=== PATIENT | female | born 1950 | race Caucasian/White ===

== ENCOUNTER 2020-06-24 20:01 | Inpatient (IN) ==
[2020-06-24] MEDS ORDERED: 0.9 % SODIUM CHLORIDE 1,000 ML IV ONE (20:19)
[2020-06-24] MEDS ORDERED: ONDANSETRON 4 MG/2 ML VIAL IV ONE (20:23)
--- NOTE | 2020-06-24 20:26 | Emergency Department Note ---
GI Bleed HPI General Chief complaint: Rectal Bleed Stated complaint: rectal bleeding Time Seen by Provider: 06/24/20 20:18 Source: EMS Mode of arrival: wheelchair Limitations: no limitations History of Present Illness HPI Narrative: Narrative: The patient presents to the ED this evening for rectal bleeding. She has a history of GI bleeds. She is on Eliquis for atrial fibrillation. On review of systems, she does complain of abdominal pain for the last couple days. She denies nausea or vomiting. She denies fever. She denies any rectal pain. She does feel lightheaded and has a general overall weakness. She denies focal weakness. Related Data Home Medications Medication Instructions Recorded Confirmed omeprazole 20 mg capsule,delayed 20 mg PO QDAY 02/07/19 06/24/20 release duloxetine 60 mg capsule,delayed 60 mg PO QDAY 02/18/19 06/24/20 release sprinkle diltiazem HCl 300 mg 300 mg PO QDAY 09/19/19 06/24/20 capsule,extended release 24 hr lisinopril 40 mg tablet 40 mg PO QDAY 09/19/19 06/24/20 metformin 500 mg tablet,extended 500 mg PO BID tab 11/12/19 06/24/20 release 24 hr Digestive Advantage 1 tab PO QDAY 02/11/20 06/24/20 amantadine HCl 100 mg capsule 100 mg PO BID 02/11/20 06/24/20 apixaban 5 mg tablet 5 mg PO BID tab 05/10/20 06/24/20 hydromorphone 2 mg tablet 2 mg PO Q4H PRN tab 05/10/20 06/24/20 potassium chloride 10 mEq 10 meq PO QDAY 05/10/20 06/24/20 tablet,extended release pregabalin 200 mg capsule 200 mg PO BID cap 05/10/20 06/24/20 Vitamin D3 1 tab PO QPM 06/24/20 06/24/20 Previous Rx's Medication Instructions Recorded furosemide 20 mg tablet 20 mg PO BID #60 tab 05/10/20 mirabegron 50 mg tablet,extended 25 mg PO QDAY #30 tab 05/13/20 release 24 hr Allergies Allergy/AdvReac Type Severity Reaction Status Date / Time amitriptyline Allergy Severe Unknown Verified 05/10/20 10:16 gabapentin Allergy Severe Unknown Verified 05/10/20 10:16 codeine [CODEINE] Allergy Intermediate RASH Verified 05/10/20 10:16 influenza virus vaccine ts Allergy Intermediate Vomiting Verified 05/10/20 10:16 [id number] (36 mos,up) [From Fluarix] Review of Systems ROS ROS Narrative: Narrative: All systems ED: reviewed and negative except as stated. [facility] Narrative Patient History Narrative: Narrative: Medical/Surgical/Family History All Active Problems (Updated 06/24/20 @ 22:21 by Lev Beltran MD) Urinary incontinence (Chronic) Disequilibrium (Chronic) Aphthae, oral (Chronic) Night cramp (Chronic) Actinic keratosis (Chronic) Perioral dermatitis (Chronic) Type 2 diabetes mellitus (Chronic) Hypertension (Chronic) Hyperlipidemia (Chronic) Intrinsic asthma, unspecified (Chronic) GERD (gastroesophageal reflux disease) (Chronic) Multiple sclerosis (Chronic) Urinary retention (Chronic) Situational depression (Chronic) Sweating (Chronic) [facility] prescription opiate use (Chronic) Low back pain (Chronic) Lumbar spinal stenosis (Chronic) Knee pain (Chronic) Hallux valgus with bunions (Chronic) Dermatitis (Chronic) COPD (chronic obstructive pulmonary disease) (Chronic) Proteinuria (Chronic) Encounter for monitoring chronic NSAID therapy (Chronic) At risk for polypharmacy (Chronic) Colitis (Acute) Edema (Acute) CKD stage G3a/A3, GFR 45-59 and albumin creatinine ratio >300 mg/g (Acute) Overactive bladder (Acute) Chronic pain (Acute) Acute GI bleeding (Acute) Acidosis, lactic (Acute) Leukocytosis, unspecified (Acute) Medical History (Updated 06/24/20 @ 22:21 by Lev Beltran MD) Actinic keratosis Aphthae, oral At risk for polypharmacy Just use 1 SSRI (wean of prozac) and continue duloxetine for neuropathy/chronic pain and anxiety-depression Try just Diltiazem in place of ACEi, BB & CCB for Rate control, anti- proteinuric effect and BP control. Use spironolactone starting with a low dose to avoid elevated K and stop Dyazide. COPD (chronic obstructive pulmonary disease) Dermatitis Perioral Disequilibrium Encounter for monitoring chronic NSAID therapy Chronic Excedrin Migraine use daily for years Nonnephrotic range proteinuria, hypertension, normal GFR Now starting Advil qHS to avoid Excedrine qHS due to caffeine GERD (gastroesophageal reflux disease) Hallux valgus with bunions Hyperlipidemia Hypertension Goal BP 130/80 using Rx with anti-proteinuric effects Intrinsic asthma, unspecified Knee pain [facility] prescription opiate use Low back pain Lumbar spinal stenosis Multiple sclerosis Night cramp Perioral dermatitis Proteinuria Low grade but steadily worsening. Could be DM, HTN or NSAID related. Start by breaking up the RAASI/NSAIDs potential interaction ny using diltiazem in place of High Dose Lisinopril Situational depression Sweating Type 2 diabetes mellitus Problems with hypoglycemia in the past, now elevated glucose and HgA1c on low dose metformin with HgA1c above goal of 7% Urinary incontinence Urinary retention Surgical History History of bilateral oophorectomy History of cataract surgery (~2017) History of cholecystectomy History of hysterectomy History of tonsillectomy and adenoidectomy Family History Family/Other Hypertension Multiple family members with hypertension Stroke Aunt Grandmother Myocardial infarction Stroke Grandfather Stroke Mother Hypertension Social History Smoking Status: Current some day smoker Alcohol Intake Frequency: does not drink Substance Use: does not use Exam Narrative Narrative: Narrative: General Limitations: no limitations General appearance: Present alert and in no apparent distress Head Head: Present atraumatic and normal inspection Eye Eye: Present normal appearance Neck Neck: Present normal inspection, full ROM and trachea midline Chest Chest: Present normal inspection and symmetric chest wall rise Respiratory Respiratory: Present normal lung sounds bilaterally; Absent respiratory distress Cardiovascular Cardiovascular: Present regular rate and irregular rhythm Adbominal Abdominal: Present soft, tenderness (Diffusely with no point of maximal tenderness), guarding (Mild voluntary) and normal bowel sounds; Absent distention, rebound and rigidity Extremities Extremities: Present normal inspection and full ROM Back Back: Present full ROM Neurological Neurological: Present alert, oriented X3 and CN II-XII intact; Absent motor sensory deficit Expanded Neurological Patient oriented to: Present person, place and time Speech: Present fluid speech CRANIAL NERVES: EOM function (II, III, IV, ): Normal, facial sensation (V): Normal, facial palsy (VII): Normal and tongue deviation (XII): Normal Motor strength - LUE: 5/5 Motor strength - RUE: 5/5 Motor strength - LLE: 5/5 Motor strength - RLE: 5/5 SENSORY EXAM UPPER EXTREMITY: Normal: light touch SENSORY EXAM LOWER EXTREMITY: Normal: light touch Psychiatric Psychiatric: Present normal affect and normal mood Skin Skin: Present warm (WNL) and dry Course Reevaluation(s) Reevaluation #1: I spoke to the on-call surgeon, Dr. Templeton. He agreed to admit this patient locally and asked me to write some basic holding orders. He indicated that he would order antibiotics for the patient. He did ask us to place an NG tube prior to the patient leaving the department Time: 22:20 Vital Signs Vital signs: Vital Signs Temperature 97.5 F 06/24/20 20:05 Pulse Rate 87 06/24/20 20:05 Respiratory Rate 30 H 06/24/20 20:05 Blood Pressure 96/77 06/24/20 20:05 Pulse Oximetry (%) 92 06/24/20 20:05 Temperature 97.5 F 06/24/20 20:05 Pulse Rate 96 H 06/24/20 22:19 Respiratory Rate 19 06/24/20 22:19 Blood Pressure 113/77 06/24/20 22:16 Pulse Oximetry (%) 94 06/24/20 22:19 [facility] MDM Narrative Medical decision making narrative: Narrative: The patient presents with rectal bleeding. She has a general overall weakness associated with this. She has a nonfocal neurologic exam so I have no concern for central nervous system origin. She has diffuse abdominal tenderness. Plan to obtain imaging of the abdomen and appropriate labs. We will give fluid in the ED and type and screen. Lab Data Lab results reviewed: Yes I reviewed the patient's lab results. Result diagrams: 06/24/20 20:43 06/24/20 20:43 Labs: Lab Results 06/24/20 06/24/20 06/24/20 Range/Units 20:43 20:43 20:43 WBC 23.1 H (4.5-11.0) K/mcL RBC 5.73 H (4.00-5.20) M/mcL Hgb 14.7 (12.0-15.0) g/dL Hct 49.2 H (36.0-48.0) % MCV 85.9 (80.0-100.0) fL MCH 25.7 L (26.0-34.0) pg MCHC 29.9 L (31.0-36.0) g/dL RDW 15.4 H (11.5-14.5) % Plt Count 303 (140-440) K/mcL MPV 10.9 H (7.4-10.4) fL Neut % (Auto) 85.1 H (38.0-78.0) % Lymph % (Auto) 5.0 L (15.0-49.0) % [place] % (Auto) 9.1 (1.0-12.0) % Eos % (Auto) 0.2 (0.0-7.0) % Baso % (Auto) 0.6 (0.0-2.0) % Lymph # (Auto) 1.15 L (1.50-4.80) K/mcL [place] # (Auto) 2.10 H (0.10-0.90) K/mcL Eos # (Auto) 0.04 (0.00-0.70) K/mcL Baso # (Auto) 0.14 (0.00-0.20) K/mcL Absolute Neutrophils 19.69 H (1.80-8.00) K/mcL POC PT 19.3 H (11.9-14.5) sec PT 15.5 H (11.9-14.5) sec POC INR 1.6 H (0.8-1.2) INR 1.2 H (0.9-1.1) APTT 26.2 (20.0-37.0) sec VBG Lactic Acid (0.5-2.0) mmol/L Sodium 140 (133-145) mmol/L Potassium 4.4 (3.3-5.1) mmol/L Chloride 102 (96-108) mmol/L Carbon Dioxide 19 L (22-30) mmol/L Anion Gap 19.0 H (8.0-16.0) BUN 35 H (8-23) mg/dL Creatinine 1.8 H (0.6-1.1) mg/dL POC Creatinine 2.1 H (0.6-1.2) mg/dL GFR Calculation 28 Glucose 288 H (70-105) mg/dL Calcium 9.6 (8.6-10.4) mg/dL Total Bilirubin 0.3 (0.1-1.0) mg/dL AST 68 H (<32) U/L ALT 27 (<40) U/L Alkaline Phosphatase 257 H (39-117) U/L Total Protein 6.9 (5.9-8.4) gm/dL Albumin 4.2 (3.2-5.2) gm/dL Globulin 2.7 (2.2-3.7) gm/dL Albumin/Globulin Ratio 1.6 (1.0-2.3) 06/24/20 Range/Units 20:43 WBC (4.5-11.0) K/mcL RBC (4.00-5.20) M/mcL Hgb (12.0-15.0) g/dL Hct (36.0-48.0) % MCV (80.0-100.0) fL MCH (26.0-34.0) pg MCHC (31.0-36.0) g/dL RDW (11.5-14.5) % Plt Count (140-440) K/mcL MPV (7.4-10.4) fL Neut % (Auto) (38.0-78.0) % Lymph % (Auto) (15.0-49.0) % [place] % (Auto) (1.0-12.0) % Eos % (Auto) (0.0-7.0) % Baso % (Auto) (0.0-2.0) % Lymph # (Auto) (1.50-4.80) K/mcL [place] # (Auto) (0.10-0.90) K/mcL Eos # (Auto) (0.00-0.70) K/mcL Baso # (Auto) (0.00-0.20) K/mcL Absolute Neutrophils (1.80-8.00) K/mcL POC PT (11.9-14.5) sec PT (11.9-14.5) sec POC INR (0.8-1.2) INR (0.9-1.1) APTT (20.0-37.0) sec VBG Lactic Acid 4.6 H* (0.5-2.0) mmol/L Sodium (133-145) mmol/L Potassium (3.3-5.1) mmol/L Chloride (96-108) mmol/L Carbon Dioxide (22-30) mmol/L Anion Gap (8.0-16.0) BUN (8-23) mg/dL Creatinine (0.6-1.1) mg/dL POC Creatinine (0.6-1.2) mg/dL GFR Calculation Glucose (70-105) mg/dL Calcium (8.6-10.4) mg/dL Total Bilirubin (0.1-1.0) mg/dL AST (<32) U/L ALT (<40) U/L Alkaline Phosphatase (39-117) U/L Total Protein (5.9-8.4) gm/dL Albumin (3.2-5.2) gm/dL Globulin (2.2-3.7) gm/dL Albumin/Globulin Ratio (1.0-2.3) Radiology Data Radiology results reviewed: Yes I reviewed the patient's radiology results. CC TIME Critical Care Time Critical Care Time: Yes Total Critical Care Time: 85 Discharge Plan Patient/Caregiver Discharge Instructions Pt seen by POMOLOGIST/PA only: No Clinical Impression: Acute GI bleeding, Acidosis, lactic Leukocytosis, unspecified Qualifiers: Leukocytosis type: unspecified Qualified Code(s): D72.829 - Elevated white blood cell count, unspecified Patient Disposition: Xfer As Inpt ([facility]) Condition: Serious Follow up with: Miya Crocker MD [Primary Care Provider] - Prescriptions: No Action Myrbetriq 50 mg tablet extended release 24 hr 25 mg PO QDAY Qty: 30 RF: 3 omeprazole 20 mg capsule,delayed release(DR/EC) 20 mg PO QDAY RF: 0 metformin 500 mg tablet extended release 24 hr 500 mg PO BID RF: 0 pregabalin 200 mg capsule 200 mg PO BID RF: 0 hydromorphone 2 mg tablet 2 mg PO Q4H PRN (Reason: Pain) RF: 0 amantadine HCl 100 mg capsule 100 mg PO BID RF: 0 Digestive Advantage 1 tab PO QDAY RF: 0 potassium chloride 10 mEq tablet extended release 10 meq PO QDAY RF: 0 furosemide 20 mg tablet 20 mg PO BID Qty: 60 RF: 11 Vitamin D3 50 mcg 1 tab PO QPM RF: 0 duloxetine 60 mg capsule, delayed rel sprinkle 60 mg PO QDAY RF: 0 diltiazem HCl [Cartia XT] 300 mg capsule,extended release 24hr 300 mg PO QDAY RF: 0 lisinopril 40 mg tablet 40 mg PO QDAY RF: 0 Eliquis 5 mg tablet 5 mg PO BID RF: 0
[2020-06-24] MEDS ORDERED: 0.9 % SODIUM CHLORIDE 250 ML IV SCH (20:30)
[2020-06-24 20:58] LABS: POC Creatinine 2.1 mg/dL (0.6-1.2)
[2020-06-24 21:00] LABS: POC INR 1.6 (0.8-1.2); POC Pro Time 19.3 sec (11.9-14.5)
[2020-06-24] MEDS: morphine 2 MG/ML VIAL IV PRN ×3 (21:05→23:22)
[2020-06-24 21:45] LABS: Basophils # (Auto) 0.14 K/mcL (0.00-0.20); Basophils % (Auto) 0.6 % (0.0-2.0); Eosinophils # (Auto) 0.04 K/mcL (0.00-0.70); Eosinophils % (Auto) 0.2 % (0.0-7.0); Hematocrit 49.2 % (36.0-48.0); Hemoglobin 14.7 g/dL (12.0-15.0); INR 1.2 (0.9-1.1); Lymphocytes # (Auto) 1.15 K/mcL (1.50-4.80); Mean Cell Volume 85.9 fL (80.0-100.0); Mean Corpuscular HGB Conc 29.9 g/dL (31.0-36.0); Mean Platelet Volume 10.9 fL (7.4-10.4); Monocytes % (Auto) 9.1 % (1.0-12.0); Neutrophils % (Auto) 85.1 % (38.0-78.0); Partial Thromboplastin Time 26.2 sec (20.0-37.0); Platelet Count 303 K/mcL (140-440); Prothrombin Time 15.5 sec (11.9-14.5); RBC 5.73 M/mcL (4.00-5.20); Red Cell Distribution Width 15.4 % (11.5-14.5); WBC 23.1 K/mcL (4.5-11.0)
[2020-06-24 21:54] LABS: ALT/SGPT 27 U/L (<40); AST/SGOT 68 U/L (<32); Albumin 4.2 gm/dL (3.2-5.2); Albumin/Globulin Ratio 1.6 (1.0-2.3); Alkaline Phosphatase 257 U/L (39-117); Bilirubin,Total 0.3 mg/dL (0.1-1.0); Blood Urea Nitrogen 35 mg/dL (8-23); Calcium 9.6 mg/dL (8.6-10.4); Carbon Dioxide 19 mmol/L (22-30); Chloride 102 mmol/L (96-108); Globulin 2.7 gm/dL (2.2-3.7); Glomerular Filtration Rate 28; Glucose 288 mg/dL (70-105)
[2020-06-24] MEDS ORDERED: ONDANSETRON 4 MG/2 ML VIAL IV PRN ×2 (22:22→22:30)
--- NOTE | 2020-06-24 22:30 | General Surg History&Physical ---
HPI History of Present Illness Patient information: Note initiated : 06/24/20 at 10:29 pm Service Date, if different from initiated Date: [] Patient: Rhea Miles 70 y/o F admitted on for rectal bleeding. Chief Complaint: [] Chief complaint: Rectal bleeding; constipation; abdominal pain; sepsis History of present illness: Ms. Miles is a 70 year old F who was brought to the emergency room for evaluation by her refrigeration plant operator. According to history given by the refrigeration plant operator the patient was having difficulty with bowel movements and had not had a bowel movement for 4days. She complained of increasing abdominal pain but did not have any nausea or vomiting. She was found sitting on the commode and had had a very large bowel movement which was hard. She had some rectal bleeding associated with this bowel movement. She was noted to be in diffuse sweats and was extremely weak. When seen in the emergency room she had tenderness of her abdomen and generalized weakness. She was mentally disoriented and her white blood count was 23.1. Hemoglobin 14.7, BUN 35, creatinine 1.8, lactic acid was 4.6. Abdominal x-ray showed dilated stomach with dilated transverse colon with stool in the right colon and the left colon leaving down to the rectum. This was confirmed by CT. She had some tachycardia. Patient is admitted and with good results and she is now passing liquid stool without difficulty. She still somewhat confused. The patient had a similar episode with rectal bleeding and abdominal pain in April 2019. This was managed as an outpatient and subsequently resolved. Constitutional Constitutional: Present anorexia, chills, fatigue, lethargy, malaise and weakness EENT Eyes: Present other ( Patient is not alert enough to answer questions) Ears: Present decreased hearing Nose, mouth and throat: Present abnormal hearing Cardiovascular Cardiovascular: Present irregular heart rhythm and rapid heart rate; Absent dyspnea and pedal edema Respiratory Respiratory: Absent cough, wheezing and stridor Gastrointestinal Gastrointestinal: Present abdominal pain, constipation, hematochezia and tenesmus Genitourinary Genitourinary: Present difficulty voiding, urinary frequency and urinary urgency Musculoskeletal Additional comments: Difficult to determine Integumentary Integumentary: Present unusual bruising Neurological Neurological: Present abnormal gait, confusion, lack of coordination and restless legs Psychiatric Psychiatric: Present confusion, difficulty concentrating and memory loss Endocrine Endocrine: Present as per HPI Hematologic/Lymphatic Hematologic/Lymphatic: Present easy bleeding (Patient is on chronic Eliquis therapy) Allergic/Immunologic Allergic/Immunologic: Absent tongue swelling, uticaria, wheezing and lip s welling PFSH PFSH All Active Problems (Updated 06/25/20 @ 11:17 by Cindy Templeton MD) Therapeutic opioid-induced constipation (OIC) (Acute) Rectal bleeding (Acute) Urinary incontinence (Chronic) Disequilibrium (Chronic) Aphthae, oral (Chronic) Night cramp (Chronic) Actinic keratosis (Chronic) Perioral dermatitis (Chronic) Type 2 diabetes mellitus (Chronic) Hypertension (Chronic) Hyperlipidemia (Chronic) Intrinsic asthma, unspecified (Chronic) GERD (gastroesophageal reflux disease) (Chronic) Multiple sclerosis (Chronic) Urinary retention (Chronic) Situational depression (Chronic) 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 (Chronic) 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 opiate use (Chronic) Low back pain (Chronic) Lumbar spinal stenosis (Chronic) Knee pain (Chronic) Hallux valgus with bunions (Chronic) Dermatitis (Chronic) COPD (chronic obstructive pulmonary disease) (Chronic) Proteinuria (Chronic) Encounter for monitoring chronic NSAID therapy (Chronic) At risk for polypharmacy (Chronic) Colitis (Acute) Edema (Acute) CKD stage G3a/A3, GFR 45-59 and albumin creatinine ratio >300 mg/g (Acute) Overactive bladder (Acute) Chronic pain (Acute) Acute GI bleeding (Acute) Acidosis, lactic (Acute) Leukocytosis, unspecified (Acute) Medical History (Updated 06/25/20 @ 11:17 by Cindy Templeton MD) Actinic keratosis Aphthae, oral At risk for polypharmacy Just use 1 SSRI (wean of prozac) and continue duloxetine for neuropathy/chronic pain and anxiety-depression Try just Diltiazem in place of ACEi, BB & CCB for Rate control, anti- proteinuric effect and BP control. Use spironolactone starting with a low dose to avoid elevated K and stop Dyazide. COPD (chronic obstructive pulmonary disease) Dermatitis Perioral Disequilibrium Encounter for monitoring chronic NSAID therapy Chronic Excedrin Migraine use daily for years Nonnephrotic range proteinuria, hypertension, normal GFR Now starting Advil qHS to avoid Excedrine qHS due to caffeine GERD (gastroesophageal reflux disease) Hallux valgus with bunions Hyperlipidemia Hypertension Goal BP 130/80 using Rx with anti-proteinuric effects Intrinsic asthma, unspecified Knee pain 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 opiate use Low back pain Lumbar spinal stenosis Multiple sclerosis Night cramp Perioral dermatitis Proteinuria Low grade but steadily worsening. Could be DM, HTN or NSAID related. Start by breaking up the RAASI/NSAIDs potential interaction ny using d iltiazem in place of High Dose Lisinopril Situational depression Sweating Type 2 diabetes mellitus Problems with hypoglycemia in the past, now elevated glucose and HgA1c on low dose metformin with HgA1c above goal of 7% Urinary incontinence Urinary retention Surgical History History of bilateral oophorectomy History of cataract surgery (~2017) History of cholecystectomy History of hysterectomy History of tonsillectomy and adenoidectomy Family History Family/Other Hypertension Multiple family members with hypertension Stroke Aunt Grandmother Myocardial infarction Stroke Grandfather Stroke Mother Hypertension Social History marital status: occupational status: disabled smoking status start date: 02/13/1964 smoking status stop date: 02/13/16 alcohol intake frequency: does not drink substance use type: does not use MEDS/ALLERGIES Home Medications and Allergies Home Medications Medication Instructions Recorded Confirmed Type omeprazole 20 mg capsule,delayed 20 mg PO QDAY 02/07/19 06/24/20 History release duloxetine 60 mg capsule,delayed 60 mg PO QHS 02/18/19 06/25/20 History release sprinkle diltiazem HCl 300 mg 300 mg PO QDAY 09/19/19 06/25/20 History capsule,extended release 24 hr lisinopril 40 mg tablet 40 mg PO QDAY 09/19/19 06/24/20 History metformin 500 mg tablet,extended 500 mg PO BID tab 11/12/19 06/24/20 History release 24 hr Digestive Advantage 1 tab PO QDAY 02/11/20 06/24/20 History amantadine HCl 100 mg capsule 100 mg PO BID 02/11/20 06/25/20 History apixaban 5 mg tablet 5 mg PO BID tab 05/10/20 06/25/20 History furosemide 20 mg tablet 20 mg PO BID #60 tab 05/10/20 06/24/20 Rx hydromorphone 2 mg tablet 2 mg PO Q4H PRN tab 05/10/20 06/24/20 History potassium chloride 10 mEq 10 meq PO QDAY 05/10/20 06/24/20 History tablet,extended release pregabalin 200 mg capsule 200 mg PO BID cap 05/10/20 06/24/20 History mirabegron 50 mg tablet,extended 25 mg PO QDAY #30 tab 05/13/20 06/24/20 Rx release 24 hr Vitamin D3 1 tab PO QPM 06/24/20 06/24/20 History Allergies Allergy/AdvReac Type Severity Reaction Status Date / Time amitriptyline Allergy Unknown Unknown Verified 06/25/20 06:34 gabapentin Allergy Unknown Unknown Verified 06/25/20 06:34 codeine [CODEINE] AdvReac Mild Itching Verified 06/25/20 06:34 influenza virus vaccine ts AdvReac Mild Vomiting Verified 06/25/20 06:34 [id number] (36 mos,up) [From Fluarix] Physical Examination Vital Signs Vital signs: Temp Pulse Resp BP Pulse Ox 97.5 F 96 H 19 113/77 94 06/24/20 20:05 06/24/20 22:19 06/24/20 22:19 06/24/20 22:16 06/24/20 22:19 General physical appearance General physical exam: chronically ill and obese Eyes Eye exam: PERRL, normal ocular movement and other (Unable to determine if patient can focus) ENT ENT exam: decreased hearing Head Head exam IM: Present atraumatic, normal inspection and normocephalic Neck Neck exam: no masses, no bruits, trachea midline, no lymphadenopathy and no venous distension Cardiovascular Cardiovascular exam IM: Present irregular rhythm (Irregularly irregular rhythm with average rate of 130) and tachycardia Respiratory Respiratory exam: normal respiratory effort and clear to auscultation Abdomen Abdomen: Present tender (Diffusely tender in both lower quadrants and in the epigastrium) Rectum Rectum: Present other (Poor anal tone with liquid stool; no fresh blood per rectum; no anal or rectal mass or fissure) Integumentary Integumentary: Present other (Diffuse ecchymoses and bruising in lower extremities and upper extremities) Neurologic Neurologic: Present disoriented, confused, memory loss and other (Unable to determine motor or sensory status) Musculoskeletal Musculoskeletal: Present other (Patient cannot ambulate) Psychiatric Psychiatric: Present other (She is confused and disoriented at this time; speech is not intelligible) Results Labs Result diagrams: 06/25/20 04:59 06/25/20 04:59 Labs: Abnormal lab results 06/24/20 06/24/20 06/24/20 Range/Units 20:43 20:43 20:43 WBC 23.1 H (4.5-11.0) K/mcL RBC 5.73 H (4.00-5.20) M/mcL Hct 49.2 H (36.0-48.0) % MCH 25.7 L (26.0-34.0) pg MCHC 29.9 L (31.0-36.0) g/dL RDW 15.4 H (11.5-14.5) % MPV 10.9 H (7.4-10.4) fL Neut % (Auto) 85.1 H (38.0-78.0) % Lymph % (Auto) 5.0 L (15.0-49.0) % Lymph # (Auto) 1.15 L (1.50-4.80) K/mcL Gove # (Auto) 2.10 H (0.10-0.90) K/mcL Absolute Neutrophils 19.69 H (1.80-8.00) K/mcL POC PT 19.3 H (11.9-14.5) sec PT 15.5 H (11.9-14.5) sec POC INR 1.6 H (0.8-1.2) INR 1.2 H (0.9-1.1) VBG Lactic Acid (0.5-2.0) mmol/L Carbon Dioxide 19 L (22-30) mmol/L Anion Gap 19.0 H (8.0-16.0) BUN 35 H (8-23) mg/dL Creatinine 1.8 H (0.6-1.1) mg/dL POC Creatinine 2.1 H (0.6-1.2) mg/dL Glucose 288 H (70-105) mg/dL AST 68 H (<32) U/L Alkaline Phosphatase 257 H (39-117) U/L 06/24/20 Range/Units 20:43 WBC (4.5-11.0) K/mcL RBC (4.00-5.20) M/mcL Hct (36.0-48.0) % MCH (26.0-34.0) pg MCHC (31.0-36.0) g/dL RDW (11.5-14.5) % MPV (7.4-10.4) fL Neut % (Auto) (38.0-78.0) % Lymph % (Auto) (15.0-49.0) % Lymph # (Auto) (1.50-4.80) K/mcL Gove # (Auto) (0.10-0.90) K/mcL Absolute Neutrophils (1.80-8.00) K/mcL POC PT (11.9-14.5) sec PT (11.9-14.5) sec POC INR (0.8-1.2) INR (0.9-1.1) VBG Lactic Acid 4.6 H* (0.5-2.0) mmol/L Carbon Dioxide (22-30) mmol/L Anion Gap (8.0-16.0) BUN (8-23) mg/dL Creatinine (0.6-1.1) mg/dL POC Creatinine (0.6-1.2) mg/dL Glucose (70-105) mg/dL AST (<32) U/L Alkaline Phosphatase (39-117) U/L Diabetes panel 06/24/20 Range/Units 20:43 Sodium 140 (133-145) mmol/L Potassium 4.4 (3.3-5.1) mmol/L Chloride 102 (96-108) mmol/L Carbon Dioxide 19 L (22-30) mmol/L BUN 35 H (8-23) mg/dL Creatinine 1.8 H (0.6-1.1) mg/dL Glucose 288 H (70-105) mg/dL Calcium 9.6 (8.6-10.4) mg/dL AST 68 H (<32) U/L ALT 27 (<40) U/L Alkaline Phosphatase 257 H (39-117) U/L Total Protein 6.9 (5.9-8.4) gm/dL Albumin 4.2 (3.2-5.2) gm/dL Calcium panel 06/24/20 Range/Units 20:43 Calcium 9.6 (8.6-10.4) mg/dL Albumin 4.2 (3.2-5.2) gm/dL Pituitary panel 06/24/20 Range/Units 20:43 Sodium 140 (133-145) mmol/L Potassium 4.4 (3.3-5.1) mmol/L Chloride 102 (96-108) mmol/L Carbon Dioxide 19 L (22-30) mmol/L BUN 35 H (8-23) mg/dL Creatinine 1.8 H (0.6-1.1) mg/dL Glucose 288 H (70-105) mg/dL Calcium 9.6 (8.6-10.4) mg/dL Adrenal panel 06/24/20 Range/Units 20:43 Sodium 140 (133-145) mmol/L Potassium 4.4 (3.3-5.1) mmol/L Chloride 102 (96-108) mmol/L Carbon Dioxide 19 L (22-30) mmol/L BUN 35 H (8-23) mg/dL Creatinine 1.8 H (0.6-1.1) mg/dL Glucose 288 H (70-105) mg/dL Calcium 9.6 (8.6-10.4) mg/dL Total Bilirubin 0.3 (0.1-1.0) mg/dL AST 68 H (<32) U/L ALT 27 (<40) U/L Alkaline Phosphatase 257 H (39-117) U/L Total Protein 6.9 (5.9-8.4) gm/dL Albumin 4.2 (3.2-5.2) gm/dL All other labs normal. 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 Start Relistor every 12 hours Follow-up abdominal x-rays in the morning Vigorous hydration and control of blood sugars Zosyn IV every 6 hours pending blood cultures Time Spent With Patient Time: Total time spent is greater than 50% in coordination of care (as documented) at patient's floor/unit and/or counseling patient:
[2020-06-24] MEDS ORDERED: HYDROmorphone 0.5 MG/0.5 ML SYRINGE IV PRN (22:36)
[2020-06-24 23:23] LABS: Hemoglobin A1C 7.2 % Hgb (4.0-6.0)
[2020-06-24] MEDS: 0.9 % SODIUM CHLORIDE 1,000 ML IV SCH (23:36)
[2020-06-24] MEDS ORDERED: METHYLNALTREXONE BROMIDE 12 MG/0.6 ML SYRINGE SC SCH (23:45)
[2020-06-24] MEDS: 0.9 % SODIUM CHLORIDE 10 ML SYRINGE IV SCH (23:55)
[2020-06-24] MEDS: PIPERACILLIN SODIUM/TAZOBACTAM 3.375 GM in DEXTROSE 5% IN WATER 50 ML IV SCH (23:55)
[2020-06-25] MEDS: ACETAMINOPHEN 1,000 MG/100 ML BAG IV SCH ×3 (00:42→10:59)
[2020-06-25] MEDS: 0.9 % SODIUM CHLORIDE 10 ML SYRINGE IV SCH ×7 (00:45→20:43)
[2020-06-25 01:06] LABS: Appearance,Urine HAZY (Clear); Bilirubin,Urine Negative (Negative); Color,Urine AMBER; Culture Indicated,Urine No; Glucose,Urine (UA) Negative (Negative); Ketones,Urine 5 mg/dL (Negative); Leukocyte Esterase,Urine Negative /ug (Negative); Mucus,Urine MOD /hpf; Nitrate,Urine Negative (Negative); Protein,Urine 100 mg/dL (Negative); Specific Gravity,Urine 1.026 (1.000-1.035); Urine Amorphous Crystals MOD /hpf; Urine Blood Negative (Negative); Urine Hyaline Cast 27 /lph (0-2); Urine RBC 2 /hpf (0-3); Urine Squamous Epithelial Cell < 1 /hpf (0-4); Urine WBC 2 /hpf (0-4)
[2020-06-25] MEDS: PIPERACILLIN SODIUM/TAZOBACTAM 3.375 GM in DEXTROSE 5% IN WATER 50 ML IV SCH ×6 (05:25→17:33)
[2020-06-25] MEDS ORDERED: DEXTROSE 31 GM ORAL.SUSP PO PRN ×2 (05:43→16:04)
[2020-06-25] MEDS ORDERED: DEXTROSE 50% 50 ML VIAL IV PRN ×2 (05:43→16:04)
[2020-06-25] MEDS: INSULIN LISPRO 1 UNIT/0.01 ML UNIT SQ SCH ×3 (05:48→17:55)
[2020-06-25] MEDS ORDERED: INSULIN LISPRO 1 UNIT/0.01 ML UNIT SQ ONE (05:48)
[2020-06-25 06:16] LABS: Basophils # (Auto) 0.07 K/mcL (0.00-0.20); Basophils % (Auto) 0.4 % (0.0-2.0); Eosinophils # (Auto) 0.01 K/mcL (0.00-0.70); Eosinophils % (Auto) 0.1 % (0.0-7.0); Hematocrit 46.7 % (36.0-48.0); Hemoglobin 14.1 g/dL (12.0-15.0); Lymphocytes # (Auto) 0.45 K/mcL (1.50-4.80); Lymphocytes % (Auto) 2.7 % (15.0-49.0); Mean Cell Volume 84.9 fL (80.0-100.0); Mean Corpuscular HGB Conc 30.2 g/dL (31.0-36.0); Mean Platelet Volume 11.3 fL (7.4-10.4); Monocytes # (Auto) 1.11 K/mcL (0.10-0.90); Monocytes % (Auto) 6.6 % (1.0-12.0); Neutrophils % (Auto) 90.2 % (38.0-78.0); Platelet Count 266 K/mcL (140-440); Red Cell Distribution Width 15.3 % (11.5-14.5); WBC 16.9 K/mcL (4.5-11.0)
[2020-06-25] MEDS ORDERED: METOPROLOL TARTRATE 5 MG/5 ML VIAL IV PRN (06:25)
[2020-06-25] MEDS: METOPROLOL TARTRATE 5 MG/5 ML VIAL IV ONE ×2 (06:50→07:58)
[2020-06-25 07:04] LABS: ALT/SGPT 25 U/L (<40); AST/SGOT 44 U/L (<32); Albumin 3.5 gm/dL (3.2-5.2); Albumin/Globulin Ratio 1.3 (1.0-2.3); Alkaline Phosphatase 159 U/L (39-117); Bilirubin,Direct < 0.2 mg/dL (0-0.3); Bilirubin,Total 0.3 mg/dL (0.1-1.0); Blood Urea Nitrogen 43 mg/dL (8-23); Calcium 9.1 mg/dL (8.6-10.4); Carbon Dioxide 22 mmol/L (22-30); Chloride 102 mmol/L (96-108); Globulin 2.7 gm/dL (2.2-3.7); Glomerular Filtration Rate 30; Glucose 205 mg/dL (70-105); Lactate Dehydrogenase 313 U/L (135-225); Phosphorous 5.5 mg/dL (2.5-4.5); Triglycerides 89 mg/dL (<150); Uric Acid 8.1 mg/dL (2.5-8.0)
[2020-06-25] MEDS ORDERED: PANTOPRAZOLE 40 MG VIAL IV SCH (07:30)
[2020-06-25] MEDS: 0.9 % SODIUM CHLORIDE 1,000 ML IV SCH ×3 (07:41→17:12)
--- NOTE | 2020-06-25 08:57 | Cat Scan Report ---
History: Abdominal pain, rectal bleeding TECHNIQUE: The abdomen was imaged without oral or intravenous contrast scanning from the diaphragm to the symphysis pubis. Sagittal and coronal reformats are created. The radiation exposure was limited using dose reduction technology. FINDINGS: Evaluation of abdominal organs without contrast is somewhat limited. The liver and spleen are normal in size and homogeneous. The gallbladder has been removed. The extrahepatic bile ducts are mildly dilated measure up to 12 mm. Common bile duct tapers to normal caliber to the ampulla. There is no evidence of a stone or mass in the distal duct. The pancreas is normal without evidence of a mass or inflammation. Pancreatic duct is nondilated. The adrenals are normal. Kidneys are normal in size shape and contour. There are multiple intralobar atherosclerotic plaques in both kidneys. Some of these mimicked kidney stones. There is no hydronephrosis. No mass or cyst are identified in either kidney. Moderate amount of atherosclerotic plaque is present in the aorta. Aorta is ectatic. The midportion measures 2.9 x 3.0 cm. Uterus and ovaries are been removed. There is a small appendiceal stump which is noninflamed. Fecal impaction is present throughout the colon. There are no diverticula. No transition point is seen in the large intestine. There is no evidence of colitis. Small intestine is normal in caliber, except for mild dilatation of the terminal ileum where measures 3.2 cm. There is a large amount of ingested fluid in the stomach. Trace amount of ascites is seen deep in the right lower pelvis. There is no evidence of an abscess or adenopathy. Degenerative changes are present at multiple levels in the spine. There is grade 1 spondylolisthesis at L4-5 due to arthritis in the facet joints. Comparison with the prior exam from 04/20/19 shows greater fecal impaction at this time. The extrahepatic bile ducts have increased in diameter. Common bile duct previously measured 8 mm. IMPRESSION: Fecal impaction. The source of the rectal bleeding is not identified. Increased dilatation of the extrahepatic bile ducts. This could be due to a stricture at the ampulla or reservoir effect following the cholecystectomy.. Interpreted and Authenticated by: Calvin Triplett 06/25/20
--- NOTE | 2020-06-25 08:58 | XRay Report ---
HISTORY: Nasogastric tube insertion FINDINGS: Nasogastric tube is been inserted and the body the stomach. The sidehole of the catheter is at the level of the gastroesophageal junction. There is still a moderate amount of fluid and gas in the stomach. Small intestine is nondistended. There is gas and stool in the colon. IMPRESSION: Well-positioned nasogastric tube Interpreted and Authenticated by: Calvin Triplett 06/25/20
[2020-06-25] MEDS ORDERED: METHYLNALTREXONE BROMIDE 12 MG/0.6 ML SYRINGE SQ SCH (09:00)
[2020-06-25] MEDS ORDERED: DOCUSATE SODIUM 100 MG CAPSULE PO SCH (09:00)
--- NOTE | 2020-06-25 09:20 | XRay Report ---
HISTORY: Preop for rectal bleeding FINDINGS: Small band of discoid atelectasis is seen above the left costophrenic sulcus. The lungs are otherwise clear and normally expanded. The heart size and pulmonary vasculature are normal. There is no pleural effusion. Nasogastric tube passes through the esophagus into the stomach. IMPRESSION: Minor discoid atelectasis at the left costophrenic sulcus Interpreted and Authenticated by: Calvin Triplett 06/25/20
--- NOTE | 2020-06-25 09:24 | XRay Report ---
HISTORY: Follow-up ileus FINDINGS: The stomach is now partially decompressed. Nasogastric tube remains in the body and the sidehole at the gastroesophageal junction. The distended large intestine seen on the preceding CT scan has resolved. Small intestine is not distended. There are no abnormal air-fluid levels. No free intra-abdominal air is present. There are clips in the gallbladder fossa. Multiple vascular calcifications are seen in the abdomen or pelvis. IMPRESSION: Resolved ileus Interpreted and Authenticated by: Calvin Triplett 06/25/20
[2020-06-25] MEDS: METOPROLOL TARTRATE 5 MG/5 ML VIAL IV PRN ×5 (09:40→22:14)
[2020-06-25] MEDS ORDERED: 0.9 % SODIUM CHLORIDE 1,000 ML IV ONE (10:30)
--- NOTE | 2020-06-25 11:34 | General Surgery Progress Note ---
SUBJECTIVE Subjective Patient information: Note initiated : 06/25/20 at 11:28 am Service Date, if different from initiated Date: [] Patient: Rhea Miles 70 y/o F admitted on 06/24/20 for rectal bleeding. Chief Complaint: [] Interval history: Patient is more confused today. She seems quite agitated. She does not answer questions appropriately. She has been afebrile. She had multiple bowel movements last evening. There is only a small amount of blood noted. White blood count 16.9, hemoglobin 14.1, hematocrit 46.7, potassium 5.3, BUN 43, creatinine 1.7, lactic acid 2.2. Constitutional Vitals: Vital Signs Temp Pulse Resp BP Pulse Ox 98.4 F 125 H 19 129/74 95 06/25/20 08:01 06/25/20 10:16 06/25/20 10:16 06/25/20 10:16 06/25/20 10:16 Period Temp Pulse Resp BP Sys/Weinstein Pulse Ox Last 24 Hr 97.4 F-98.4 F 86-138 14-30 95-165/69-137 88-96 Intake and Output 06/24/20 06/25/20 06/25/20 21:59 05:59 13:59 Intake Total 2186 042 3862 Output Total 1535 180 Balance 1000 -1385 970 Weight 190 lb 188 lb 8 oz Intake & Output: Intake & Output 06/24/20 06/25/20 06/25/20 21:59 05:59 13:59 Intake Total 4452 118 9789 Output Total 1535 180 Balance 1000 -1385 970 Weight 190 lb 188 lb 8 oz Intake: IV 4799 988 0791 Sodium Chloride 0.9% 1,000 ml @ 1000 1000 150 mls/hr IV .[id number] EMMANUELLE Rx#: [id number] Zosyn 3.375 gm In Dextrose 5% 50 50 in Water 50 ml @ 100 mls/hr IV Q6H EMMANUELLE Rx#:[id number] Output: Gastric Drainage 1275 Right Nare NG/OG 1275 Urine Catheter Amount 260 30 Void Amount 150 Other: Urine Appearance Clear Clear Uretheral (Saleh) Clear Urine Color Dark Chela Light Chela Uretheral (Saleh) Dark Chela Urine Odor Normal Stool Size Small Moderate Stool Color Brown Blood Tinged Blood Tinged Stool Consistency Watery Liquid Loose # of times incontinent of 1 Bowels Head Head exam: Present atraumatic, normal inspection and normocephalic Eye Eye exam: Present EOMI Pupils: Present PERRL ENT ENT exam: Present mucous membranes dry and normal exam Neck Neck exam: Present full ROM; Absent lymphadenopathy, tenderness and thyromegaly Respiratory Respiratory exam: Present normal respiratory exam and CTAB; Absent accessory muscle use, rhonchi and wheezes Cardiovascular Cardiovascular exam: Present irregular rhythm, +S1 and +S2; Absent JVD GI/Abdominal GI/Abdominal exam: Present normal bowel sounds, distended and tenderness (Diffuse abdominal tenderness; active bowel sounds; no mass noted) Rectal Rectal exam: Present normal rectal tone (Poor anal sphincter tone; no solid stool in rectal vault); Absent mass and tenderness Extremities Exam Extremities exam: Present full ROM and normal inspection; Absent calf tenderness, pedal edema and tenderness Neurological Exam Additional comments: Patient is poorly oriented and does not follow commands or answer questions Psychiatric Psychiatric exam: Present agitated and anxious Skin Skin exam: Present petechiae and warm; Absent erythema and pallor A/P Assessment and plan (1) Therapeutic opioid-induced constipation (OIC): Status: Acute (2) Rectal bleeding: Status: Acute (3) Type 2 diabetes mellitus: Status: Chronic Comment: Problems with hypoglycemia in the past, now elevated glucose and HgA1c on low dose metformin with HgA1c above goal of 7% Qualifiers: Diabetes mellitus intermediate teacher insulin use: without intermediate teacher use Diabetes mellitus complication status: with neurologic complications Diabetes mellitus complication detail: with polyneuropathy Qualified Code(s): E11.42 - Type 2 diabetes mellitus with diabetic polyneuropathy (4) Hypertension: Status: Chronic Comment: Goal BP 130/80 using Rx with anti-proteinuric effects Qualifiers: Hypertension type: essential hypertension Qualified Code(s): I10 - Essential (primary) hypertension (5) CKD stage G3a/A3, GFR 45-59 and albumin creatinine ratio >300 mg/g: Status: Acute Comment: Could be diabetic nephropathy but the presentation is not classic. Continue RASSI therapy and diltiazem for their anti-proteinuric effects Every 3-month assessment of random urine protein creatinine ratio Change triamterene hydrochlorothiazide to furosemide for edema (6) Acidosis, lactic: Status: Acute (7) GERD (gastroesophageal reflux disease): Status: Chronic (8) Situational depression: Status: Chronic (9) [facility] prescription opiate use: Status: Chronic (10) COPD (chronic obstructive pulmonary disease): Status: Chronic Narrative A/P Narrative: Continue with RELISTOR Discontinue nasogastric tube Trial of clear liquids MiraLAX p.o. x4 doses Follow-up abdominal x-rays in the morning Check labs in the morning Probably switch to oral medications tomorrow Time Spent With Patient Time: Total time spent is greater than 50% in coordination of care (as documented) at patient's floor/unit and/or counseling patient:
[2020-06-25] MEDS ORDERED: POLYETHYLENE GLYCOL 3350 17 GM PACKET PO SCH (12:00)
[2020-06-25] MEDS ORDERED: morphine 2 MG/ML VIAL IV PRN (16:04)
[2020-06-25] MEDS: PANTOPRAZOLE 40 MG VIAL IV SCH (16:34)
[2020-06-25] MEDS ORDERED: ACETAMINOPHEN 1,000 MG/100 ML BAG IV SCH (17:00)
[2020-06-25] MEDS: POLYETHYLENE GLYCOL 3350 17 GM PACKET PO SCH (17:30)
[2020-06-25] MEDS: DOCUSATE SODIUM 100 MG CAPSULE PO SCH (20:41)
[2020-06-25] MEDS: SENNOSIDES 1 TABLET PO SCH (20:42)
[2020-06-25] MEDS ORDERED: SENNOSIDES 1 TABLET PO SCH (21:00)
[2020-06-25] MEDS ORDERED: hydrALAZINE 20 MG/ML VIAL ONE (22:47)
[2020-06-25] MEDS: hydrALAZINE 20 MG/ML VIAL IV PRN (22:50)
[2020-06-25] MEDS: HYDROmorphone 0.5 MG/0.5 ML SYRINGE IV PRN (23:15)
[2020-06-26] MEDS: PIPERACILLIN SODIUM/TAZOBACTAM 3.375 GM in DEXTROSE 5% IN WATER 50 ML IV SCH ×4 (00:01→17:17)
[2020-06-26] MEDS: POLYETHYLENE GLYCOL 3350 17 GM PACKET PO SCH ×2 (00:17→05:36)
[2020-06-26] MEDS: INSULIN LISPRO 1 UNIT/0.01 ML UNIT SQ SCH ×4 (00:26→17:36)
[2020-06-26] MEDS: 0.9 % SODIUM CHLORIDE 10 ML SYRINGE IV SCH ×6 (00:30→22:34)
[2020-06-26] MEDS: METOPROLOL TARTRATE 5 MG/5 ML VIAL IV PRN ×4 (00:31→06:50)
[2020-06-26] MEDS: 0.9 % SODIUM CHLORIDE 1,000 ML IV SCH ×4 (01:25→13:30)
[2020-06-26] MEDS: HYDROmorphone 0.5 MG/0.5 ML SYRINGE IV PRN ×5 (03:06→23:34)
[2020-06-26] MEDS ORDERED: hydrALAZINE 20 MG/ML VIAL ONE (05:34)
[2020-06-26] MEDS: hydrALAZINE 20 MG/ML VIAL IV PRN (05:37)
[2020-06-26] MEDS: PANTOPRAZOLE 40 MG VIAL IV SCH ×2 (07:17→17:03)
[2020-06-26 08:02] LABS: Hematocrit 40.1 % (36.0-48.0); Hemoglobin 12.7 g/dL (12.0-15.0); Mean Cell Volume 81.2 fL (80.0-100.0); Mean Corpuscular HGB Conc 31.7 g/dL (31.0-36.0); Mean Platelet Volume 11.1 fL (7.4-10.4); Platelet Count 239 K/mcL (140-440); RBC 4.94 M/mcL (4.00-5.20); Red Cell Distribution Width 15.5 % (11.5-14.5); WBC 11.1 K/mcL (4.5-11.0)
[2020-06-26 08:30] LABS: ALT/SGPT 17 U/L (<40); AST/SGOT 22 U/L (<32); Alkaline Phosphatase 77 U/L (39-117); Bilirubin,Direct < 0.2 mg/dL (0-0.3); Bilirubin,Total 0.4 mg/dL (0.1-1.0); Blood Urea Nitrogen 18 mg/dL (8-23); Calcium 8.7 mg/dL (8.6-10.4); Carbon Dioxide 21 mmol/L (22-30); Chloride 107 mmol/L (96-108); Globulin 2.9 gm/dL (2.2-3.7); Glomerular Filtration Rate 74; Glucose 204 mg/dL (70-105); Lactate Dehydrogenase 249 U/L (135-225); Phosphorous 1.4 mg/dL (2.5-4.5); Triglycerides 136 mg/dL (<150); Uric Acid 3.9 mg/dL (2.5-8.0)
[2020-06-26 08:52] LABS: Anisocytosis 1+ (None Seen); Band Neutrophils % 17 % (0-10); Eosinophils % (Manual) 2 % (0-7); Lymphocytes % 9 % (15-49); Monocytes % (Manual) 6 % (1-12); Platelet Estimate NORMAL (Normal); RBC Morphology ABNORMAL (Normal); Reactive Lymphocytes 1 % (0-2); Segmented Neutrophils % 65 % (38-78)
[2020-06-26] MEDS: METHYLNALTREXONE BROMIDE 12 MG/0.6 ML SYRINGE SQ SCH ×2 (08:56→13:44)
[2020-06-26] MEDS: DOCUSATE SODIUM 100 MG CAPSULE PO SCH ×3 (08:57→20:16)
[2020-06-26] MEDS: DILTIAZEM 120 MG CAP.XL.24H PO SCH ×2 (08:58→10:00)
[2020-06-26] MEDS: DILTIAZEM 180 MG CAP.XL.24H PO SCH (08:58)
[2020-06-26] MEDS: DILTIAZEM 125 MG in DEXTROSE 5% IN WATER 100 ML IV SCH ×3 (10:00→22:33)
[2020-06-26] MEDS ORDERED: MAGNESIUM SULFATE 4 GM/100 ML BAG IV ONE (10:43)
--- NOTE | 2020-06-26 11:02 | XRay Report ---
HISTORY: Rectal bleeding, follow-up bowel obstruction FINDINGS: There are couple loops of dilated small intestine in the left upper quadrant. They measure up to 4.5 cm in diameter. These contain air-fluid levels. This is new since 06/25/20. There is also air in nondilated large intestine. The wall of the descending colon is thickened, causing significant distortion of the lumen. This is a new finding since the abdomen CT scan performed on 06/24/20. The finding is suggestive of colitis. IMPRESSION: Probable colitis of the descending colon Focal ileus in the left upper quadrant Interpreted and Authenticated by: Calvin Triplett 06/26/20
--- NOTE | 2020-06-26 11:22 | General Surgery Progress Note ---
SUBJECTIVE Subjective Patient information: Note initiated : 06/26/20 at 11:11 am Service Date, if different from initiated Date: [] Patient: Rhea Miles 70 y/o F admitted on 06/24/20 for rectal bleeding. Chief Complaint: [] Principal diagnosis: Fecal impaction; rectal bleeding due to mucosal tear; atrial fibrillation; Interval history: Patient has done relatively well. She has been confused most of the night and remains confused at this time. She has had atrial flutter but with a fast ventricular response but her blood pressure has been controlled. She was hypertensive earlier this morning and this has been treated with IV metoprolol and IV Apresoline. Her heart rate is between 130-140.. She has had multiple liquid bowel movements. She complains of tenderness in her abdomen diffusely. She has good active bowel sounds. X-rays of abdomen shows small amount of transverse colon gas with totally decompressed left colon extending down to the rectum. White blood count 11.1, hemoglobin 12.9, hematocrit 40.1, p otassium 3.2, BUN 18, creatinine 0.8, phosphorus 1.4, magnesium 1.7, proBNP 1717. Pertinent ROS: Persistent mental confusion Tachycardia due to atrial fibrillation Complaint of abdominal pain Copious diarrhea Constitutional Vitals: Vital Signs Temp Pulse Resp BP Pulse Ox 98.8 F 139 H 21 132/99 97 06/26/20 08:11 06/26/20 06:01 06/26/20 10:00 06/26/20 10:00 06/26/20 10:00 Period Temp Pulse Resp BP Sys/Weinstein Pulse Ox Last 24 Hr 97.0 F-98.9 F 106-140 18-24 105-187/72-120 92-97 Intake and Output 06/25/20 06/26/20 06/26/20 21:59 05:59 13:59 Intake Total 1510 1330 890 Output Total 815 1890 625 Balance 695 -560 265 Weight 189 lb 3.2 oz Intake & Output: Intake & Output 06/25/20 06/26/20 06/26/20 21:59 05:59 13:59 Intake Total 1510 1330 890 Output Total 815 1890 625 Balance 695 -560 265 Weight 189 lb 3.2 oz Intake: IV 1150 1050 890 Sodium Chloride 0.9% 1,000 ml @ 1000 1000 840 150 mls/hr IV .[id number] [facility] Rx#: [id number] Zosyn 3.375 gm In Dextrose 5% 50 50 50 in Water 50 ml @ 100 mls/hr IV Q6H [facility] Rx#:[id number] Oral 360 280 Output: Urine Catheter Amount 340 1890 625 Void Amount 475 Other: Meal bites Feeding Ability Total Assistance Urine Appearance Clear Clear Clear Uretheral (Saleh) Clear Clear Urine Color Bright Yellow Pale Bright Yellow Dark Yellow Uretheral (Saleh) Bright Yellow Bright Yellow Urine Odor Strong Normal Normal Stool Size Small Small Smear Stool Color Brown Brown Brown Yellow Stool Consistency Liquid Liquid Liquid # Bowel Movements 1 # of times incontinent of 1 1 1 Bowels Head Head exam: Present atraumatic, normal inspection and normocephalic Eye Eye exam: Present EOMI Pupils: Present PERRL Neck Neck exam: Present full ROM; Absent lymphadenopathy, tenderness and thyromegaly Respiratory Respiratory exam: Present normal respiratory exam and CTAB; Absent accessory muscle use, rhonchi and wheezes Cardiovascular Cardiovascular exam: Present irregular rhythm, +S1, +S2 and tachycardia; Absent JVD GI/Abdominal GI/Abdominal exam: Present normal bowel sounds, distended and tenderness (Diffuse abdominal tenderness; active bowel sounds; no mass noted) Extremities Exam Extremities exam: Present full ROM and normal inspection; Absent calf tenderness, pedal edema and tenderness Neurological Exam Additional comments: Patient is poorly oriented and does not follow commands or answer questions Psychiatric Psychiatric exam: Present agitated and anxious Skin Skin exam: Present petechiae and warm; Absent erythema and pallor A/P Assessment and plan (1) Therapeutic opioid-induced constipation (OIC): Status: Acute (2) Rectal bleeding: Status: Acute (3) Type 2 diabetes mellitus: Status: Chronic Comment: Problems with hypoglycemia in the past, now elevated glucose and HgA1c on low dose metformin with HgA1c above goal of 7% Qualifiers: Diabetes mellitus fpc insulin use: without fpc use Diabetes mellitus complication status: with neurologic complications Diabetes mellitus complication detail: with polyneuropathy Qualified Code(s): E11.42 - Type 2 diabetes mellitus with diabetic polyneuropathy (4) Hypertension: Status: Chronic Comment: Goal BP 130/80 using Rx with anti-proteinuric effects Qualifiers: Hypertension type: essential hypertension Qualified Code(s): I10 - Essential (primary) hypertension (5) FDC prescription opiate use: Status: Chronic (6) COPD (chronic obstructive pulmonary disease): Status: Chronic (7) CKD stage G3a/A3, GFR 45-59 and albumin creatinine ratio >300 mg/g: Status: Acute Comment: Could be diabetic nephropathy but the presentation is not classic. Continue RASSI therapy and diltiazem for their anti-proteinuric effects Every 3-month assessment of random urine protein creatinine ratio Change triamterene hydrochlorothiazide to furosemide for edema Narrative A/P Narrative: Replace potassium phosphate and magnesium Discontinue Relistor and MiraLAX Benadryl 50 mg IV every 4 hours as needed for agitation Lovenox 40 mg subcu now and daily Continue Cardizem drip for tachycardia until patient will take p.o. medication Time Spent With Patient Time: Total time spent is greater than 50% in coordination of care (as documented) at patient's floor/unit and/or counseling patient:
[2020-06-26] MEDS ORDERED: POTASSIUM PHOSPHATE 40 MEQ in DEXTROSE 5% IN WATER 500 ML IV ONE ×2 (12:00→17:00)
[2020-06-26] MEDS: diphenhydrAMINE 50 MG/ML VIAL IV PRN ×3 (12:10→20:50)
[2020-06-26] MEDS: ENOXAPARIN 40 MG/0.4 ML SYRINGE SQ SCH (13:09)
[2020-06-26] MEDS: SENNOSIDES 1 TABLET PO SCH ×2 (20:16→20:57)
[2020-06-26] MEDS: ONDANSETRON 4 MG/2 ML VIAL IV PRN (20:59)
[2020-06-26] MEDS: 0.9 % SODIUM CHLORIDE 250 ML IV SCH (22:15)
[2020-06-27] MEDS: INSULIN LISPRO 1 UNIT/0.01 ML UNIT SQ SCH ×5 (00:09→23:28)
[2020-06-27] MEDS: PIPERACILLIN SODIUM/TAZOBACTAM 3.375 GM in DEXTROSE 5% IN WATER 50 ML IV SCH ×5 (00:10→23:28)
[2020-06-27] MEDS: 0.9 % SODIUM CHLORIDE 1,000 ML IV SCH ×3 (01:49→16:46)
[2020-06-27] MEDS: HYDROmorphone 0.5 MG/0.5 ML SYRINGE IV PRN ×8 (01:54→21:25)
[2020-06-27] MEDS: diphenhydrAMINE 50 MG/ML VIAL IV PRN ×6 (01:54→21:25)
[2020-06-27] MEDS: ONDANSETRON 4 MG/2 ML VIAL IV PRN (04:21)
[2020-06-27] MEDS: 0.9 % SODIUM CHLORIDE 10 ML SYRINGE IV SCH ×3 (05:58→21:24)
[2020-06-27] MEDS: PANTOPRAZOLE 40 MG VIAL IV SCH ×2 (06:49→16:51)
[2020-06-27] MEDS: DILTIAZEM 120 MG CAP.XL.24H PO SCH (07:14)
[2020-06-27] MEDS: DOCUSATE SODIUM 100 MG CAPSULE PO SCH ×2 (07:14→21:24)
[2020-06-27] MEDS: DILTIAZEM 180 MG CAP.XL.24H PO SCH (07:14)
[2020-06-27] MEDS: ENOXAPARIN 40 MG/0.4 ML SYRINGE SQ SCH (07:16)
[2020-06-27] MEDS: DILTIAZEM 125 MG in DEXTROSE 5% IN WATER 100 ML IV SCH ×2 (09:33→18:21)
--- NOTE | 2020-06-27 10:29 | XRay Report ---
HISTORY: Follow-up bowel obstruction FINDINGS: There is a large amount of air in normal caliber large and small intestine. The nodular thickening of the wall of the descending colon seen on 06/26/20 is less conspicuous on today's study. However, the descending colon is now decompressed which limits the evaluation. There is no apparent soft tissue mass. There are clips in the gallbladder fossa. Vascular calcifications are present in the abdomen or pelvis. IMPRESSION: Possible colitis of the descending colon and no evidence of bowel obstruction Interpreted and Authenticated by: Calvin Triplett 06/27/20
[2020-06-27] MEDS: 0.9 % SODIUM CHLORIDE 250 ML IV SCH (12:09)
[2020-06-27] MEDS: hydrALAZINE 20 MG/ML VIAL IV PRN (16:58)
[2020-06-27] MEDS ORDERED: LORazepam 2 MG/ML VIAL IV ONE (17:12)
--- NOTE | 2020-06-27 17:27 | General Surgery Progress Note ---
SUBJECTIVE Subjective Patient information: Note initiated : 06/27/20 at 5:19 pm Service Date, if different from initiated Date: [] Patient: Rhea Miles 70 y/o F admitted on 06/24/20 for rectal bleeding. Chief Complaint: [] Principal diagnosis: Fecal impaction; rectal bleeding due to mucosal tear; atrial fibrillation; Interval history: Patient is clinically stable though she still has mental confusion and agitation. She complains of pain with any palpation of her extremities or trunk at any point. Her heart rate is mildly tachycardic but less than 120 unless she is severely agitated. She has been afebrile. She had 6 very small bowel movements but no blood is noted. Her blood pressure and pulse are adequately controlled with the IV Cardizem. She will not take any oral medications. Constitutional Vitals: Vital Signs Temp Pulse Resp BP Pulse Ox 97.6 F 108 H 18 182/104 96 06/27/20 16:01 06/27/20 00:32 06/27/20 17:01 06/27/20 17:01 06/27/20 16:01 Period Temp Pulse Resp BP Sys/Weinstein Pulse Ox Last 24 Hr 97.4 F-98.7 F 90-108 15-22 136-192/70-149 88-100 Intake and Output 06/27/20 06/27/20 06/27/20 05:59 13:59 21:59 Intake Total 977 334 1300 Output Total 550 1985 Balance 423 437 -985 Intake & Output: Intake & Output 06/27/20 06/27/20 06/27/20 05:59 13:59 21:59 Intake Total 276 800 0545 Output Total 550 1985 Balance 423 437 -985 Intake: IV 503 078 6308 Sodium Chloride 0.9% 1,000 ml @ 923 1000 75 mls/hr IV .[id number] [facility] Rx#: [id number] Sodium Chloride 0.9% 250 ml @ 250 20 mls/hr IV .[id number] [facility] Rx#: [id number] Cardizem 125 mg In Dextrose 5% 87 in Water 100 ml @ 5 MG/HR 5 mls /hr IV Q12H [facility] Rx#:[id number] Zosyn 3.375 gm In Dextrose 5% 50 100 in Water 50 ml @ 100 mls/hr IV Q6H [facility] Rx#:[id number] Output: Urine Catheter Amount 550 1625 Void Amount 360 Other: Urine Appearance Clear Clear Uretheral (Saleh) Clear Urine Color Dark Yellow Pale Uretheral (Saleh) Dark Yellow Urine Odor Normal # of times incontinent of 1 Bowels Head Head exam: Present atraumatic, normal inspection and normocephalic Eye Eye exam: Present EOMI Pupils: Present PERRL ENT ENT exam: Present mucous membranes dry and normal exam Neck Neck exam: Present full ROM; Absent lymphadenopathy, tenderness and thyromegaly Respiratory Respiratory exam: Present normal respiratory exam and CTAB; Absent accessory muscle use, rhonchi and wheezes Cardiovascular Cardiovascular exam: Present irregular rhythm, +S1, +S2 and tachycardia; Absent JVD GI/Abdominal GI/Abdominal exam: Present normal bowel sounds, distended and tenderness (Diffuse abdominal tenderness; active bowel sounds; no mass noted) Extremities Exam Extremities exam: Present calf tenderness, full ROM, normal inspection, t enderness (Tenderness of soft tissue of upper and lower extremities) and Foot pink and warm; Absent pedal edema Neurological Exam Additional comments: Disoriented to person place and time; patient does not respond to any questioning and will not follow any commands or directions Psychiatric Psychiatric exam: Present agitated and anxious A/P Assessment and plan (1) Therapeutic opioid-induced constipation (OIC): Status: Acute (2) Type 2 diabetes mellitus: Status: Chronic Comment: Problems with hypoglycemia in the past, now elevated glucose and HgA1c on low dose metformin with HgA1c above goal of 7% Qualifiers: Diabetes mellitus mcc insulin use: without mcc use Diabetes mellitus complication status: with neurologic complications Diabetes mellitus complication detail: with polyneuropathy Qualified Code(s): E11.42 - Type 2 diabetes mellitus with diabetic polyneuropathy (3) Hypertension: Status: Chronic Comment: Goal BP 130/80 using Rx with anti-proteinuric effects Qualifiers: Hypertension type: essential hypertension Qualified Code(s): I10 - Essential (primary) hypertension (4) GERD (gastroesophageal reflux disease): Status: Chronic Qualifiers: Esophagitis presence: esophagitis presence not specified Qualified Code(s): K21.9 - Gastro-esophageal reflux disease without esophagitis (5) Multiple sclerosis: Status: Chronic (6) design 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 Continue RASSI therapy and diltiazem for their anti-proteinuric effects Every 3-month assessment of random urine protein creatinine ratio Change triamterene hydrochlorothiazide to furosemide for edema (8) Chronic pain: Status: Acute Comment: She is being treated with duloxetine Lyrica and hydromorphone. She is asking for Excedrin to be retried okay low-dose 1 tablet p.o. twice daily which seemed to help her muscle pain past Qualifiers: Chronic pain type: chronic pain syndrome Qualified Code(s): G89.4 - Chronic pain syndrome Narrative A/P Narrative: Check CBC, inpatient panel, sedimentation rate Trial of low-dose Ativan on scheduled every 6 hours When patient is more aware we will try to restart Cymbalta and pregabalin When she is minimally alert enough will also get baseline CT of head because of mental changes Time Spent With Patient Time: Total time spent is greater than 50% in coordination of care (as documented) at patient's floor/unit and/or counseling patient:
[2020-06-27 19:21] LABS: Basophils # (Auto) 0.08 K/mcL (0.00-0.20); Eosinophils # (Auto) 0.15 K/mcL (0.00-0.70); Eosinophils % (Auto) 1.9 % (0.0-7.0); Hematocrit 41.5 % (36.0-48.0); Hemoglobin 12.9 g/dL (12.0-15.0); Lymphocytes # (Auto) 1.14 K/mcL (1.50-4.80); Lymphocytes % (Auto) 14.3 % (15.0-49.0); Mean Cell Volume 83.2 fL (80.0-100.0); Mean Corpuscular HGB Conc 31.1 g/dL (31.0-36.0); Monocytes % (Auto) 11.3 % (1.0-12.0); Neutrophils % (Auto) 71.5 % (38.0-78.0); Platelet Count 205 K/mcL (140-440); RBC 4.99 M/mcL (4.00-5.20); Red Cell Distribution Width 15.4 % (11.5-14.5)
[2020-06-27] MEDS ORDERED: DULoxetine 30 MG CAPSULE PO SCH (21:00)
[2020-06-27] MEDS: PREGABALIN 100 MG CAPSULE PO SCH (21:24)
[2020-06-27] MEDS: SENNOSIDES 1 TABLET PO SCH (21:24)
[2020-06-28] MEDS: LORazepam 2 MG/ML VIAL IV PRN ×3 (00:04→16:09)
[2020-06-28] MEDS: 0.9 % SODIUM CHLORIDE 250 ML IV SCH ×3 (00:05→14:36)
[2020-06-28] MEDS: HYDROmorphone 0.5 MG/0.5 ML SYRINGE IV PRN ×7 (00:06→22:31)
[2020-06-28] MEDS: DILTIAZEM 125 MG in DEXTROSE 5% IN WATER 100 ML IV SCH ×4 (00:07→23:19)
[2020-06-28] MEDS: 0.9 % SODIUM CHLORIDE 1,000 ML IV SCH ×4 (01:43→22:13)
[2020-06-28] MEDS ORDERED: DILTIAZEM 125 MG/25 ML VIAL IV ONE ×2 (02:43→23:15)
[2020-06-28] MEDS: diphenhydrAMINE 50 MG/ML VIAL IV PRN ×3 (03:59→18:58)
[2020-06-28] MEDS: PIPERACILLIN SODIUM/TAZOBACTAM 3.375 GM in DEXTROSE 5% IN WATER 50 ML IV SCH ×3 (05:29→17:19)
[2020-06-28] MEDS: INSULIN LISPRO 1 UNIT/0.01 ML UNIT SQ SCH ×3 (06:09→16:15)
[2020-06-28] MEDS: 0.9 % SODIUM CHLORIDE 10 ML SYRINGE IV SCH ×3 (06:10→21:01)
[2020-06-28] MEDS: PANTOPRAZOLE 40 MG VIAL IV SCH ×2 (06:34→16:09)
[2020-06-28 07:01] LABS: Basophils # (Auto) 0.07 K/mcL (0.00-0.20); Eosinophils # (Auto) 0.23 K/mcL (0.00-0.70); Eosinophils % (Auto) 3.1 % (0.0-7.0); Hematocrit 37.4 % (36.0-48.0); Hemoglobin 11.5 g/dL (12.0-15.0); Lymphocytes # (Auto) 1.09 K/mcL (1.50-4.80); Lymphocytes % (Auto) 14.9 % (15.0-49.0); Mean Cell Volume 83.1 fL (80.0-100.0); Mean Corpuscular HGB Conc 30.7 g/dL (31.0-36.0); Mean Platelet Volume 10.4 fL (7.4-10.4); Monocytes # (Auto) 0.93 K/mcL (0.10-0.90); Monocytes % (Auto) 12.7 % (1.0-12.0); Neutrophils % (Auto) 68.3 % (38.0-78.0); Platelet Count 193 K/mcL (140-440); Red Cell Distribution Width 15.4 % (11.5-14.5); WBC 7.3 K/mcL (4.5-11.0)
[2020-06-28 07:12] LABS: ALT/SGPT 10 U/L (<40); AST/SGOT 15 U/L (<32); Albumin 2.8 gm/dL (3.2-5.2); Alkaline Phosphatase 81 U/L (39-117); Bilirubin,Direct < 0.2 mg/dL (0-0.3); Bilirubin,Total 0.3 mg/dL (0.1-1.0); Blood Urea Nitrogen 7 mg/dL (8-23); Calcium 8.7 mg/dL (8.6-10.4); Carbon Dioxide 25 mmol/L (22-30); Chloride 107 mmol/L (96-108); Globulin 2.9 gm/dL (2.2-3.7); Glomerular Filtration Rate 87; Glucose 136 mg/dL (70-105); Lactate Dehydrogenase 257 U/L (135-225); Phosphorous 2.6 mg/dL (2.5-4.5); Triglycerides 119 mg/dL (<150); Uric Acid 2.9 mg/dL (2.5-8.0)
[2020-06-28] MEDS: DILTIAZEM 180 MG CAP.XL.24H PO SCH (07:18)
[2020-06-28] MEDS: PREGABALIN 100 MG CAPSULE PO SCH ×2 (07:19→20:59)
[2020-06-28] MEDS: DOCUSATE SODIUM 100 MG CAPSULE PO SCH ×2 (07:19→21:00)
[2020-06-28] MEDS: DILTIAZEM 120 MG CAP.XL.24H PO SCH (07:19)
[2020-06-28] MEDS: hydrALAZINE 20 MG/ML VIAL IV PRN ×2 (07:20→18:32)
[2020-06-28] MEDS: ENOXAPARIN 40 MG/0.4 ML SYRINGE SQ SCH (07:21)
[2020-06-28] MEDS ORDERED: LORazepam 2 MG/ML VIAL IV ONE (15:49)
--- NOTE | 2020-06-28 15:59 | General Surgery Progress Note ---
SUBJECTIVE Subjective Patient information: Note initiated : 06/28/20 at 3:50 pm Service Date, if different from initiated Date: [] Patient: Rhea Miles 70 y/o F admitted on 06/24/20 for rectal bleeding. Chief Complaint: [] Principal diagnosis: Fecal impaction; rectal bleeding due to mucosal tear; atrial fibrillation; Interval history: Patient is stable with regards to her fecal impaction and rectal bleeding. Her atrial fibrillation with fast ventricular response is better controlled with Cardizem drip. She remains mentally unstable and will not cooperate with care. Will make plans for sedation for CT of the head felicia orrow. I have discussed her with the hospitalist and he will also consult on her tomorrow. Sed rate 27, potassium 3.2, BUN 7, creatinine 0.7, white blood count 7.3, hemoglobin 11.5, hematocrit 37.4. Constitutional Vitals: Vital Signs Temp Pulse Resp BP Pulse Ox 98.2 F 116 H 19 160/90 94 06/28/20 14:01 06/28/20 10:31 06/28/20 14:01 06/28/20 14:01 06/28/20 14:01 Period Temp Pulse Resp BP Sys/Weinstein Pulse Ox Last 24 Hr 97.2 F-99.4 F 109-120 12-25 134-203/76-111 88-100 Intake and Output 06/28/20 06/28/20 06/28/20 05:59 13:59 21:59 Intake Total 414 1100 375 Output Total 375 944 Balance 39 156 375 Intake & Output: Intake & Output 06/28/20 06/28/20 06/28/20 05:59 13:59 21:59 Intake Total 414 1100 375 Output Total 375 944 Balance 39 156 375 Intake: IV 414 1100 375 Sodium Chloride 0.9% 1,000 ml @ 1000 75 mls/hr IV .[id number] [facility] Rx#: [id number] Sodium Chloride 0.9% 250 ml @ 239 250 20 mls/hr IV .[id number] [facility] Rx#: [id number] Cardizem 125 mg In Dextrose 5% 125 125 in Water 100 ml @ 5 MG/HR 5 mls /hr IV Q12H [facility] Rx#:[id number] Zosyn 3.375 gm In Dextrose 5% 50 100 in Water 50 ml @ 100 mls/hr IV Q6H [facility] Rx#:[id number] Output: Urine Catheter Amount 200 944 Void Amount 175 Other: Urine Appearance Clear Clear Uretheral (Saleh) Clear Clear Urine Color Dark Yellow Dark Yellow Uretheral (Saleh) Dark Yellow Dark Yellow Urine Odor Normal Uretheral (Saleh) Normal Stool Size Small Small Stool Color Yellow Brown Stool Consistency Liquid Liquid # of times incontinent of 1 Bowels Head Head exam: Present atraumatic, normal inspection and normocephalic Eye Eye exam: Present EOMI Pupils: Present PERRL ENT ENT exam: Present mucous membranes dry and normal exam Neck Neck exam: Present full ROM; Absent lymphadenopathy, tenderness and thyromegaly Respiratory Respiratory exam: Present normal respiratory exam and CTAB; Absent accessory muscle use, rhonchi and wheezes Cardiovascular Cardiovascular exam: Present irregular rhythm, +S1, +S2 and tachycardia; Absent JVD GI/Abdominal GI/Abdominal exam: Present normal bowel sounds, distended and tenderness (Diffuse abdominal tenderness; active bowel sounds; no mass noted) Extremities Exam Extremities exam: Present calf tenderness, full ROM, normal inspection, tenderness (Tenderness of soft tissue of upper and lower extremities) and Foot pink and warm; Absent pedal edema Neurological Exam Additional comments: Disoriented to person place and time; patient does not respond to any questioning and will not follow any commands or directions Psychiatric Psychiatric exam: Present agitated and anxious Skin Skin exam: Present petechiae and warm; Absent erythema and pallor A/P Assessment and plan (1) Therapeutic opioid-induced constipation (OIC): Status: Acute (2) Type 2 diabetes mellitus: Status: Chronic Comment: Problems with hypoglycemia in the past, now elevated glucose and HgA1c on low dose metformin with HgA1c above goal of 7% Qualifiers: Diabetes mellitus intermediate designer insulin use: without intermediate designer use Diabetes mellitus complication status: with neurologic complications Diabetes mellitus complication detail: with polyneuropathy Qualified Code(s): E11.42 - Type 2 diabetes mellitus with diabetic polyneuropathy (3) Hypertension: Status: Chronic Comment: Goal BP 130/80 using Rx with anti-proteinuric effects Qualifiers: Hypertension type: essential hypertension Qualified Code(s): I10 - Essential (primary) hypertension (4) Situational depression: Status: Chronic (5) skilled nursing prescription opiate use: Status: Chronic (6) COPD (chronic obstructive pulmonary disease): Status: Chronic (7) Acute on chronic alteration in mental status: Status: Acute Narrative A/P Narrative: Patient was still not take oral liquids or medications We will sedate and get CT of head with contrast tomorrow Consult with hospitalist for his evaluation of her mental status Time Spent With Patient Time: Total time spent is greater than 50% in coordination of care (as documented) at patient's floor/unit and/or counseling patient:
--- NOTE | 2020-06-28 18:16 | Internal Medicine Consult Note ---
HPI Data of Consult Primary Care Provider: Miya Crocker Consult Narrative cc:: CC: Cindy Templeton MD This patient was admitted on for rectal bleed secondary to fecal impaction. That has been treated and she is had multiple bowel movements improvement. During course her A. fib went into RVR and was put on a Cardizem drip. And mentally she has not responded with poor mentation. Per nurse she appeared to be with appropriate mental status on nurse intake but has since had poor mentation. And does not appear to be safe to take oral medications and so she has not been getting the oral medications. At bedside when I try to interact with patient she seems to say only "oh yeah, oh yeah", but nothing else. Review of Systems: Unable to gather review of systems given poor mentation PFSH PFSH All Active Problems (Updated 06/28/20 @ 15:57 by Cindy Templeton MD) Acute on chronic alteration in mental status (Acute) Therapeutic opioid-induced constipation (OIC) (Acute) Rectal bleeding (Acute) Urinary incontinence (Chronic) Disequilibrium (Chronic) Aphthae, oral (Chronic) Night cramp (Chronic) Actinic keratosis (Chronic) Perioral dermatitis (Chronic) Type 2 diabetes mellitus (Chronic) Hypertension (Chronic) Hyperlipidemia (Chronic) Intrinsic asthma, unspecified (Chronic) GERD (gastroesophageal reflux disease) (Chronic) Multiple sclerosis (Chronic) Urinary retention (Chronic) Situational depression (Chronic) 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 (Chronic) 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) Low back pain (Chronic) Lumbar spinal stenosis (Chronic) Knee pain (Chronic) Hallux valgus with bunions (Chronic) Dermatitis (Chronic) COPD (chronic obstructive pulmonary disease) (Chronic) Proteinuria (Chronic) Encounter for monitoring chronic NSAID therapy (Chronic) At risk for polypharmacy (Chronic) Colitis (Acute) Edema (Acute) CKD stage G3a/A3, GFR 45-59 and albumin creatinine ratio >300 mg/g (Acute) Overactive bladder (Acute) Chronic pain (Acute) Acute GI bleeding (Acute) Acidosis, lactic (Acute) Leukocytosis, unspecified (Acute) Medical History (Updated 06/28/20 @ 15:57 by Cindy Templeton MD) Actinic keratosis Aphthae, oral At risk for polypharmacy Just use 1 SSRI (wean of prozac) and continue duloxetine for neuropathy/chronic pain and anxiety-depression Try just Diltiazem in place of ACEi, BB & CCB for Rate control, anti- proteinuric effect and BP control. Use spironolactone starting with a low dose to avoid elevated K and stop Dyazide. COPD (chronic obstructive pulmonary disease) Dermatitis Perioral Disequilibrium Encounter for monitoring chronic NSAID therapy Chronic Excedrin Migraine use daily for years Nonnephrotic range proteinuria, hypertension, normal GFR Now starting Advil qHS to avoid Excedrine qHS due to caffeine GERD (gastroesophageal reflux disease) Hallux valgus with bunions Hyperlipidemia Hypertension Goal BP 130/80 using Rx with anti-proteinuric effects Intrinsic asthma, unspecified Knee pain jail prescription opiate use Low back pain Lumbar spinal stenosis Multiple sclerosis Night cramp Perioral dermatitis Proteinuria Low grade but steadily worsening. Could be DM, HTN or NSAID related. Start by breaking up the RAASI/NSAIDs potential interaction ny using diltiazem in place of High Dose Lisinopril Situational depression Sweating Type 2 diabetes mellitus Problems with hypoglycemia in the past, now elevated glucose and HgA1c on low dose metformin with HgA1c above goal of 7% Urinary incontinence Urinary retention Surgical History History of bilateral oophorectomy History of cataract surgery (~2017) History of cholecystectomy History of hysterectomy History of tonsillectomy and adenoidectomy Family History Family/Other Hypertension Multiple family members with hypertension Stroke Aunt Grandmother Myocardial infarction Stroke Grandfather Stroke Mother Hypertension Social History marital status: occupational status: disabled smoking status start date: 02/13/1964 smoking status stop date: 02/13/16 alcohol intake frequency: does not drink substance use type: does not use MEDS/ALLERGIES Home Medications and Allergies Home Medications Medication Instructions Recorded Confirmed Type omeprazole 20 mg capsule,delayed 20 mg PO QDAY 02/07/19 06/25/20 History release duloxetine 60 mg capsule,delayed 60 mg PO QHS 02/18/19 06/25/20 History release sprinkle diltiazem HCl 300 mg 300 mg PO QDAY 09/19/19 06/25/20 History capsule,extended release 24 hr lisinopril 40 mg tablet 40 mg PO QDAY 09/19/19 06/25/20 History metformin 500 mg tablet,extended 500 mg PO BID tab 11/12/19 06/25/20 History release 24 hr Digestive Advantage 1 tab PO QDAY 02/11/20 06/25/20 History amantadine HCl 100 mg capsule 100 mg PO BID 02/11/20 06/25/20 History apixaban 5 mg tablet 5 mg PO BID tab 05/10/20 06/25/20 History furosemide 20 mg tablet 20 mg PO BID #60 tab 05/10/20 06/25/20 Rx hydromorphone 2 mg tablet 2 mg PO Q4H PRN tab 05/10/20 06/25/20 History potassium chloride 10 mEq 10 meq PO QDAY 05/10/20 06/25/20 History tablet,extended release pregabalin 200 mg capsule 200 mg PO BID cap 05/10/20 06/25/20 History mirabegron 50 mg tablet,extended 25 mg PO QDAY #30 tab 05/13/20 06/25/20 Rx release 24 hr Vitamin D3 1 tab PO QPM 06/24/20 06/25/20 History albuterol sulfate 2 puff INHALATION Q4 PRN 06/25/20 06/25/20 History Allergies Allergy/AdvReac Type Severity Reaction Status Date / Time amitriptyline Allergy Unknown Unknown Verified 06/25/20 06:34 gabapentin Allergy Unknown Unknown Verified 06/25/20 06:34 codeine [CODEINE] AdvReac Mild Itching Verified 06/25/20 06:34 influenza virus vaccine ts AdvReac Mild Vomiting Verified 06/25/20 06:34 [id number] (36 mos,up) [From Fluarix] EXAM Constitutional Vitals: Temp Pulse Resp BP Pulse Ox 98.7 F 116 H 22 165/87 98 06/28/20 16:01 06/28/20 10:31 06/28/20 18:00 06/28/20 17:01 06/28/20 17:01 Exam: General: drowsy, No acute Distress Eyes/N/T: PERRL, Head/Neck: neck supple, normocephalic atraumatic CV: irreg irreg, tachy, No murmurs, normal s1/s2 Pulm: Clear b/l, no wheezing/rhonchi/rales Abd: soft, nontender, +BS x4 Ext: no clubbing/cyanosis/edema Neuro: Drowsy, awakens to voice but does not answer questions, simply says "oh yeah oh yeah", she responds to touch in all extremities pupils are reactive Skin: warm/dry DATA Data Completed and Pending Labs: Labs from last 24 hours 06/28/20 06/28/20 06/28/20 05:21 05:21 05:14 WBC 7.3 RBC 4.50 Hgb 11.5 L Hct 37.4 MCV 83.1 MCH 25.6 L MCHC 30.7 L RDW 15.4 H Plt Count 193 MPV 10.4 Neut % (Auto) 68.3 Lymph % (Auto) 14.9 L Sumner % (Auto) 12.7 H Eos % (Auto) 3.1 Baso % (Auto) 1.0 Lymph # (Auto) 1.09 L Sumner # (Auto) 0.93 H Eos # (Auto) 0.23 Baso # (Auto) 0.07 Absolute Neutrophils 5.02 ESR 27 H Sodium 142 Potassium 3.2 L Chloride 107 Carbon Dioxide 25 Anion Gap 10.0 BUN 7 L Creatinine 0.7 GFR Calculation 87 Glucose 136 H Uric Acid 2.9 Calcium 8.7 Phosphorus 2.6 Magnesium 1.7 Total Bilirubin 0.3 Direct Bilirubin < 0.2 GGT 22 AST 15 ALT 10 Alkaline Phosphatase 81 Lactate Dehydrogenase 257 H Total Protein 5.7 L Albumin 2.8 L Globulin 2.9 Albumin/Globulin Ratio 1.0 Triglycerides 119 06/27/20 18:50 WBC 8.0 RBC 4.99 Hgb 12.9 Hct 41.5 MCV 83.2 MCH 25.9 L MCHC 31.1 RDW 15.4 H Plt Count 205 MPV 11.0 H Neut % (Auto) 71.5 Lymph % (Auto) 14.3 L Sumner % (Auto) 11.3 Eos % (Auto) 1.9 Baso % (Auto) 1.0 Lymph # (Auto) 1.14 L Sumner # (Auto) 0.90 Eos # (Auto) 0.15 Baso # (Auto) 0.08 Absolute Neutrophils 5.68 ESR Sodium Potassium Chloride Carbon Dioxide Anion Gap BUN Creatinine GFR Calculation Glucose Uric Acid Calcium Phosphorus Magnesium Total Bilirubin Direct Bilirubin GGT AST ALT Alkaline Phosphatase Lactate Dehydrogenase Total Protein Albumin Globulin Albumin/Globulin Ratio Triglycerides Preliminary micro results at discharge 06/24/20 23:58 Blood Culture - Preliminary Blood 06/24/20 23:46 Blood Culture - Preliminary Blood A/P Narrative A/P Narrative: A: *Encephalopathy: ?medications w/d vs other *A. fib RVR: *Rectal bleed from fecal impaction: improved *COPD(): *Depression: *Chronic opioid use: *DM: *GERD: *hypokalemia: P: -pending CT brain -check ABG, ammonia -restarting home pysch meds via NGT if necessary for intake -cont home dilt, wean dilt gtt -IVF's per surg -cont home psych meds -SSI -lasix held for now -electrolyte replacement -home ppi -ppx: per surgery (lovenox) Time Spent With Patient Time: Total time spent is greater than 50% in coordination of care (as documented) at patient's floor/unit and/or counseling patient:
[2020-06-28] MEDS: SENNOSIDES 1 TABLET PO SCH ×2 (21:00→21:46)
[2020-06-28] MEDS: ONDANSETRON 4 MG/2 ML VIAL IV PRN (21:06)
[2020-06-28] MEDS: DULoxetine 30 MG CAPSULE PT SCH (21:42)
[2020-06-28] MEDS: DILTIAZEM 30 MG TABLET PT SCH (21:42)
[2020-06-28] MEDS ORDERED: hydrALAZINE 20 MG/ML VIAL ONE (23:59)
[2020-06-29] MEDS: hydrALAZINE 20 MG/ML VIAL IV PRN
[2020-06-29] MEDS: PIPERACILLIN SODIUM/TAZOBACTAM 3.375 GM in DEXTROSE 5% IN WATER 50 ML IV SCH ×4 (00:09→17:24)
[2020-06-29] MEDS: INSULIN LISPRO 1 UNIT/0.01 ML UNIT SQ SCH ×4 (00:20→18:16)
[2020-06-29] MEDS: HYDROmorphone 0.5 MG/0.5 ML SYRINGE IV PRN ×7 (00:27→22:20)
[2020-06-29] MEDS: LORazepam 2 MG/ML VIAL IV PRN ×3 (00:28→20:53)
[2020-06-29] MEDS: 0.9 % SODIUM CHLORIDE 250 ML IV SCH ×2 (03:38→12:26)
[2020-06-29] MEDS: 0.9 % SODIUM CHLORIDE 1,000 ML IV SCH ×3 (03:41→19:46)
[2020-06-29] MEDS: diphenhydrAMINE 50 MG/ML VIAL IV PRN ×2 (03:47→18:25)
--- NOTE | 2020-06-29 03:55 | XRay Report ---
CLINICAL INFORMATION: NG placement COMPARISON: 06/27/2020 FINDINGS: NG tube overlies the proximal gastric body. Stool gas pattern is unremarkable. No free air, pathologic calcification or soft tissue mass. IMPRESSION: NG tube overlying the proximal gastric body. Consider advancing the NG tube 10 cm. Interpreted and Authenticated by: Kushal Draper 06/29/20
[2020-06-29] MEDS: METOPROLOL TARTRATE 5 MG/5 ML VIAL IV PRN ×3 (04:28→21:31)
[2020-06-29] MEDS: DILTIAZEM 30 MG TABLET PT SCH ×3 (05:15→17:24)
[2020-06-29] MEDS: 0.9 % SODIUM CHLORIDE 10 ML SYRINGE IV SCH ×3 (05:52→21:26)
[2020-06-29 06:45] LABS: Basophils # (Auto) 0.07 K/mcL (0.00-0.20); Basophils % (Auto) 0.6 % (0.0-2.0); Eosinophils % (Auto) 0.8 % (0.0-7.0); Hematocrit 36.4 % (36.0-48.0); Hemoglobin 11.1 g/dL (12.0-15.0); Lymphocytes # (Auto) 0.92 K/mcL (1.50-4.80); Lymphocytes % (Auto) 7.7 % (15.0-49.0); Mean Cell Volume 83.3 fL (80.0-100.0); Mean Corpuscular HGB Conc 30.5 g/dL (31.0-36.0); Monocytes # (Auto) 1.55 K/mcL (0.10-0.90); Neutrophils % (Auto) 77.9 % (38.0-78.0); Platelet Count 219 K/mcL (140-440); RBC 4.37 M/mcL (4.00-5.20); Red Cell Distribution Width 15.6 % (11.5-14.5); WBC 11.9 K/mcL (4.5-11.0)
[2020-06-29] MEDS: PANTOPRAZOLE 40 MG VIAL IV SCH ×2 (06:59→17:24)
--- NOTE | 2020-06-29 07:20 | Internal Med Progress Note ---
SUBJECTIVE Subjective Patient information: Note initiated : 06/29/20 at 7:18 am Service Date, if different from initiated Date: [] Patient: Rhea Miles 70 y/o F admitted on 06/24/20 for rectal bleeding. Chief Complaint: [] Principal diagnosis: Fecal impaction; rectal bleeding due to mucosal tear; atrial fibrillation; Interval history: This patient was admitted on for rectal bleed secondary to fecal impaction. That has been treated and she is had multiple bowel movements improvement. During course her A. fib went into RVR and was put on a Cardizem drip. And mentally she has not responded with poor mentation. Per nurse she appeared to be with appropriate mental status on nurse intake but has since had poor me ntation. And does not appear to be safe to take oral medications and so she has not been getting the oral medications. At bedside when I try to interact with patient she seems to say only "oh yeah, oh yeah", but nothing else. 06/29 Patient is back from CT. She did get some Ativan prior to the procedure. She seem to answer yes and no to a few of my questions and I thought that she moved the toe to command wants but that I could not get her to repeat a follow other commands. She did open her eyes to sternal rub not to voice. Constitutional Vitals: Vital Signs Temp Pulse Resp BP Pulse Ox 98.6 F 117 H 21 153/85 95 06/29/20 04:01 06/29/20 00:45 06/29/20 06:45 06/29/20 06:01 06/29/20 06:45 Period Temp Pulse Resp BP Sys/Weinstein Pulse Ox Last 24 Hr 98.2 F-99.4 F 92-117 12-52 132-170/63-102 94-100 Intake and Output 06/28/20 06/29/20 06/29/20 21:59 05:59 13:59 Intake Total 425 1431 50 Output Total 450 125 Balance -25 1306 50 Weight 83.28 kg Intake & Output: Intake & Output 06/28/20 06/29/20 06/29/20 21:59 05:59 13:59 Intake Total 425 1431 50 Output Total 450 125 Balance -25 1306 50 Weight 83.28 kg Intake: IV 425 1431 50 Sodium Chloride 0.9% 1,000 ml @ 1000 75 mls/hr IV .[id number] [facility] Rx#: [id number] Sodium Chloride 0.9% 250 ml @ 250 250 20 mls/hr IV .[id number] [facility] Rx#: [id number] Cardizem 125 mg In Dextrose 5% 125 131 in Water 100 ml @ 5 MG/HR 5 mls /hr IV Q12H [facility] Rx#:[id number] Zosyn 3.375 gm In Dextrose 5% 50 50 50 in Water 50 ml @ 100 mls/hr IV Q6H [facility] Rx#:[id number] Output: Urine Catheter Amount 450 125 Other: Urine Appearance Clear Uretheral (Saleh) Clear Clear Urine Color Dark Yellow Uretheral (Saleh) Dark Yellow Dark Yellow Exam: General: drowsy, No acute Distress Eyes/N/T: PERRL, Head/Neck: neck supple, CV: irreg irreg, tachy, No murmurs, Pulm: Clear b/l, no wheezing/rhonchi/rales Abd: soft, nontender, +BS x4 Ext: no clubbing/cyanosis/edema Neuro: Drowsy, answered a few yes/no questions but otherwise not opening eyes to voice only to sternal rub and unable to get her to follow commands Skin: warm/dry OBJ DATA Labs CBC & Chem 7: 06/29/20 05:15 06/29/20 05:15 Labs: Abnormal Lab Results 06/29/20 06/28/20 06/28/20 05:15 05:21 05:21 WBC 11.9 H Hgb 11.1 L MCH 25.4 L MCHC 30.5 L RDW 15.6 H MPV 11.0 H Lymph % (Auto) 7.7 L Cannon % (Auto) 13.0 H Lymph # (Auto) 0.92 L Cannon # (Auto) 1.55 H Band Neutrophils % Lymphocytes % Absolute Neutrophils 9.29 H RBC Morphology Anisocytosis ESR 27 H Potassium 3.2 L Carbon Dioxide BUN 7 L Glucose 136 H Phosphorus Lactate Dehydrogenase 257 H NT-Pro-B Natriuret Pep Total Protein 5.7 L Albumin 2.8 L 06/28/20 06/27/20 06/26/20 05:14 18:50 07:25 WBC Hgb 11.5 L MCH 25.6 L 25.9 L MCHC 30.7 L RDW 15.4 H 15.4 H MPV 11.0 H Lymph % (Auto) 14.9 L 14.3 L Cannon % (Auto) 12.7 H Lymph # (Auto) 1.09 L 1.14 L Cannon # (Auto) 0.93 H Band Neutrophils % Lymphocytes % Absolute Neutrophils RBC Morphology Anisocytosis ESR Potassium 3.2 L Carbon Dioxide 21 L BUN Glucose 204 H Phosphorus 1.4 L Lactate Dehydrogenase 249 H NT-Pro-B Natriuret Pep 1717.0 H Total Protein Albumin 3.0 L 06/26/20 07:25 WBC 11.1 H Hgb MCH 25.7 L MCHC RDW 15.5 H MPV 11.1 H Lymph % (Auto) Cannon % (Auto) Lymph # (Auto) Cannon # (Auto) Band Neutrophils % 17 H Lymphocytes % 9 L Absolute Neutrophils RBC Morphology Abnormal A Anisocytosis 1+ A ESR Potassium Carbon Dioxide BUN Glucose Phosphorus Lactate Dehydrogenase NT-Pro-B Natriuret Pep Total Protein Albumin Meds: Medications Dextrose (Dextrose 50% 50 Ml Vial) 0 ml IV UD PRN PRN Reason: Hypoglycemia Diagnostic Test (Pha) (Accu-Chek 1 Each Strip) 1 each FS Q6 [facility]; Protocol Last Admin: 06/29/20 05:51 Dose: 1 each Documented by: Diltiazem HCl (Diltiazem 30 Mg Tablet) 75 mg PT Q6H PENDING SALE TO [facility] Last Admin: 06/29/20 05:15 Dose: 75 mg Documented by: Diphenhydramine HCl (Diphenhydramine 50 Mg/Ml Vial) 50 mg IV Q4HP PRN PRN Reason: Allergic Symptoms Last Admin: 06/29/20 03:47 Dose: 50 mg Documented by: Docusate Sodium (Docusate Sodium 100 Mg Capsule) 100 mg PO BID PENDING SALE TO [facility] Last Admin: 06/28/20 21:00 Dose: Not Given Documented by: Duloxetine HCl (Duloxetine 30 Mg Capsule) 60 mg PT HS PENDING SALE TO [facility] Last Admin: 06/28/20 21:42 Dose: 60 mg Documented by: Enoxaparin Sodium (Enoxaparin 40 Mg/0.4 Ml Syringe) 40 mg SQ DAILY PENDING SALE TO [facility] Last Admin: 06/28/20 07:21 Dose: 40 mg Documented by: Glucose (Dextrose 31 Gm Oral.Susp) 15 gm PO PRN PRN PRN Reason: Hypoglycemia Hydralazine HCl (Hydralazine 20 Mg/Ml Vial) 0 mg IV Q4HP PRN PRN Reason: Hypertension Last Admin: 06/29/20 00:00 Dose: 10 mg Documented by: Hydromorphone HCl (Hydromorphone 0.5 Mg/0.5 Ml Syringe) 0.5 mg IV Q2HP PRN; Protocol PRN Reason: Per Pain Protocol Last Admin: 06/29/20 03:47 Dose: 0.5 mg Documented by: Sodium Chloride (Sodium Chloride 0.9%) 1,000 mls @ 75 mls/hr IV .[id number] [facility] Last Admin: 06/29/20 03:41 Dose: Not Given Documented by: Diltiazem HCl 125 mg/ Dextrose 125 mls @ 5 mls/hr IV Q12H [facility]; Protocol Last Titration: 06/28/20 23:54 Dose: 5 mg/hr, 5 mls/hr Documented by: Sodium Chloride (Sodium Chloride 0.9%) 250 mls @ 20 mls/hr IV .[id number] [facility] Last Admin: 06/29/20 03:38 Dose: 20 mls/hr Documented by: Piperacillin Sod/Tazobactam (Sod 3.375 gm/ Dextrose) 50 mls @ 100 mls/hr IV Q6H [facility]; Protocol Last Infusion: 06/29/20 06:42 Dose: Infused Documented by: Insulin Human Lispro (Insulin Lispro 1 Unit/0.01 Ml Unit) 0 unit SQ Q6 [facility]; Protocol Last Admin: 06/29/20 05:51 Dose: 2 units Documented by: Lorazepam (Lorazepam 2 Mg/Ml Vial) 0.5 mg IV Q6HP PRN PRN Reason: ANXIETY/SEDATION Last Admin: 06/29/20 00:28 Dose: 0.5 mg Documented by: Lorazepam (Lorazepam 2 Mg/Ml Vial) 1 mg IV ONCE ONE Stop: 06/29/20 07:31 Metoprolol Tartrate (Metoprolol Tartrate 5 Mg/5 Ml Vial) 5 mg IV Q2HP PRN PRN Reason: Tachyarrhythmias, HR > 110 bpm Last Admin: 06/29/20 04:28 Dose: 5 mg Documented by: Morphine Sulfate (Morphine 2 Mg/Ml Vial) 2 mg IV Q5MIN PRN; Protocol PRN Reason: abd pain Ondansetron HCl (Ondansetron 4 Mg/2 Ml Vial) 4 mg IV Q6HP PRN PRN Reason: Nausea And Vomiting Last Admin: 06/28/20 21:06 Dose: 4 mg Documented by: Pantoprazole Sodium (Pantoprazole 40 Mg Vial) 40 mg IV BIDAC PENDING SALE TO [facility] Last Admin: 06/29/20 06:59 Dose: 40 mg Documented by: Pregabalin (Pregabalin 100 Mg Capsule) 200 mg PO BID PENDING SALE TO [facility] Last Admin: 06/28/20 20:59 Dose: Not Given Documented by: Senna (Sennosides 1 Tablet) 2 tab PO HS PENDING SALE TO [facility] Last Admin: 06/28/20 21:46 Dose: 2 tab Documented by: Sodium Chloride (0.9 % Sodium Chloride 10 Ml Syringe) 10 ml IV Q8 PENDING SALE TO [facility] Last Admin: 06/29/20 05:52 Dose: Not Given Documented by: A/P Narrative A/P Narrative: A: *Encephalopathy: ?medications w/d vs other -abg no co retention *A. fib RVR: *Rectal bleed from fecal impaction: improved *COPD(): *Depression: *Chronic opioid use: *DM: *GERD: *hypokalemia: P: -pending CT brain -restarting home pysch meds via NGT if necessary for intake -cont home dilt, wean dilt gtt -IVF's per surg -cont home psych meds -SSI -lasix held for now -electrolyte replacement -home ppi -ppx: per surgery (lovenox) Time Spent With Patient Time: Total time spent is greater than 50% in coordination of care (as documented) at patient's floor/unit and/or counseling patient: QUALITY Stroke Symptom Onset Unknown: No VTE Deep Vein Thrombosis/Pulmonary Embolism Present on Admission: No
[2020-06-29] MEDS ORDERED: LORazepam 2 MG/ML VIAL IV ONE (07:30)
[2020-06-29 07:41] LABS: ALT/SGPT 11 U/L (<40); AST/SGOT 11 U/L (<32); Albumin/Globulin Ratio 1.2 (1.0-2.3); Alkaline Phosphatase 75 U/L (39-117); Bilirubin,Direct < 0.2 mg/dL (0-0.3); Bilirubin,Total 0.2 mg/dL (0.1-1.0); Blood Urea Nitrogen 9 mg/dL (8-23); Carbon Dioxide 25 mmol/L (22-30); Chloride 105 mmol/L (96-108); Globulin 2.6 gm/dL (2.2-3.7); Glomerular Filtration Rate 87; Glucose 157 mg/dL (70-105); Lactate Dehydrogenase 208 U/L (135-225); Phosphorous 3.1 mg/dL (2.5-4.5); Triglycerides 107 mg/dL (<150)
[2020-06-29] MEDS ORDERED: POTASSIUM CHLORIDE 80 MEQ in DEXTROSE 5% IN WATER 1,000 ML IV ONE (08:02)
[2020-06-29] MEDS ORDERED: MAGNESIUM SULFATE 4 GM/100 ML BAG IV ONE (08:04)
[2020-06-29] MEDS ORDERED: IOPAMIDOL 100 ML BOTTLE IV ONE (08:50)
[2020-06-29] MEDS: DOCUSATE SODIUM 100 MG CAPSULE PO SCH ×2 (09:03→20:19)
[2020-06-29] MEDS: ENOXAPARIN 40 MG/0.4 ML SYRINGE SQ SCH (10:23)
[2020-06-29] MEDS: PREGABALIN 100 MG CAPSULE PO SCH ×3 (11:46→20:35)
[2020-06-29] MEDS: DILTIAZEM 125 MG in DEXTROSE 5% IN WATER 100 ML IV SCH (12:24)
--- NOTE | 2020-06-29 13:09 | Cat Scan Report ---
CLINICAL INFORMATION: Acute mental status change COMPARISON: None TECHNIQUE: Prior to and after the injection of 50 cc of Isovue-370, 2.5 mm helical slices were obtained from the skull base through the vertex. Following reconstruction, 2.5 mm axial reformatted images were reviewed at bone and parenchymal windows.The exam was performed using radiation dose optimization techniques including, but not limited to, automated exposure control, adjustment of the mA and/or kV according to patient size and use of iterative reconstruction technique. FINDINGS: The ventricles, sulci, fissures and cisterns are symmetrically enlarged compatible with mild age-related atrophy. There is no subdural hemorrhage or other axial fluid collection or mass appreciated. Moderate patchy chronic ischemic changes, in the deep cerebral white matter, are expected for age. 6 mm remote lacunar infarct in the left caudate nucleus head. A 5 mm remote lacunar infarct in the right caudate nucleus head appreciated. There are a few punctate remote lacunar infarcts seen in the left external capsule. There is no intracerebral hemorrhage, abnormal enhancement, edema or mass effect. Bone windows show no osseous abnormality. IMPRESSION: Mild atrophy and chronic ischemic changes in the deep cerebral white matter. Remote lacunar infarcts in the head of both caudate nuclei. There is no intracerebral hemorrhage or other acute finding Interpreted and Authenticated by: Kushal Draper 06/29/20
[2020-06-29 13:56] LABS: Prolactin 6.6 ng/mL (4.8-23.3); Thyroid Stimulating Hormone 0.7 uIU/mL (0.27-5.01)
--- NOTE | 2020-06-29 14:40 | General Surgery Progress Note ---
SUBJECTIVE Subjective Patient information: Note initiated : 06/29/20 at 2:36 pm Service Date, if different from initiated Date: [] Patient: Rhea Miles 70 y/o F admitted on 06/24/20 for rectal bleeding. Chief Complaint: [] Principal diagnosis: Fecal impaction; rectal bleeding due to mucosal tear; atrial fibrillation; Interval history: Patient is doing well medically however her mental status is unchanged. She still will not communicate intelligibly. Potassium 2.8, BUN 9, creatinine 0.7, white blood count 11.9, hemoglobin 11, hematocrit 36.4. CT of the brain does not show any acute changes. The hospitalist has ordered an MRI which she will get shortly. He is also started giving her home medications by NG tube. Constitutional Vitals: Vital Signs Temp Pulse Resp BP Pulse Ox 97.1 F 117 H 26 H 142/83 91 06/29/20 12:02 06/29/20 00:45 06/29/20 14:02 06/29/20 14:02 06/29/20 14:02 Period Temp Pulse Resp BP Sys/Weinstein Pulse Ox Last 24 Hr 97.1 F-99.2 F 92-117 15-52 132-176/63-104 87-100 Intake and Output 06/29/20 06/29/20 06/29/20 05:59 13:59 21:59 Intake Total 1431 152 100 Output Total 125 116 Balance 1306 36 100 Intake & Output: Intake & Output 06/29/20 06/29/20 06/29/20 05:59 13:59 21:59 Intake Total 1431 152 100 Output Total 125 116 Balance 1306 36 100 Intake: IV 1431 152 100 Sodium Chloride 0.9% 1,000 ml @ 1000 75 mls/hr IV .[id number] [facility] Rx#: [id number] Sodium Chloride 0.9% 250 ml @ 250 20 mls/hr IV .[id number] [facility] Rx#: [id number] Cardizem 125 mg In Dextrose 5% 131 52 in Water 100 ml @ 5 MG/HR 5 mls /hr IV Q12H [facility] Rx#:[id number] Zosyn 3.375 gm In Dextrose 5% 50 100 in Water 50 ml @ 100 mls/hr IV Q6H [facility] Rx#:[id number] Output: Urine Catheter Amount 125 116 Other: Urine Appearance Clear Uretheral (Saleh) Clear Urine Color Dark Yellow Uretheral (Saleh) Dark Yellow Head Head exam: Present atraumatic, normal inspection and normocephalic Eye Eye exam: Present EOMI Pupils: Present PERRL ENT ENT exam: Present mucous membranes dry and normal exam Neck Neck exam: Present full ROM; Absent lymphadenopathy, tenderness and thyromegaly Respiratory Respiratory exam: Present normal respiratory exam and CTAB; Absent accessory muscle use, rhonchi and wheezes Cardiovascular Cardiovascular exam: Present irregular rhythm, +S1, +S2 and tachycardia; Absent JVD GI/Abdominal GI/Abdominal exam: Present normal bowel sounds, distended and tenderness (Diffuse abdominal tenderness; active bowel sounds; no mass noted) Extremities Exam Extremities exam: Present calf tenderness, full ROM, normal inspection, tenderness (Tenderness of soft tissue of upper and lower extremities) and Foot pink and warm; Absent pedal edema Neurological Exam Additional comments: Disoriented to person place and time; patient does not respond to any questioning and will not follow any commands or directions Psychiatric Psychiatric exam: Present agitated and anxious Skin Skin exam: Present petechiae and warm; Absent erythema and pallor A/P Assessment and plan (1) Acute on chronic alteration in mental status: Status: Acute (2) Therapeutic opioid-induced constipation (OIC): Status: Acute (3) Type 2 diabetes mellitus: Status: Chronic Comment: Problems with hypoglycemia in the past, now elevated glucose and HgA1c on low dose metformin with HgA1c above goal of 7% Qualifiers: 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: without laborer marine terminal use Diabetes mellitus complication status: with neurologic complications Diabetes mellitus complication detail: with polyneuropathy Qualified Code(s): E11.42 - Type 2 diabetes mellitus with diabetic polyneuropathy (4) Hypertension: Status: Chronic Comment: Goal BP 130/80 using Rx with anti-proteinuric effects Qualifiers: Hypertension type: essential hypertension Qualified Code(s): I10 - Essential (primary) hypertension (5) GERD (gastroesophageal reflux disease): Status: Chronic Qualifiers: Esophagitis presence: esophagitis presence not specified Qualified Code(s): K21.9 - Gastro-esophageal reflux disease without esophagitis (6) Situational depression: Status: Chronic (7) CKD stage G3a/A3, GFR 45-59 and albumin creatinine ratio >300 mg/g: Status: Acute Comment: Could be diabetic nephropathy but the presentation is not classic. Continue RASSI therapy and diltiazem for their anti-proteinuric effects Every 3-month assessment of random urine protein creatinine ratio Change triamterene hydrochlorothiazide to furosemide for edema Narrative A/P Narrative: Check abdominal x-rays in the morning We will follow up with MRI of head later today Time Spent With Patient Time: Total time spent is greater than 50% in coordination of care (as documented) at patient's floor/unit and/or counseling patient:
[2020-06-29 15:14] LABS: Eosinophils % (Manual) 2 % (0-7); Lymphocytes % 6 % (15-49); Monocytes % (Manual) 13 % (1-12); Platelet Estimate NORMAL (Normal); RBC Morphology NORMAL (Normal); Segmented Neutrophils % 79 % (38-78)
--- NOTE | 2020-06-29 15:51 | Magnetic Resonance Report ---
CLINICAL INFORMATION: Clinically mental status. COMPARISON: Head CT 06/29/2020 TECHNIQUE:Sagittal T1 FLAIR, axial T1 FLAIR, T2 FLAIR propeller, T2 propeller, gradient, diffusion, ADC and coronal T2 weighted images were acquired. FINDINGS: The ventricles, sulci, fissures and cisterns are symmetrically enlarged patible with mild atrophy-no extra-axial fluid collection or mass appreciated. Moderate chronic ischemic changes throughout the cerebral white matter are slightly more than typically seen for a. Vague patchy chronic ischemia central kat also appreciated. Small remote lacunar infarcts in the caudate nucleus head appreciated. Are no regions of restricted diffusion to suggest acute infarct. No hemorrhage mass effect or other acute finding. IMPRESSION: Mild atrophy with moderate chronic ischemic changes in the cerebral white matter. Small remote lacunar infarcts in head of the caudate nucleus. There is no restricted diffusion correlating with a acute infarct or other acute process Interpreted and Authenticated by: Kushal Draper 06/29/20
[2020-06-29] MEDS ORDERED: FUROSEMIDE 40 MG/4 ML VIAL IV ONE (19:29)
[2020-06-29] MEDS ORDERED: POTASSIUM CHLORIDE 20 MEQ/15 ML ML PT ONE (19:31)
[2020-06-29] MEDS: ONDANSETRON 4 MG/2 ML VIAL IV PRN (20:23)
[2020-06-29] MEDS: MELATONIN 3 MG TABLET PO SCH (20:34)
[2020-06-29] MEDS: SENNOSIDES 1 TABLET PO SCH (20:34)
[2020-06-29] MEDS: DULoxetine 30 MG CAPSULE PT SCH (20:35)
[2020-06-29] MEDS ORDERED: diphenhydrAMINE 25 MG CAPSULE PT ONE (21:00)
[2020-06-30] MEDS: diphenhydrAMINE 50 MG/ML VIAL IV PRN (00:21)
[2020-06-30] MEDS: HYDROmorphone 0.5 MG/0.5 ML SYRINGE IV PRN ×7 (00:23→22:17)
[2020-06-30] MEDS: METOPROLOL TARTRATE 5 MG/5 ML VIAL IV PRN ×5 (00:34→23:09)
[2020-06-30] MEDS: hydrALAZINE 20 MG/ML VIAL IV PRN ×2 (00:43→05:09)
[2020-06-30] MEDS: INSULIN LISPRO 1 UNIT/0.01 ML UNIT SQ SCH ×5 (00:52→23:51)
[2020-06-30] MEDS: PIPERACILLIN SODIUM/TAZOBACTAM 3.375 GM in DEXTROSE 5% IN WATER 50 ML IV SCH ×5 (00:55→23:52)
[2020-06-30] MEDS: DILTIAZEM 30 MG TABLET PT SCH ×5 (00:58→23:51)
--- NOTE | 2020-06-30 03:46 | XRay Report ---
CLINICAL INFORMATION: new NG placement COMPARISON: 06/28/2020 1950 hours FINDINGS: NG tube overlies the proximal gastric body. Stomach, small and large bowel are minimally dilated compatible with mild ileus. No soft tissue mass or free air. IMPRESSION: Mild ileus. NG tube overlies proximal gastric body Interpreted and Authenticated by: Kushal Draper 06/30/20
--- NOTE | 2020-06-30 03:53 | XRay Report ---
CLINICAL INFORMATION: new NG placement COMPARISON: 06/29/2020 FINDINGS: NG tube is now in the distal gastric antrum. Stomach, small and large bowel show mild symmetric dilatation consistent with mild ileus. No free air. IMPRESSION: NG in satisfactory position tip overlying the gastric antrum. Mild ileus Interpreted and Authenticated by: Kushal Draper 06/30/20
[2020-06-30] MEDS: LORazepam 2 MG/ML VIAL IV PRN (04:18)
[2020-06-30] MEDS: 0.9 % SODIUM CHLORIDE 10 ML SYRINGE IV SCH ×4 (05:22→21:54)
[2020-06-30 06:55] LABS: Hematocrit 36.1 % (36.0-48.0); Hemoglobin 11.2 g/dL (12.0-15.0); Mean Cell Volume 81.9 fL (80.0-100.0); Mean Platelet Volume 10.8 fL (7.4-10.4); Platelet Count 206 K/mcL (140-440); RBC 4.41 M/mcL (4.00-5.20); Red Cell Distribution Width 15.2 % (11.5-14.5); WBC 12.7 K/mcL (4.5-11.0)
[2020-06-30] MEDS: PANTOPRAZOLE 40 MG VIAL IV SCH ×2 (07:29→16:12)
--- NOTE | 2020-06-30 07:48 | Internal Med Progress Note ---
SUBJECTIVE Subjective Patient information: Note initiated : 06/30/20 at 7:36 am Service Date, if different from initiated Date: [] Patient: Rhea Miles 70 y/o F admitted on 06/24/20 for rectal bleeding. Chief Complaint: [] Principal diagnosis: Fecal impaction; rectal bleeding due to mucosal tear; atrial fibrillation; Interval history: This patient was admitted on for rectal bleed secondary to fecal impaction. That has been treated and she is had multiple bowel movements improvement. During course her A. fib went into RVR and was put on a Cardizem drip. And mentally she has not responded with poor mentation. Per nurse she appeared to be with appropriate mental status on nurse intake but has since had poor me ntation. And does not appear to be safe to take oral medications and so she has not been getting the oral medications. At bedside when I try to interact with patient she seems to say only "oh yeah, oh yeah", but nothing else. 06/29 Patient is back from CT. She did get some Ativan prior to the procedure. She seem to answer yes and no to a few of my questions and I thought that she moved the toe to command wants but that I could not get her to repeat a follow other commands. She did open her eyes to sternal rub not to voice. 06/30 No real change in mentation. MRI unremarkable yesterday. Scheduled for LP this morning. He seems to have moments of clarity and then will go back to confusi on. Review of systems not able to entirely obtain although she seems to answers few yes/no questions. Constitutional Vitals: Vital Signs Temp Pulse Resp BP Pulse Ox 98.1 F 105 H 21 137/83 95 06/30/20 04:01 06/30/20 07:01 06/30/20 07:19 06/30/20 07:01 06/30/20 07:29 Period Temp Pulse Resp BP Sys/Weinstein Pulse Ox Last 24 Hr 97.1 F-99.2 F 101-135 16-33 118-188/66-111 87-96 Intake and Output 06/29/20 06/30/20 06/30/20 21:59 05:59 13:59 Intake Total 2190 50 50 Output Total 880 1825 Balance 1310 -1775 50 Weight 82.282 kg Intake & Output: Intake & Output 06/29/20 06/30/20 06/30/20 21:59 05:59 13:59 Intake Total 2190 50 50 Output Total 880 1825 Balance 1310 -1775 50 Weight 82.282 kg Intake: IV 2190 50 50 Sodium Chloride 0.9% 1,000 ml @ 1000 75 mls/hr IV .[id number] [facility] Rx#: [id number] Sodium Chloride 0.9% 250 ml @ 0 20 mls/hr IV .[id number] [facility] Rx#: [id number] Cardizem 125 mg In Dextrose 5% 0 in Water 100 ml @ 5 MG/HR 5 mls /hr IV Q12H [facility] Rx#:[id number] Zosyn 3.375 gm In Dextrose 5% 50 50 50 in Water 50 ml @ 100 mls/hr IV Q6H [facility] Rx#:[id number] Potassium Chloride 80 Meq In 1040 Dextrose 5% in Water 1,000 ml @ 130 mls/hr IV ONCE ONE Rx#: [id number] Output: Urine Catheter Amount 880 375 Void Amount 1450 Other: Urine Appearance Clear Clear Uretheral (Saleh) Clear Urine Color Dark Yellow Straw Uretheral (Saleh) Dark Yellow Stool Size Small Moderate Stool Color Yellow Yellow Stool Consistency Liquid # of times incontinent of 1 1 Bowels Exam: General: drowsy, No acute Distress Eyes/N/T: PERRL, Head/Neck: neck supple, CV: irreg irreg, tachy, No murmurs, Pulm: Clear b/l, no wheezing/rhonchi/rales Abd: soft, nontender, +BS x4 Ext: no clubbing/cyanosis/edema Neuro: Drowsy, but she opened her eyes and looked at me when i called her name as i walked into the room, she seemed to answer a few yes/no questions. She moved her toes at command but a few minutes later would not follow commands. She seems to have moments of clarity and then returns to current baseline state Skin: warm/dry OBJ DATA Labs CBC & Chem 7: 06/30/20 05:20 06/30/20 05:20 Labs: Abnormal Lab Results 06/30/20 06/29/20 06/29/20 05:20 05:15 05:15 WBC 12.7 H 11.9 H Hgb 11.2 L 11.1 L MCH 25.4 L 25.4 L MCHC 30.5 L RDW 15.2 H 15.6 H MPV 10.8 H 11.0 H Lymph % (Auto) 7.7 L Jennings % (Auto) 13.0 H Lymph # (Auto) 0.92 L Jennings # (Auto) 1.55 H Seg Neutrophils % 79 H Lymphocytes % 6 L Monocytes % (Manual) 13 H Absolute Neutrophils 9.29 H ESR Potassium BUN Glucose Lactate Dehydrogenase Total Protein Albumin 06/29/20 06/28/20 06/28/20 05:15 05:21 05:21 WBC Hgb MCH MCHC RDW MPV Lymph % (Auto) Jennings % (Auto) Lymph # (Auto) Jennings # (Auto) Seg Neutrophils % Lymphocytes % Monocytes % (Manual) Absolute Neutrophils ESR 27 H Potassium 2.8 L* 3.2 L BUN 7 L Glucose 157 H 136 H Lactate Dehydrogenase 257 H Total Protein 5.6 L 5.7 L Albumin 3.0 L 2.8 L 06/28/20 06/27/20 05:14 18:50 WBC Hgb 11.5 L MCH 25.6 L 25.9 L MCHC 30.7 L RDW 15.4 H 15.4 H MPV 11.0 H Lymph % (Auto) 14.9 L 14.3 L Jennings % (Auto) 12.7 H Lymph # (Auto) 1.09 L 1.14 L Jennings # (Auto) 0.93 H Seg Neutrophils % Lymphocytes % Monocytes % (Manual) Absolute Neutrophils ESR Potassium BUN Glucose Lactate Dehydrogenase Total Protein Albumin Meds: Medications Dextrose (Dextrose 50% 50 Ml Vial) 0 ml IV UD PRN PRN Reason: Hypoglycemia Diagnostic Test (Pha) (Accu-Chek 1 Each Strip) 1 each FS Q6 [facility]; Protocol Last Admin: 06/30/20 05:30 Dose: 1 each Documented by: Diltiazem HCl (Diltiazem 30 Mg Tablet) 75 mg PT Q6H [facility] Last Admin: 06/30/20 05:21 Dose: 75 mg Documented by: Diphenhydramine HCl (Diphenhydramine 50 Mg/Ml Vial) 50 mg IV Q4HP PRN PRN Reason: Allergic Symptoms Last Admin: 06/30/20 00:21 Dose: 50 mg Documented by: Docusate Sodium (Docusate Sodium 100 Mg Capsule) 100 mg PO BID [facility] Last Admin: 06/29/20 20:19 Dose: Not Given Documented by: Duloxetine HCl (Duloxetine 30 Mg Capsule) 60 mg PT HS [facility] Last Admin: 06/29/20 20:35 Dose: 60 mg Documented by: Enoxaparin Sodium (Enoxaparin 40 Mg/0.4 Ml Syringe) 40 mg SQ DAILY [facility] Last Admin: 06/29/20 10:23 Dose: 40 mg Documented by: Glucose (Dextrose 31 Gm Oral.Susp) 15 gm PO PRN PRN PRN Reason: Hypoglycemia Hydralazine HCl (Hydralazine 20 Mg/Ml Vial) 0 mg IV Q4HP PRN PRN Reason: Hypertension Last Admin: 06/30/20 05:09 Dose: 10 mg Documented by: Hydromorphone HCl (Hydromorphone 0.5 Mg/0.5 Ml Syringe) 0.5 mg IV Q2HP PRN; Protocol PRN Reason: Per Pain Protocol Last Admin: 06/30/20 04:19 Dose: 0.5 mg Documented by: Sodium Chloride (Sodium Chloride 0.9%) 1,000 mls @ 75 mls/hr IV .[id number] [facility] Last Admin: 06/29/20 19:46 Dose: 75 mls/hr Documented by: Piperacillin Sod/Tazobactam (Sod 3.375 gm/ Dextrose) 50 mls @ 100 mls/hr IV Q6H [facility]; Protocol Last Infusion: 06/30/20 06:30 Dose: Infused Documented by: Insulin Human Lispro (Insulin Lispro 1 Unit/0.01 Ml Unit) 0 unit SQ Q6 [facility]; Protocol Last Admin: 06/30/20 05:37 Dose: 2 units Documented by: Lorazepam (Lorazepam 2 Mg/Ml Vial) 0.5 mg IV Q6HP PRN PRN Reason: ANXIETY/SEDATION Last Admin: 06/30/20 04:18 Dose: 0.5 mg Documented by: Melatonin (Melatonin 3 Mg Tablet) 6 mg PO QHS [facility] Last Admin: 06/29/20 20:34 Dose: 6 mg Documented by: Metoprolol Tartrate (Metoprolol Tartrate 5 Mg/5 Ml Vial) 5 mg IV Q2HP PRN PRN Reason: Tachyarrhythmias, HR > 110 bpm Last Admin: 06/30/20 05:09 Dose: 5 mg Documented by: Morphine Sulfate (Morphine 2 Mg/Ml Vial) 2 mg IV Q5MIN PRN; Protocol PRN Reason: abd pain Ondansetron HCl (Ondansetron 4 Mg/2 Ml Vial) 4 mg IV Q6HP PRN PRN Reason: Nausea And Vomiting Last Admin: 06/29/20 20:23 Dose: 4 mg Documented by: Pantoprazole Sodium (Pantoprazole 40 Mg Vial) 40 mg IV BIDAC [facility] Last Admin: 06/30/20 07:29 Dose: 40 mg Documented by: Pregabalin (Pregabalin 100 Mg Capsule) 200 mg PO BID [facility] Last Admin: 06/29/20 20:35 Dose: 200 mg Documented by: Senna (Sennosides 1 Tablet) 2 tab PO HS [facility] Last Admin: 06/29/20 20:34 Dose: 2 tab Documented by: Sodium Chloride (0.9 % Sodium Chloride 10 Ml Syringe) 10 ml IV Q8 [facility] Last Admin: 06/30/20 05:30 Dose: 10 ml Documented by: A/P Narrative A/P Narrative: A: *Encephalopathy: unknown etiology at this point, earlier considerations were medications + sleep pattern deprivation + acute illness + 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 She did get ativan for some rads testing over the past several days. -abg no co retention -CT/MRI no acute, old infarcts *A. fib RVR: improving *Rectal bleed from fecal impaction: improved *COPD(): *Depression: *Chronic opioid use: *DM: *GERD: *hypokalemia: improved P: -pending LP -hold sedating meds -empiric keppra today -restarted home pysch meds via NGT -cont home dilt, off dilt gtt -IVF's per surg -cont home psych meds -SSI -lasix prn -electrolyte replacement prn -home ppi -ppx: per surgery (lovenox) Time Spent With Patient Time: Total time spent is greater than 50% in coordination of care (as documented) at patient's floor/unit and/or counseling patient: QUALITY Stroke Symptom Onset Unknown: No VTE Deep Vein Thrombosis/Pulmonary Embolism Present on Admission: No
[2020-06-30 08:10] LABS: ALT/SGPT 11 U/L (<40); AST/SGOT 12 U/L (<32); Albumin 2.9 gm/dL (3.2-5.2); Alkaline Phosphatase 81 U/L (39-117); Bilirubin,Direct < 0.2 mg/dL (0-0.3); Bilirubin,Total 0.2 mg/dL (0.1-1.0); Blood Urea Nitrogen 9 mg/dL (8-23); Calcium 8.8 mg/dL (8.6-10.4); Carbon Dioxide 30 mmol/L (22-30); Chloride 99 mmol/L (96-108); Globulin 2.9 gm/dL (2.2-3.7); Glomerular Filtration Rate 87; Glucose 140 mg/dL (70-105); Lactate Dehydrogenase 207 U/L (135-225); Phosphorous 2.8 mg/dL (2.5-4.5); Triglycerides 111 mg/dL (<150); Uric Acid 2.3 mg/dL (2.5-8.0)
[2020-06-30 08:42] LABS: Anisocytosis 1+ (None Seen); Eosinophils % (Manual) 2 % (0-7); Lymphocytes % 14 % (15-49); Monocytes % (Manual) 6 % (1-12); Platelet Estimate NORMAL (Normal); RBC Morphology ABNORMAL (Normal); Reactive Lymphocytes 2 % (0-2); Segmented Neutrophils % 76 % (38-78)
[2020-06-30] MEDS: ENOXAPARIN 40 MG/0.4 ML SYRINGE SQ SCH (09:16)
[2020-06-30] MEDS: PREGABALIN 100 MG CAPSULE PO SCH ×2 (09:28→21:36)
[2020-06-30] MEDS ORDERED: levETIRAcetam 1,500 MG in 0.9 % SODIUM CHLORIDE 100 ML IV ONE (10:41)
[2020-06-30] MEDS: 0.9 % SODIUM CHLORIDE 1,000 ML IV SCH ×2 (10:59→17:53)
[2020-06-30] MEDS: DOCUSATE SODIUM 100 MG CAPSULE PO SCH (10:59)
[2020-06-30] MEDS: POTASSIUM CHLORIDE 20 MEQ/15 ML ML PT SCH ×2 (11:19→16:14)
--- NOTE | 2020-06-30 13:05 | General Surgery Progress Note ---
SUBJECTIVE Subjective Patient information: Note initiated : 06/30/20 at 1:01 pm Service Date, if different from initiated Date: [] Patient: Rhea Miles 70 y/o F admitted on 06/24/20 for rectal bleeding. Chief Complaint: [] Principal diagnosis: Fecal impaction; rectal bleeding due to mucosal tear; atrial fibrillation; Interval history: Patient is doing well except for altered mental status. She is not alert enough to take an oral feedings or medications. She is receiving medications by NG tube. Abdominal x-ray shows diffuse ileus but with. Colon gas extending to the rectum she is having intermittent small liquid bowel movements. Brain CT and MRI did not reveal any acute changes on yesterday. She will be scheduled for lumbar puncture and CSF fluid evaluation as soon as we can get permission from the family to do the procedure. Constitutional Vitals: Vital Signs Temp Pulse Resp BP Pulse Ox 98.4 F 105 H 18 133/72 100 06/30/20 12:01 06/30/20 07:01 06/30/20 12:53 06/30/20 12:01 06/30/20 12:53 Period Temp Pulse Resp BP Sys/Weinstein Pulse Ox Last 24 Hr 97.9 F-98.5 F 101-135 16-33 118-188/66-111 86-100 Intake and Output 06/29/20 06/30/20 06/30/20 21:59 05:59 13:59 Intake Total 2190 50 1215 Output Total 880 1825 Balance 1310 -1775 1215 Weight 181 lb 6.4 oz 181 lb 6.4 oz Patient Weight 07/01/20 05:59 Weight 181 lb 6.4 oz Intake & Output: Intake & Output 06/29/20 06/30/20 06/30/20 21:59 05:59 13:59 Intake Total 2190 50 1215 Output Total 880 1825 Balance 1310 -1775 1215 Weight 181 lb 6.4 oz 181 lb 6.4 oz Intake: IV 2190 50 1215 Sodium Chloride 0.9% 1,000 ml @ 1000 1000 75 mls/hr IV .[id number] [facility] Rx#: [id number] Sodium Chloride 0.9% 250 ml @ 0 20 mls/hr IV .[id number] [facility] Rx#: [id number] Cardizem 125 mg In Dextrose 5% 0 in Water 100 ml @ 5 MG/HR 5 mls /hr IV Q12H [facility] Rx#:[id number] Zosyn 3.375 gm In Dextrose 5% 50 50 100 in Water 50 ml @ 100 mls/hr IV Q6H [facility] Rx#:[id number] Potassium Chloride 80 Meq In 1040 Dextrose 5% in Water 1,000 ml @ 130 mls/hr IV ONCE ONE Rx#: [id number] Keppra 1,500 mg In Sodium 115 Chloride 0.9% 100 ml @ 200 mls/ hr IV ONCE ONE Rx#:[id number] Output: Urine Catheter Amount 880 375 Void Amount 1450 Other: Urine Appearance Clear Clear Uretheral (Saleh) Clear Urine Color Dark Yellow Straw Uretheral (Saleh) Dark Yellow Stool Size Small Moderate Stool Color Yellow Yellow Stool Consistency Liquid # of times incontinent of 1 1 Bowels Head Head exam: Present atraumatic, normal inspection and normocephalic Eye Eye exam: Present EOMI Pupils: Present PERRL ENT ENT exam: Present mucous membranes dry and normal exam Neck Neck exam: Present full ROM; Absent lymphadenopathy, tenderness and thyromegaly Respiratory Respiratory exam: Present normal respiratory exam and CTAB; Absent accessory muscle use, rhonchi and wheezes Cardiovascular Cardiovascular exam: Present irregular rhythm, +S1, +S2 and tachycardia; Absent JVD GI/Abdominal GI/Abdominal exam: Present normal bowel sounds, distended and tenderness (Diffuse abdominal tenderness; active bowel sounds; no mass noted) Extremities Exam Extremities exam: Present calf tenderness, full ROM, normal inspection, tenderness (Tenderness of soft tissue of upper and lower extremities) and Foot pink and warm; Absent pedal edema Neurological Exam Additional comments: Disoriented to person place and time; patient does not respond to any questioning and will not follow any commands or directions Psychiatric Psychiatric exam: Present agitated and anxious Skin Skin exam: Present petechiae and warm; Absent erythema and pallor A/P Assessment and plan (1) Acute on chronic alteration in mental status: Status: Acute (2) Therapeutic opioid-induced constipation (OIC): Status: Acute (3) Type 2 diabetes mellitus: Status: Chronic Comment: Problems with hypoglycemia in the past, now elevated glucose and HgA1c on low dose metformin with HgA1c above goal of 7% Qualifiers: Diabetes mellitus care home insulin use: without manager intermediate use Diabetes mellitus complication status: with neurologic complications Diabetes mellitus complication detail: with polyneuropathy Qualified Code(s): E11.42 - Type 2 diabetes mellitus with diabetic polyneuropathy (4) Hypertension: Status: Chronic Comment: Goal BP 130/80 using Rx with anti-proteinuric effects Qualifiers: Hypertension type: essential hypertension Qualified Code(s): I10 - Essential (primary) hypertension (5) GERD (gastroesophageal reflux disease): Status: Chronic Qualifiers: Esophagitis presence: esophagitis presence not specified Qualified Code(s): K21.9 - Gastro-esophageal reflux disease without esophagitis (6) Situational depression: Status: Chronic (7) CKD stage G3a/A3, GFR 45-59 and albumin creatinine ratio >300 mg/g: Status: Acute Comment: Could be diabetic nephropathy but the presentation is not classic. Continue RASSI therapy and diltiazem for their anti-proteinuric effects Every 3-month assessment of random urine protein creatinine ratio Change triamterene hydrochlorothiazide to furosemide for edema Narrative A/P Narrative: Start Reglan 10 mg IV every 6 hours Follow-up abdominal x-rays in the morning Lumbar puncture for CSF sampling as soon as permission has been obtained If ileus is improved will be able to start tube feedings tomorrow or shortly thereafter Time Spent With Patient Time: Total time spent is greater than 50% in coordination of care (as documented) at patient's floor/unit and/or counseling patient:
[2020-06-30] MEDS ORDERED: LORazepam 2 MG/ML VIAL IV ONE (14:01)
[2020-06-30 17:02] LABS: Glucose,CSF 96 mg/dL (40-70)
[2020-06-30] MEDS ORDERED: VANCOMYCIN PER PHARMACY IV SCH (17:25)
--- NOTE | 2020-06-30 17:52 | XRay Report ---
CLINICAL INFORMATION: Decreased mental status. COMPARISON: None. TECHNIQUE: The procedure and risks including the possibility of bleeding, infection, CSF leak requiring blood patch were explained to the patient. They understood and wished to proceed. Under fluoroscopic guidance, the left L2-3 intralaminar space was marked, prepped and locally anesthetized with 1% Lidocaine using a 25 gauge needle. A 22 gauge spinal needle was placed under fluoroscopy through the intralaminar space into the thecal sac. Refracture 23 cm water Approximately 16 cc of clear CSF was aspirated and sent to pathology for requested studies. There was no apparent complication. The patient tolerated procedure well. IMPRESSION: Successful fluoroscopic guided lumbar puncture. Opening pressure 23 cm water. 18 cc of clear CSF was aspirated and sent to the lab for requested studies. No apparent complications. Interpreted and Authenticated by: Kushal Draper 06/30/20
[2020-06-30] MEDS: METOCLOPRAMIDE 10 MG/2 ML VIAL IV SCH ×2 (17:58→23:52)
[2020-06-30] MEDS ORDERED: VANCOMYCIN 1,000 MG in 0.9 % SODIUM CHLORIDE 250 ML IV ONE (18:00)
[2020-06-30] MEDS ORDERED: ALBUMIN HUMAN 12.5 GM/50 ML BAG IV ONE (19:33)
[2020-06-30] MEDS ORDERED: FUROSEMIDE 40 MG/4 ML VIAL IV ONE (19:33)
[2020-06-30] MEDS: AMANTADINE HCL 100 MG CAPSULE PO SCH (19:38)
[2020-06-30] MEDS: NACL 0.9% W/KCL 20MEQ 1,000 ML IV SCH (20:05)
[2020-06-30] MEDS: DULoxetine 30 MG CAPSULE PT SCH (21:36)
[2020-06-30] MEDS: MELATONIN 3 MG TABLET PO SCH (21:36)
[2020-06-30] MEDS: DOCUSATE SODIUM 50 MG/5 ML ORAL.SOL PT SCH (21:52)
[2020-06-30] MEDS: SENNOSIDES 1 TABLET PO SCH (21:54)
[2020-06-30] MEDS: ONDANSETRON 4 MG/2 ML VIAL IV PRN (22:17)
[2020-06-30] MEDS ORDERED: levETIRAcetam 2,000 MG in 0.9 % SODIUM CHLORIDE 100 ML IV ONE (23:00)
[2020-07-01] MEDS: HYDROmorphone 0.5 MG/0.5 ML SYRINGE IV PRN ×4 (01:25→22:14)
[2020-07-01] MEDS: DILTIAZEM 30 MG TABLET PT SCH ×4 (05:56→23:33)
[2020-07-01] MEDS: METOCLOPRAMIDE 10 MG/2 ML VIAL IV SCH ×3 (05:57→21:02)
[2020-07-01] MEDS: PIPERACILLIN SODIUM/TAZOBACTAM 3.375 GM in DEXTROSE 5% IN WATER 50 ML IV SCH ×2 (05:57→13:47)
[2020-07-01] MEDS: INSULIN LISPRO 1 UNIT/0.01 ML UNIT SQ SCH ×4 (05:57→23:28)
[2020-07-01] MEDS: 0.9 % SODIUM CHLORIDE 10 ML SYRINGE IV SCH ×4 (05:57→21:41)
[2020-07-01] MEDS: hydrALAZINE 20 MG/ML VIAL IV PRN ×2 (06:13→11:11)
--- NOTE | 2020-07-01 07:28 | Internal Med Progress Note ---
SUBJECTIVE Subjective Patient information: Note initiated : 07/01/20 at 7:26 am Service Date, if different from initiated Date: [] Patient: Rhea Miles 70 y/o F admitted on 06/24/20 for rectal bleeding. Chief Complaint: [] Principal diagnosis: Fecal impaction; rectal bleeding due to mucosal tear; atrial fibrillation; Interval history: This patient was admitted on for rectal bleed secondary to fecal impaction. That has been treated and she is had multiple bowel movements improvement. During course her A. fib went into RVR and was put on a Cardizem drip. And mentally she has not responded with poor mentation. Per nurse she appeared to be with appropriate mental status on nurse intake but has since had poor me ntation. And does not appear to be safe to take oral medications and so she has not been getting the oral medications. At bedside when I try to interact with patient she seems to say only "oh yeah, oh yeah", but nothing else. 06/29 Patient is back from CT. She did get some Ativan prior to the procedure. She seem to answer yes and no to a few of my questions and I thought that she moved the toe to command wants but that I could not get her to repeat a follow other commands. She did open her eyes to sternal rub not to voice. 06/30 No real change in mentation. MRI unremarkable yesterday. Scheduled for LP this morning. He seems to have moments of clarity and then will go back to confusi on. *per nurse she was a little more interactive this evening with her primary care pediatrician but when i returned to see her at bedside she was back at her usual mental state. Empiric keppra loading dose given this morning. I discussed the case with [place] neurologist Dr. Jean. Relayed the CSF/Imaging/lab findings/etc... He recommended another loading dose of Keppra 2grams tonight and then 1000 bid. amantadine w/d could also be part of it. This was started tonight. 07/01 Patient a little more responsive today. Seem to move feet to command and answer a few simple questions as to where she was out in order full name is. Started amantadine last night. And also continued Keppra per recommendations from neurologist. Still questionable unable to get an accurate review of systems. Constitutional Vitals: Vital Signs Temp Pulse Resp BP Pulse Ox 97.9 F 108 H 17 158/91 96 07/01/20 04:01 06/30/20 20:59 07/01/20 06:01 07/01/20 06:01 07/01/20 06:01 Period Temp Pulse Resp BP Sys/Weinstein Pulse Ox Last 24 Hr 97.4 F-98.4 F 108 16-33 132-169/72-104 86-100 Intake and Output 06/30/20 07/01/20 07/01/20 21:59 05:59 13:59 Intake Total 1344 260 90 Output Total 550 2400 Balance 794 -2140 90 Weight 83.007 kg Intake & Output: Intake & Output 06/30/20 07/01/20 07/01/20 21:59 05:59 13:59 Intake Total 1344 260 90 Output Total 550 2400 Balance 794 -2140 90 Weight 83.007 kg Intake: IV 1034 170 Sodium Chloride 0.9% 1,000 ml @ 684 75 mls/hr IV .[id number] [facility] Rx#: [id number] Zosyn 3.375 gm In Dextrose 5% 50 50 in Water 50 ml @ 100 mls/hr IV Q6H [facility] Rx#:[id number] Vancomycin 1,000 mg In Sodium 250 Chloride 0.9% 250 ml @ 250 mls/ hr IV ONCE ONE Rx#:[id number] Keppra 2,000 mg In Sodium 120 Chloride 0.9% 100 ml @ 200 mls/ hr IV ONCE ONE Rx#:[id number] Tube Feeding 0 0 0 GI Tube Flush 310 90 90 Output: Urine Catheter Amount 550 2400 Other: Urine Appearance Clear Urine Color Straw Stool Size Small Stool Color Brown Stool Consistency Loose # of times incontinent of 2 1 Bowels Exam: General: drowsy, No acute Distress Eyes/N/T: PERRL, Head/Neck: neck supple, CV: irreg irreg, tachy, No murmurs, Pulm: Clear b/l, no wheezing/rhonchi/rales Abd: soft, nontender, +BS x4 Ext: no clubbing/cyanosis/edema Neuro: Drowsy but over arousable keeps eyes closed but will partially open to voice. She did move her feet to command. She knew where she was at and gave me her full name. Mentation still depressed but improved from yesterday, spontaneous moves all extremities Skin: warm/dry OBJ DATA Labs CBC & Chem 7: 06/30/20 05:20 07/01/20 05:55 Labs: Abnormal Lab Results 06/30/20 06/30/20 06/30/20 15:40 05:20 05:20 WBC 12.7 H Hgb 11.2 L MCH 25.4 L MCHC RDW 15.2 H MPV 10.8 H Lymph % (Auto) [place] % (Auto) Lymph # (Auto) [place] # (Auto) Seg Neutrophils % Lymphocytes % 14 L Monocytes % (Manual) Absolute Neutrophils RBC Morphology Abnormal A Anisocytosis 1+ A ESR Potassium 3.2 L Glucose 140 H Uric Acid 2.3 L Total Protein 5.8 L Albumin 2.9 L CSF Glucose 96 H CSF Total Protein 73.0 H 06/29/20 06/29/20 06/29/20 05:15 05:15 05:15 WBC 11.9 H Hgb 11.1 L MCH 25.4 L MCHC 30.5 L RDW 15.6 H MPV 11.0 H Lymph % (Auto) 7.7 L [place] % (Auto) 13.0 H Lymph # (Auto) 0.92 L [place] # (Auto) 1.55 H Seg Neutrophils % 79 H Lymphocytes % 6 L Monocytes % (Manual) 13 H Absolute Neutrophils 9.29 H RBC Morphology Anisocytosis ESR Potassium 2.8 L* Glucose 157 H Uric Acid Total Protein 5.6 L Albumin 3.0 L CSF Glucose CSF Total Protein 06/28/20 05:21 WBC Hgb MCH MCHC RDW MPV Lymph % (Auto) [place] % (Auto) Lymph # (Auto) [place] # (Auto) Seg Neutrophils % Lymphocytes % Monocytes % (Manual) Absolute Neutrophils RBC Morphology Anisocytosis ESR 27 H Potassium Glucose Uric Acid Total Protein Albumin CSF Glucose CSF Total Protein Meds: Medications Amantadine HCl (Amantadine Hcl 100 Mg Capsule) 100 mg PO BID [facility] Last Admin: 06/30/20 19:38 Dose: 100 mg Documented by: Dextrose (Dextrose 50% 50 Ml Vial) 0 ml IV UD PRN PRN Reason: Hypoglycemia Diagnostic Test (Pha) (Accu-Chek 1 Each Strip) 1 each FS Q6 [facility]; Protocol Last Admin: 07/01/20 05:56 Dose: 1 each Documented by: Diltiazem HCl (Diltiazem 30 Mg Tablet) 75 mg PT Q6H [facility] Last Admin: 07/01/20 05:56 Dose: 75 mg Documented by: Docusate Sodium (Docusate Sodium 50 Mg/5 Ml Oral.Torie) 100 mg PT BID [facility] Last Admin: 06/30/20 21:52 Dose: 100 mg Documented by: Duloxetine HCl (Duloxetine 30 Mg Capsule) 60 mg PT HS [facility] Last Admin: 06/30/20 21:36 Dose: 60 mg Documented by: Enoxaparin Sodium (Enoxaparin 40 Mg/0.4 Ml Syringe) 40 mg SQ DAILY [facility] Last Admin: 06/30/20 09:16 Dose: 40 mg Documented by: Glucose (Dextrose 31 Gm Oral.Susp) 15 gm PO PRN PRN PRN Reason: Hypoglycemia Hydralazine HCl (Hydralazine 20 Mg/Ml Vial) 0 mg IV Q4HP PRN PRN Reason: Hypertension Last Admin: 07/01/20 06:13 Dose: 10 mg Documented by: Hydromorphone HCl (Hydromorphone 0.5 Mg/0.5 Ml Syringe) 0.5 mg IV Q2HP PRN; Protocol PRN Reason: Per Pain Protocol Last Admin: 07/01/20 06:46 Dose: 0.5 mg Documented by: Potassium Chloride/Sodium Chloride (Nacl 0.9% W/Kcl 20meq 1000ml) 1,000 mls @ 75 mls/hr IV .[id number] [facility] Last Admin: 06/30/20 20:05 Dose: 75 mls/hr Documented by: Piperacillin Sod/Tazobactam (Sod 3.375 gm/ Dextrose) 50 mls @ 100 mls/hr IV Q6H [facility]; Protocol Last Admin: 07/01/20 05:57 Dose: 100 mls/hr Documented by: Insulin Human Lispro (Insulin Lispro 1 Unit/0.01 Ml Unit) 0 unit SQ Q6 [facility]; Protocol Last Admin: 07/01/20 05:57 Dose: Not Given Documented by: Melatonin (Melatonin 3 Mg Tablet) 6 mg PO QHS [facility] Last Admin: 06/30/20 21:36 Dose: 6 mg Documented by: Metoclopramide HCl (Metoclopramide 10 Mg/2 Ml Vial) 10 mg IV Q6 [facility] Last Admin: 07/01/20 05:57 Dose: 10 mg Documented by: Metoprolol Tartrate (Metoprolol Tartrate 5 Mg/5 Ml Vial) 5 mg IV Q2HP PRN PRN Reason: Tachyarrhythmias, HR > 110 bpm Last Admin: 06/30/20 23:09 Dose: 5 mg Documented by: Morphine Sulfate (Morphine 2 Mg/Ml Vial) 2 mg IV Q5MIN PRN; Protocol PRN Reason: abd pain Ondansetron HCl (Ondansetron 4 Mg/2 Ml Vial) 4 mg IV Q6HP PRN PRN Reason: Nausea And Vomiting Last Admin: 06/30/20 22:17 Dose: 4 mg Documented by: Pantoprazole Sodium (Pantoprazole 40 Mg Vial) 40 mg IV BIDAC [facility] Last Admin: 06/30/20 16:12 Dose: 40 mg Documented by: Potassium Chloride (Potassium Chloride 20 Meq/15 Ml Ml) 15 meq PT BIDCC [facility] Last Admin: 06/30/20 16:14 Dose: 15 meq Documented by: Pregabalin (Pregabalin 100 Mg Capsule) 200 mg PO BID [facility] Last Admin: 06/30/20 21:36 Dose: 200 mg Documented by: Senna (Sennosides 1 Tablet) 2 tab PO HS [facility] Last Admin: 06/30/20 21:54 Dose: 2 tab Documented by: Sodium Chloride (0.9 % Sodium Chloride 10 Ml Syringe) 10 ml IV Q8 [facility] Last Admin: 07/01/20 05:57 Dose: 10 ml Documented by: Vancomycin HCl (Vancomycin Per Pharmacy) 1 order IV UD [facility]; Protocol A/P Narrative A/P Narrative: A: *Encephalopathy: unknown etiology at this point, earlier considerations were medications + sleep pattern deprivation + acute illness + 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 She did get ativan for some rads testing over the past several days. -abg no co retention; CT/MRI no acute, old infarcts -CSF unremarkable, metabolic state stable -seems to be improving *A. fib RVR: improving *Rectal bleed from fecal impaction: improved *Ileus: *COPD(): *MS: on amantadine *Depression: *Chronic opioid use: *DM: *GERD: *hypokalemia: improved P: -hold sedating meds -empiric keppra per neurology 1000bid, f/u with neurology -restarted amantadine -restarted home pysch meds via NGT -cont home dilt, off dilt gtt -IVF's, TF's per surgery -cont home psych meds -SSI -lasix prn -electrolyte replacement prn -home ppi -ppx: per surgery (lovenox) Time Spent With Patient Time: Total time spent is greater than 50% in coordination of care (as documented) at patient's floor/unit and/or counseling patient: QUALITY Stroke Symptom Onset Unknown: No VTE Deep Vein Thrombosis/Pulmonary Embolism Present on Admission: No
[2020-07-01 08:03] LABS: Blood Urea Nitrogen 12 mg/dL (8-23); Carbon Dioxide 30 mmol/L (22-30); Chloride 100 mmol/L (96-108); Glomerular Filtration Rate 92; Glucose 139 mg/dL (70-105)
[2020-07-01] MEDS: METOPROLOL TARTRATE 5 MG/5 ML VIAL IV PRN ×3 (08:04→21:01)
[2020-07-01] MEDS ORDERED: POTASSIUM CHLORIDE 20 MEQ in DEXTROSE 5% IN WATER 250 ML IV ONE (08:47)
[2020-07-01] MEDS ORDERED: POTASSIUM CHLORIDE 20 MEQ/15 ML ML PT ONE (08:47)
[2020-07-01] MEDS: levETIRAcetam 1,000 MG in 0.9 % SODIUM CHLORIDE 100 ML IV SCH ×2 (09:12→20:54)
[2020-07-01] MEDS ORDERED: DILTIAZEM 30 MG TABLET PT ONE (10:00)
--- NOTE | 2020-07-01 10:15 | XRay Report ---
CLINICAL INFORMATION: f/u of ileus COMPARISON: 06/29/2020 FINDINGS: NG tube overlies distal gastric antrum. The GI tract is moderately decompressed with only small amount of gas seen within the small bowel and colon. No evidence of bowel obstruction. No free air or soft tissue mass. IMPRESSION: Improving ileus pattern. Interpreted and Authenticated by: Kushal Draper 07/01/20
[2020-07-01] MEDS: PANTOPRAZOLE 40 MG VIAL IV SCH ×2 (10:42→17:39)
[2020-07-01] MEDS ORDERED: VANCOMYCIN 1,000 MG in 0.9 % SODIUM CHLORIDE 250 ML IV ONE (11:00)
[2020-07-01] MEDS: PREGABALIN 100 MG CAPSULE PO SCH ×2 (11:12→21:00)
[2020-07-01] MEDS: ENOXAPARIN 40 MG/0.4 ML SYRINGE SQ SCH (11:12)
[2020-07-01] MEDS: POTASSIUM CHLORIDE 20 MEQ/15 ML ML PT SCH ×2 (11:12→17:40)
[2020-07-01] MEDS: AMANTADINE HCL 100 MG CAPSULE PO SCH ×2 (11:13→20:58)
[2020-07-01] MEDS: DOCUSATE SODIUM 50 MG/5 ML ORAL.SOL PT SCH ×2 (11:13→21:01)
--- NOTE | 2020-07-01 13:34 | Internal Med Progress Note ---
SUBJECTIVE Subjective Patient information: Note initiated : 07/02/20 at 1:32 pm Service Date, if different from initiated Date: [] Patient: Reha Miles 70 y/o F admitted on 06/24/20 for rectal bleeding. Chief Complaint: [] Principal diagnosis: Fecal impaction; rectal bleeding due to mucosal tear; atrial fibrillation; Interval history: This patient was admitted on for rectal bleed secondary to fecal impaction. That has been treated and she is had multiple bowel movements improvement. During course her A. fib went into RVR and was put on a Cardizem drip. And mentally she has not responded with poor mentation. Per nurse she appeared to be with appropriate mental status on nurse intake but has since had poor me ntation. And does not appear to be safe to take oral medications and so she has not been getting the oral medications. At bedside when I try to interact with patient she seems to say only "oh yeah, oh yeah", but nothing else. 06/29 Patient is back from CT. She did get some Ativan prior to the procedure. She seem to answer yes and no to a few of my questions and I thought that she moved the toe to command wants but that I could not get her to repeat a follow other commands. She did open her eyes to sternal rub not to voice. 06/30 No real change in mentation. MRI unremarkable yesterday. Scheduled for LP this morning. He seems to have moments of clarity and then will go back to confusi on. *per nurse she was a little more interactive this evening with her care management coordinator but when i returned to see her at bedside she was back at her usual mental state. Empiric keppra loading dose given this morning. I discussed the case with [place] neurologist Dr. Jean. Relayed the CSF/Imaging/lab findings/etc... He recommended another loading dose of Keppra 2grams tonight and then 1000 bid. amantadine w/d could also be part of it. This was started tonight. 07/01 Patient a little more responsive today. Seem to move feet to command and answer a few simple questions as to where she was out in order full name is. Started amantadine last night. And also continued Keppra per recommendations from neurologist. 07/02-encephalopathic but follows simple commands, mild leukocytosis today. Sl owly advancing diet-per surgery. Head: Atraumatic, normal inspection. Eyes: normal appearance, no scleral icterus. Neck: full ROM Respiratory: no respiratory distress. Cardiovascular: normal rate and rhythm, S1, S2. GI/Abdominal: NG tube, soft abdomen, nontender, no guarding. Extremities: full range of motion, nontender. Neurological: CN II-XII intact, intact motor, intact sensation. Psychiatric: confused Skin: warm, normal color Constitutional Vitals: Vital Signs Temp Pulse Resp BP Pulse Ox 97.9 F 108 H 30 H 161/95 95 07/01/20 04:01 06/30/20 20:59 07/01/20 12:01 07/01/20 12:01 07/01/20 12:01 Period Temp Pulse Resp BP Sys/Weinstein Pulse Ox Last 24 Hr 97.4 F-97.9 F 108 14-33 132-169/75-111 78-100 Intake and Output 06/30/20 07/01/20 07/01/20 21:59 05:59 13:59 Intake Total 1344 260 500 Output Total 550 2400 Balance 794 -2140 500 Weight 83.007 kg Intake & Output: Intake & Output 06/30/20 07/01/20 07/01/20 21:59 05:59 13:59 Intake Total 1344 260 500 Output Total 550 2400 Balance 794 -2140 500 Weight 83.007 kg Intake: IV 1034 170 410 Sodium Chloride 0.9% 1,000 ml @ 684 75 mls/hr IV .[id number] [facility] Rx#: [id number] Zosyn 3.375 gm In Dextrose 5% 50 50 50 in Water 50 ml @ 100 mls/hr IV Q6H [facility] Rx#:[id number] Vancomycin 1,000 mg In Sodium 250 250 Chloride 0.9% 250 ml @ 250 mls/ hr IV ONCE ONE Rx#:[id number] Keppra 1,000 mg In Sodium 120 110 Chloride 0.9% 100 ml @ 200 mls/ hr IV Q12 [facility] Rx#:[id number] Tube Feeding 0 0 0 GI Tube Flush 310 90 90 Output: Urine Catheter Amount 550 2400 Other: Urine Appearance Clear Urine Color Straw Stool Size Small Stool Color Brown Stool Consistency Loose # of times incontinent of 2 1 Bowels OBJ DATA Labs CBC & Chem 7: 07/02/20 05:45 07/02/20 05:45 Labs: Abnormal Lab Results 07/01/20 06/30/20 06/30/20 05:55 15:40 05:20 WBC 12.7 H Hgb 11.2 L MCH 25.4 L MCHC RDW 15.2 H MPV 10.8 H Lymph % (Auto) [place] % (Auto) Lymph # (Auto) [place] # (Auto) Seg Neutrophils % Lymphocytes % 14 L Monocytes % (Manual) Absolute Neutrophils RBC Morphology Abnormal A Anisocytosis 1+ A Potassium 3.0 L Glucose 139 H Uric Acid Total Protein Albumin CSF Glucose 96 H CSF Total Protein 73.0 H 06/30/20 06/29/20 06/29/20 05:20 05:15 05:15 WBC 11.9 H Hgb 11.1 L MCH 25.4 L MCHC 30.5 L RDW 15.6 H MPV 11.0 H Lymph % (Auto) 7.7 L [place] % (Auto) 13.0 H Lymph # (Auto) 0.92 L [place] # (Auto) 1.55 H Seg Neutrophils % 79 H Lymphocytes % 6 L Monocytes % (Manual) 13 H Absolute Neutrophils 9.29 H RBC Morphology Anisocytosis Potassium 3.2 L Glucose 140 H Uric Acid 2.3 L Total Protein 5.8 L Albumin 2.9 L CSF Glucose CSF Total Protein 06/29/20 05:15 WBC Hgb MCH MCHC RDW MPV Lymph % (Auto) [place] % (Auto) Lymph # (Auto) [place] # (Auto) Seg Neutrophils % Lymphocytes % Monocytes % (Manual) Absolute Neutrophils RBC Morphology Anisocytosis Potassium 2.8 L* Glucose 157 H Uric Acid Total Protein 5.6 L Albumin 3.0 L CSF Glucose CSF Total Protein Meds: Medications Amantadine HCl (Amantadine Hcl 100 Mg Capsule) 100 mg PO BID [facility] Last Admin: 07/01/20 11:13 Dose: 100 mg Documented by: Dextrose (Dextrose 50% 50 Ml Vial) 0 ml IV UD PRN PRN Reason: Hypoglycemia Diagnostic Test (Pha) (Accu-Chek 1 Each Strip) 1 each FS Q6 [facility]; Protocol Last Admin: 07/01/20 05:56 Dose: 1 each Documented by: Diltiazem HCl (Diltiazem 30 Mg Tablet) 90 mg PT Q6H [facility] Docusate Sodium (Docusate Sodium 50 Mg/5 Ml Oral.Torie) 100 mg PT BID [facility] Last Admin: 07/01/20 11:13 Dose: 100 mg Documented by: Duloxetine HCl (Duloxetine 30 Mg Capsule) 60 mg PT HS [facility] Last Admin: 06/30/20 21:36 Dose: 60 mg Documented by: Enoxaparin Sodium (Enoxaparin 40 Mg/0.4 Ml Syringe) 40 mg SQ DAILY [facility] Last Admin: 07/01/20 11:12 Dose: 40 mg Documented by: Glucose (Dextrose 31 Gm Oral.Susp) 15 gm PO PRN PRN PRN Reason: Hypoglycemia Hydralazine HCl (Hydralazine 20 Mg/Ml Vial) 0 mg IV Q4HP PRN PRN Reason: Hypertension Last Admin: 07/01/20 11:11 Dose: 10 mg Documented by: Hydromorphone HCl (Hydromorphone 2 Mg Tablet) 2 mg PO Q4HP PRN; Protocol PRN Reason: Per Pain Protocol Hydromorphone HCl (Hydromorphone 0.5 Mg/0.5 Ml Syringe) 0.5 mg IV Q2HP PRN; Protocol PRN Reason: Per Pain Protocol Last Admin: 07/01/20 06:46 Dose: 0.5 mg Documented by: Potassium Chloride/Sodium Chloride (Nacl 0.9% W/Kcl 20meq 1000ml) 1,000 mls @ 75 mls/hr IV .[id number] [facility] Last Admin: 06/30/20 20:05 Dose: 75 mls/hr Documented by: Levetiracetam 1,000 mg/ Sodium (Chloride) 110 mls @ 200 mls/hr IV Q12 [facility] Last Infusion: 07/01/20 09:45 Dose: Infused Documented by: Piperacillin Sod/Tazobactam (Sod 3.375 gm/ Dextrose) 50 mls @ 100 mls/hr IV Q6H [facility]; Protocol Last Infusion: 07/01/20 06:30 Dose: Infused Documented by: Insulin Human Lispro (Insulin Lispro 1 Unit/0.01 Ml Unit) 0 unit SQ Q6 [facility]; Pr otocol Last Admin: 07/01/20 05:57 Dose: Not Given Documented by: Melatonin (Melatonin 3 Mg Tablet) 6 mg PO QHS [facility] Last Admin: 06/30/20 21:36 Dose: 6 mg Documented by: Metoclopramide HCl (Metoclopramide 10 Mg/2 Ml Vial) 10 mg IV Q12 [facility] Metoprolol Tartrate (Metoprolol Tartrate 5 Mg/5 Ml Vial) 5 mg IV Q2HP PRN PRN Reason: Tachyarrhythmias, HR > 110 bpm Last Admin: 07/01/20 08:04 Dose: 5 mg Documented by: Morphine Sulfate (Morphine 2 Mg/Ml Vial) 2 mg IV Q5MIN PRN; Protocol PRN Reason: abd pain Ondansetron HCl (Ondansetron 4 Mg/2 Ml Vial) 4 mg IV Q6HP PRN PRN Reason: Nausea And Vomiting Last Admin: 06/30/20 22:17 Dose: 4 mg Documented by: Pantoprazole Sodium (Pantoprazole 40 Mg Vial) 40 mg IV BIDAC [facility] Last Admin: 07/01/20 10:42 Dose: 40 mg Documented by: Potassium Chloride (Potassium Chloride 20 Meq/15 Ml Ml) 15 meq PT BIDCC [facility] Last Admin: 07/01/20 11:12 Dose: 15 meq Documented by: Pregabalin (Pregabalin 100 Mg Capsule) 200 mg PO BID [facility] Last Admin: 07/01/20 11:12 Dose: 200 mg Documented by: Senna (Sennosides 1 Tablet) 2 tab PO HS [facility] Last Admin: 06/30/20 21:54 Dose: 2 tab Documented by: Sodium Chloride (0.9 % Sodium Chloride 10 Ml Syringe) 10 ml IV Q8 [facility] Last Admin: 07/01/20 08:04 Dose: 10 ml Documented by: A/P Narrative A/P Narrative: Assessment: 70-year-old female history of hypertension, diabetes mellitus type 2, atrial fibrillation on apixaban, COPD, multiple sclerosis on amantadine, GERD, chronic pain on opioids, depression admitted for rectal bleed felt to be from fecal impaction and later developed encephalopathy of uncertain etiology. Hospitalist were consulted for encephalopathy. 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 She did get ativan for some rads testing over the past several days. -abg no co retention; CT/MRI no acute, old infarcts -CSF unremarkable, metabolic state stable -seems to be improving *A. fib RVR: improving *Rectal bleed from fecal impaction: improved *Ileus: *COPD(): *MS: on amantadine *Depression: *Chronic opioid use: *DM: *GERD: *hypokalemia: improved P: -hold sedating meds -empiric keppra per neurology 1000bid, f/u with neurology -continue home amantadine and home pych meds via NGT -cont home dilt, off dilt gtt -IVF's, TF's per surgery -cont home psych meds -SSI -lasix prn -electrolyte replacement prn -home ppi -ppx: per surgery (lovenox) Time Spent With Patient Time: Total time spent is greater than 50% in coordination of care (as documented) at patient's floor/unit and/or counseling patient: QUALITY Stroke Symptom Onset Unknown: No VTE Deep Vein Thrombosis/Pulmonary Embolism Present on Admission: No
[2020-07-01] MEDS: HYDROmorphone 2 MG TABLET PO PRN ×2 (13:48→20:55)
--- NOTE | 2020-07-01 14:13 | General Surgery Progress Note ---
SUBJECTIVE Subjective Patient information: Note initiated : 07/01/20 at 2:08 pm Service Date, if different from initiated Date: [] Patient: Rhea Miles 70 y/o F admitted on 06/24/20 for rectal bleeding. Chief Complaint: [] Principal diagnosis: Fecal impaction; rectal bleeding due to mucosal tear; atrial fibrillation; Interval history: Patient's vital signs are stable Constitutional Vitals: Vital Signs Temp Pulse Resp BP Pulse Ox 97.9 F 108 H 30 H 161/95 95 07/01/20 04:01 06/30/20 20:59 07/01/20 12:01 07/01/20 12:01 07/01/20 12:01 Period Temp Pulse Resp BP Sys/Weinstein Pulse Ox Last 24 Hr 97.4 F-97.9 F 108 14-33 132-169/75-111 78-100 Intake and Output 07/01/20 07/01/20 07/01/20 05:59 13:59 21:59 Intake Total 260 500 Output Total 2400 Balance -2140 500 Intake & Output: Intake & Output 07/01/20 07/01/20 07/01/20 05:59 13:59 21:59 Intake Total 260 500 Output Total 2400 Balance -2140 500 Intake: IV 170 410 Zosyn 3.375 gm In Dextrose 5% 50 50 in Water 50 ml @ 100 mls/hr IV Q6H [facility] Rx#:[id number] Vancomycin 1,000 mg In Sodium 250 Chloride 0.9% 250 ml @ 250 mls/ hr IV ONCE ONE Rx#:[id number] Keppra 1,000 mg In Sodium 120 110 Chloride 0.9% 100 ml @ 200 mls/ hr IV Q12 [facility] Rx#:[id number] Tube Feeding 0 0 GI Tube Flush 90 90 Output: Urine Catheter Amount 2400 Other: Urine Appearance Clear Urine Color Straw Stool Size Small Stool Color Brown Stool Consistency Loose # of times incontinent of 1 Bowels A/P Time Spent With Patient Time: Total time spent is greater than 50% in coordination of care (as documented) at patient's floor/unit and/or counseling patient:
--- NOTE | 2020-07-01 14:23 | General Surgery Progress Note ---
SUBJECTIVE Subjective Patient information: Note initiated : 07/01/20 at 2:18 pm Service Date, if different from initiated Date: [] Patient: Rhea Miles 70 y/o F admitted on 06/24/20 for rectal bleeding. Chief Complaint: [] Principal diagnosis: Fecal impaction; rectal bleeding due to mucosal tear; atrial fibrillation; Interval history: Patient is significantly improved. She has had better bowel movements during the night and her ileus is improved. SHE is mentally more alert though not fully aware. She does follow simple commands and she is drinking some liquids. She still complains of soft tissue pain. Constitutional Vitals: Vital Signs Temp Pulse Resp BP Pulse Ox 97.9 F 108 H 30 H 161/95 95 07/01/20 04:01 06/30/20 20:59 07/01/20 12:01 07/01/20 12:01 07/01/20 12:01 Period Temp Pulse Resp BP Sys/Weinstein Pulse Ox Last 24 Hr 97.4 F-97.9 F 108 14-33 132-169/75-111 78-100 Intake and Output 07/01/20 07/01/20 07/01/20 05:59 13:59 21:59 Intake Total 260 500 Output Total 2400 Balance -2140 500 Intake & Output: Intake & Output 07/01/20 07/01/20 07/01/20 05:59 13:59 21:59 Intake Total 260 500 Output Total 2400 Balance -2140 500 Intake: IV 170 410 Zosyn 3.375 gm In Dextrose 5% 50 50 in Water 50 ml @ 100 mls/hr IV Q6H [facility] Rx#:[id number] Vancomycin 1,000 mg In Sodium 250 Chloride 0.9% 250 ml @ 250 mls/ hr IV ONCE ONE Rx#:[id number] Keppra 1,000 mg In Sodium 120 110 Chloride 0.9% 100 ml @ 200 mls/ hr IV Q12 [facility] Rx#:[id number] Tube Feeding 0 0 GI Tube Flush 90 90 Output: Urine Catheter Amount 2400 Other: Urine Appearance Clear Urine Color Straw Stool Size Small Stool Color Brown Stool Consistency Loose # of times incontinent of 1 Bowels Head Head exam: Present atraumatic, normal inspection and normocephalic Eye Eye exam: Present EOMI Pupils: Present PERRL ENT ENT exam: Present mucous membranes dry and normal exam Neck Neck exam: Present full ROM; Absent lymphadenopathy, tenderness and thyromegaly Respiratory Respiratory exam: Present normal respiratory exam and CTAB; Absent accessory muscle use, rhonchi and wheezes Cardiovascular Cardiovascular exam: Present irregular rhythm, +S1, +S2 and tachycardia; Absent JVD GI/Abdominal GI/Abdominal exam: Present normal bowel sounds, distended and tenderness (Diffuse abdominal tenderness; active bowel sounds; no mass noted) Extremities Exam Extremities exam: Present calf tenderness, full ROM, normal inspection, tenderness (Tenderness of soft tissue of upper and lower extremities) and Foot pink and warm; Absent pedal edema Neurological Exam Additional comments: Patient is more mentally alert but not quite oriented to place and time. She does follow simple commands. She is able to take oral liquids without difficulty. Psychiatric Psychiatric exam: Present agitated and anxious Skin Skin exam: Present petechiae and warm; Absent erythema and pallor A/P Assessment and plan (1) Acute on chronic alteration in mental status: Status: Acute (2) Therapeutic opioid-induced constipation (OIC): Status: Acute (3) Hypertension: Status: Chronic Comment: Goal BP 130/80 using Rx with anti-proteinuric effects Qualifiers: Hypertension type: essential hypertension Qualified Code(s): I10 - Essential (primary) hypertension (4) Atrial fibrillation with rapid ventricular response: Status: Acute (5) lunch cook prescription opiate use: Status: Chronic (6) COPD (chronic obstructive pulmonary disease): Status: Chronic Narrative A/P Narrative: We will try to advance oral diet but will start slow tube feeds with precautions to prevent aspiration. Follow-up abdominal exam and x-rays in the morning. Time Spent With Patient Time: Total time spent is greater than 50% in coordination of care (as documented) at patient's floor/unit and/or counseling patient:
[2020-07-01 15:06] LABS: Basophils # (Auto) 0.06 K/mcL (0.00-0.20); Basophils % (Auto) 0.6 % (0.0-2.0); Eosinophils # (Auto) 0.13 K/mcL (0.00-0.70); Eosinophils % (Auto) 1.3 % (0.0-7.0); Hematocrit 32.9 % (36.0-48.0); Hemoglobin 10.3 g/dL (12.0-15.0); Lymphocytes # (Auto) 0.94 K/mcL (1.50-4.80); Lymphocytes % (Auto) 9.3 % (15.0-49.0); Mean Cell Volume 83.5 fL (80.0-100.0); Mean Corpuscular HGB Conc 31.3 g/dL (31.0-36.0); Mean Platelet Volume 11.1 fL (7.4-10.4); Monocytes # (Auto) 1.37 K/mcL (0.10-0.90); Monocytes % (Auto) 13.6 % (1.0-12.0); Neutrophils % (Auto) 75.2 % (38.0-78.0); Platelet Count 222 K/mcL (140-440); RBC 3.94 M/mcL (4.00-5.20); Red Cell Distribution Width 15.5 % (11.5-14.5); WBC 10.1 K/mcL (4.5-11.0)
[2020-07-01] MEDS: NACL 0.9% W/KCL 20MEQ 1,000 ML IV SCH ×2 (15:20→21:42)
[2020-07-01 16:45] LABS: ALT/SGPT 8 U/L (<40); AST/SGOT 9 U/L (<32); Albumin 2.8 gm/dL (3.2-5.2); Albumin/Globulin Ratio 0.9 (1.0-2.3); Alkaline Phosphatase 75 U/L (39-117); Bilirubin,Direct < 0.2 mg/dL (0-0.3); Bilirubin,Total 0.2 mg/dL (0.1-1.0); Blood Urea Nitrogen 11 mg/dL (8-23); Calcium 9.2 mg/dL (8.6-10.4); Carbon Dioxide 29 mmol/L (22-30); Chloride 99 mmol/L (96-108); Globulin 3.1 gm/dL (2.2-3.7); Glomerular Filtration Rate 97; Glucose 201 mg/dL (70-105); Lactate Dehydrogenase 183 U/L (135-225); Phosphorous 1.9 mg/dL (2.5-4.5); Triglycerides 124 mg/dL (<150); Uric Acid 2.2 mg/dL (2.5-8.0)
[2020-07-01 16:46] LABS: Prealbumin 5.4 mg/dL (20.0-40.0)
[2020-07-01] MEDS: DULoxetine 30 MG CAPSULE PT SCH (20:57)
[2020-07-01] MEDS: MELATONIN 3 MG TABLET PO SCH (20:58)
[2020-07-01] MEDS: SENNOSIDES 1 TABLET PO SCH (21:00)
[2020-07-02] MEDS: NACL 0.9% W/KCL 20MEQ 1,000 ML IV SCH ×2 (03:45→16:40)
[2020-07-02] MEDS: HYDROmorphone 0.5 MG/0.5 ML SYRINGE IV PRN ×2 (04:10→23:42)
[2020-07-02] MEDS: DILTIAZEM 30 MG TABLET PT SCH ×4 (05:47→23:37)
[2020-07-02] MEDS: INSULIN LISPRO 1 UNIT/0.01 ML UNIT SQ SCH ×4 (05:47→23:38)
[2020-07-02] MEDS: 0.9 % SODIUM CHLORIDE 10 ML SYRINGE IV SCH ×3 (05:47→21:18)
[2020-07-02 07:48] LABS: Hematocrit 32.7 % (36.0-48.0); Mean Cell Volume 83.4 fL (80.0-100.0); Mean Corpuscular HGB Conc 30.6 g/dL (31.0-36.0); Mean Platelet Volume 10.9 fL (7.4-10.4); Platelet Count 261 K/mcL (140-440); RBC 3.92 M/mcL (4.00-5.20); Red Cell Distribution Width 15.3 % (11.5-14.5); WBC 11.6 K/mcL (4.5-11.0)
[2020-07-02] MEDS: PANTOPRAZOLE 40 MG VIAL IV SCH ×2 (07:48→16:37)
[2020-07-02 08:12] LABS: ALT/SGPT 8 U/L (<40); AST/SGOT 8 U/L (<32); Albumin 2.9 gm/dL (3.2-5.2); Albumin/Globulin Ratio 0.9 (1.0-2.3); Alkaline Phosphatase 78 U/L (39-117); Bilirubin,Direct < 0.2 mg/dL (0-0.3); Bilirubin,Total 0.2 mg/dL (0.1-1.0); Blood Urea Nitrogen 13 mg/dL (8-23); Calcium 9.5 mg/dL (8.6-10.4); Carbon Dioxide 28 mmol/L (22-30); Chloride 104 mmol/L (96-108); Globulin 3.2 gm/dL (2.2-3.7); Glomerular Filtration Rate 92; Glucose 178 mg/dL (70-105); Lactate Dehydrogenase 188 U/L (135-225); Triglycerides 125 mg/dL (<150); Uric Acid 2.2 mg/dL (2.5-8.0)
[2020-07-02 08:13] LABS: Blood Urea Nitrogen 13 mg/dL (8-23); Calcium 9.5 mg/dL (8.6-10.4); Carbon Dioxide 28 mmol/L (22-30); Chloride 103 mmol/L (96-108); Glomerular Filtration Rate 92; Glucose 173 mg/dL (70-105)
[2020-07-02] MEDS: DOCUSATE SODIUM 50 MG/5 ML ORAL.SOL PT SCH ×2 (10:26→21:10)
[2020-07-02 10:29] LABS: Anisocytosis 1+ (None Seen); Band Neutrophils % 4 % (0-10); Hypochromasia FEW (None Seen); Lymphocytes % 11 % (15-49); Microcytosis FEW (None Seen); Monocytes % (Manual) 12 % (1-12); Platelet Estimate NORMAL (Normal); RBC Morphology ABNORMAL (Normal); Reactive Lymphocytes 2 % (0-2); Segmented Neutrophils % 71 % (38-78)
[2020-07-02] MEDS: AMANTADINE HCL 100 MG CAPSULE PO SCH ×2 (10:34→20:57)
[2020-07-02] MEDS: HYDROmorphone 2 MG TABLET PO PRN (10:34)
[2020-07-02] MEDS: METOPROLOL TARTRATE 5 MG/5 ML VIAL IV PRN ×3 (10:36→21:15)
[2020-07-02] MEDS: ENOXAPARIN 40 MG/0.4 ML SYRINGE SQ SCH (10:36)
[2020-07-02] MEDS: PREGABALIN 100 MG CAPSULE PO SCH ×2 (10:37→21:15)
[2020-07-02] MEDS: METOCLOPRAMIDE 10 MG/2 ML VIAL IV SCH ×2 (10:37→21:15)
[2020-07-02] MEDS: levETIRAcetam 1,000 MG in 0.9 % SODIUM CHLORIDE 100 ML IV SCH ×2 (10:37→21:16)
[2020-07-02] MEDS: POTASSIUM CHLORIDE 20 MEQ/15 ML ML PT SCH ×2 (10:38→18:12)
[2020-07-02] MEDS ORDERED: NEUTRA PHOS 1 PACKET PO ONE (10:45)
[2020-07-02] MEDS ORDERED: MAGNESIUM SULFATE 2 GM/50 ML BAG IV ONE (11:00)
[2020-07-02] MEDS: hydrALAZINE 20 MG/ML VIAL IV PRN ×3 (12:38→21:16)
--- NOTE | 2020-07-02 15:14 | General Surgery Progress Note ---
SUBJECTIVE Subjective Patient information: Note initiated : 07/02/20 at 3:12 pm Service Date, if different from initiated Date: [] Patient: Rhea Mlies 70 y/o F admitted on 06/24/20 for rectal bleeding. Chief Complaint: [] Principal diagnosis: Fecal impaction; rectal bleeding due to mucosal tear; atrial fibrillation Interval history: Patient is improving slightly each day. Though she still has significant mental status deficiency she is more alert and aware than on yesterday. She still will not take oral feedings though she is beginning to drink more without difficulty. Her residuals after 4 hours is only 10 cc so her rate can be increased. She is having 1-2 liquid bowel movements per day. When questioned she does not complain of any abdominal discomfort. Constitutional Vitals: Vital Signs Temp Pulse Resp BP Pulse Ox 99.6 F H 115 H 26 H 158/88 96 07/02/20 12:00 07/02/20 08:02 07/02/20 12:00 07/02/20 12:00 07/02/20 12:00 Period Temp Pulse Resp BP Sys/Weinstein Pulse Ox Last 24 Hr 97.2 F-99.6 F 115 15-26 118-171/62-102 92-99 Intake and Output 07/02/20 07/02/20 07/02/20 05:59 13:59 21:59 Intake Total 1555 580 212 Output Total 550 Balance 1005 580 212 Weight 183 lb Patient Weight 07/03/20 05:59 Weight 183 lb Intake & Output: Intake & Output 07/02/20 07/02/20 07/02/20 05:59 13:59 21:59 Intake Total 1555 580 212 Output Total 550 Balance 1005 580 212 Weight 183 lb Intake: Nourishment/Supplement quantity 145 (ml) IV 1041 110 NaCl 0.9% W/KCl 20Meq 1000ML 1, 931 000 ml @ 75 mls/hr IV .[id number] [facility] Rx#:[id number] Keppra 1,000 mg In Sodium 110 110 Chloride 0.9% 100 ml @ 200 mls/ hr IV Q12 [facility] Rx#:[id number] Tube Feeding 394 145 182 GI Tube Flush 120 120 30 NG Tube Flush 60 NG/OG 60 Output: Urine Catheter Amount 550 Other: Meal Nourishment/Supplement Feeding Ability Total Assistance Nourishment/Supplement name Rubén Urine Appearance Clear Clear Urine Color Dark Yellow Straw Urine Odor Normal Stool Size Smear Small Stool Color Yellow Blood Tinged Stool Consistency Liquid # Bowel Movements 1 # of times incontinent of 1 Bowels Head Head exam: Present atraumatic, normal inspection and normocephalic Eye Eye exam: Present EOMI Pupils: Present PERRL ENT ENT exam: Present mucous membranes dry and normal exam Neck Neck exam: Present full ROM; Absent lymphadenopathy, tenderness and thyromegaly Respiratory Respiratory exam: Present normal respiratory exam and CTAB; Absent accessory muscle use, rhonchi and wheezes Cardiovascular Cardiovascular exam: Present irregular rhythm, +S1, +S2 and tachycardia; Absent JVD GI/Abdominal GI/Abdominal exam: Present normal bowel sounds, distended and tenderness (Diffuse abdominal tenderness; active bowel sounds; no mass noted) Extremities Exam Extremities exam: Present calf tenderness, full ROM, normal inspection, tenderness (Tenderness of soft tissue of upper and lower extremities) and Foot pink and warm; Absent pedal edema Neurological Exam Additional comments: Patient is more mentally alert but not quite oriented to place and time. She does follow simple commands. She is able to take oral liquids without difficulty. Psychiatric Psychiatric exam: Present agitated and anxious A/P Assessment and plan (1) Acute on chronic alteration in mental status: Status: Acute (2) Therapeutic opioid-induced constipation (OIC): Status: Acute (3) Hypertension: Status: Chronic Comment: Goal BP 130/80 using Rx with anti-proteinuric effects Qualifiers: Hypertension type: essential hypertension Qualified Code(s): I10 - Essential (primary) hypertension (4) Atrial fibrillation with rapid ventricular response: Status: Acute (5) detention prescription opiate use: Status: Chronic (6) COPD (chronic obstructive pulmonary disease): Status: Chronic Narrative A/P Narrative: continue on PCU status Increase tube feeds to 50 cc/h Check abdominal x-rays in the morning Time Spent With Patient Time: Total time spent is greater than 50% in coordination of care (as documented) at patient's floor/unit and/or counseling patient:
[2020-07-02] MEDS: DULoxetine 30 MG CAPSULE PT SCH (21:14)
[2020-07-02] MEDS: MELATONIN 3 MG TABLET PO SCH (21:14)
[2020-07-02] MEDS: SENNOSIDES 1 TABLET PO SCH (21:14)
--- NOTE | 2020-07-03 02:47 | XRay Report ---
CLINICAL INFORMATION: Ng replacement,x-ray prior to use COMPARISON: None. FINDINGS: NG tube overlies the gastric antrum. Mild dilatation of the colon small bowel loops appreciated. No free air IMPRESSION: Mild ileus-stable. NG tube overlies the gastric antrum. Interpreted and Authenticated by: Kushal Draper 07/03/20
[2020-07-03] MEDS: NACL 0.9% W/KCL 20MEQ 1,000 ML IV SCH ×4 (05:16→18:50)
[2020-07-03] MEDS: INSULIN LISPRO 1 UNIT/0.01 ML UNIT SQ SCH ×3 (05:22→17:53)
[2020-07-03] MEDS: 0.9 % SODIUM CHLORIDE 10 ML SYRINGE IV SCH ×3 (05:23→20:34)
[2020-07-03] MEDS: DILTIAZEM 30 MG TABLET PT SCH ×2 (05:29→13:35)
[2020-07-03] MEDS: METOPROLOL TARTRATE 5 MG/5 ML VIAL IV PRN ×5 (06:56→22:18)
[2020-07-03] MEDS: PANTOPRAZOLE 40 MG VIAL IV SCH ×2 (06:56→17:57)
[2020-07-03] MEDS: PREGABALIN 100 MG CAPSULE PO SCH ×2 (08:01→20:49)
[2020-07-03] MEDS: POTASSIUM CHLORIDE 20 MEQ/15 ML ML PT SCH ×2 (08:02→17:57)
[2020-07-03] MEDS: AMANTADINE HCL 100 MG CAPSULE PO SCH ×2 (08:02→20:49)
[2020-07-03] MEDS: DOCUSATE SODIUM 50 MG/5 ML ORAL.SOL PT SCH ×2 (08:02→20:53)
[2020-07-03] MEDS: ENOXAPARIN 40 MG/0.4 ML SYRINGE SQ SCH (08:02)
[2020-07-03] MEDS: METOCLOPRAMIDE 10 MG/2 ML VIAL IV SCH (08:02)
[2020-07-03 08:34] LABS: ALT/SGPT 8 U/L (<40); AST/SGOT 19 U/L (<32); Albumin 2.6 gm/dL (3.2-5.2); Albumin/Globulin Ratio 0.7 (1.0-2.3); Alkaline Phosphatase 96 U/L (39-117); Bilirubin,Direct < 0.2 mg/dL (0-0.3); Bilirubin,Total 0.2 mg/dL (0.1-1.0); Blood Urea Nitrogen 12 mg/dL (8-23); Calcium 9.5 mg/dL (8.6-10.4); Carbon Dioxide 25 mmol/L (22-30); Chloride 102 mmol/L (96-108); Globulin 3.8 gm/dL (2.2-3.7); Glomerular Filtration Rate 87; Glucose 235 mg/dL (70-105); Lactate Dehydrogenase 316 U/L (135-225); Phosphorous 2.9 mg/dL (2.5-4.5); Triglycerides 156 mg/dL (<150); Uric Acid 2.2 mg/dL (2.5-8.0)
[2020-07-03] MEDS: HYDROmorphone 0.5 MG/0.5 ML SYRINGE IV PRN ×2 (08:42→20:51)
[2020-07-03] MEDS: levETIRAcetam 1,000 MG in 0.9 % SODIUM CHLORIDE 100 ML IV SCH ×2 (08:46→20:53)
--- NOTE | 2020-07-03 09:35 | General Surgery Progress Note ---
SUBJECTIVE Subjective Patient information: Note initiated : 07/03/20 at 9:31 am Service Date, if different from initiated Date: [] Patient: Rhea Miles 70 y/o F admitted on 06/24/20 for rectal bleeding. Chief Complaint: [] Principal diagnosis: Fecal impaction; rectal bleeding due to mucosal tear; atrial fibrillation Interval history: Interval history: Patient is improving slightly each day. Though she still has significant mental status deficiency she is more alert and aware than yesterday. She is tolerating a little bit of oral feedings, she is tolerating tube feeds at 50 cc an hour.. She is having multiple liquid bowel movements per day. When questioned she does not complain of any abdominal discomfort. Constitutional Vitals: Vital Signs Temp Pulse Resp BP Pulse Ox 97.9 F 108 H 27 H 167/95 99 07/03/20 08:01 07/03/20 01:59 07/03/20 08:01 07/03/20 08:01 07/03/20 08:01 Period Temp Pulse Resp BP Sys/Weinstein Pulse Ox Last 24 Hr 97.6 F-99.6 F 108-133 16-42 111-189/43-115 92-99 Intake and Output 07/02/20 07/03/20 07/03/20 21:59 05:59 13:59 Intake Total 1714 2037 310 Output Total 1300 350 Balance 414 1687 310 Weight 183 lb 9.6 oz Intake & Output: Intake & Output 07/02/20 07/03/20 07/03/20 21:59 05:59 13:59 Intake Total 1714 2037 310 Output Total 1300 350 Balance 414 1687 310 Weight 183 lb 9.6 oz Intake: IV 1019 1064 NaCl 0.9% W/KCl 20Meq 1000ML 1, 969 954 000 ml @ 75 mls/hr IV .[id number] [facility] Rx#:[id number] Keppra 1,000 mg In Sodium 110 Chloride 0.9% 100 ml @ 200 mls/ hr IV Q12 [facility] Rx#:[id number] Oral 0 Tube Feeding 335 533 270 GI Tube Flush 60 350 40 NG Tube Flush 300 90 NG/OG 300 90 Output: Urine Catheter Amount 1300 350 Other: Urine Appearance Clear Clear Urine Color Bright Yellow Dark Yellow Urine Odor Normal Normal Stool Size Large Large Stool Color Yellow Yellow Blood Tinged Stool Consistency Watery Loose # Bowel Movements 1 # of times incontinent of 3 Bowels General appearance: cooperative and no acute distress GI/Abdominal GI/Abdominal exam: Present soft; Absent tenderness A/P Narrative A/P Narrative: Assessment and plan (1) Acute on chronic alteration in mental status: Status: Acute (2) Therapeutic opioid-induced constipation (OIC): Status: Acute (3) Hypertension: Status: Chronic Comment: Goal BP 130/80 using Rx with anti-proteinuric effects Qualifiers: Hypertension type: essential hypertension Qualified Code(s): I10 - Essential (primary) hypertension (4) Atrial fibrillation with rapid ventricular response: Status: Acute (5) intermediate card tender prescription opiate use: Status: Chronic (6) COPD (chronic obstructive pulmonary disease): Status: Chronic Narrative A/P Narrative: continue on PCU status Continue with tube feeds to 50 cc/h, continue with clear liquid diet Check abdominal x-rays in the morning We will stop Reglan to decrease diarrhea. Time Spent With Patient Time: Total time spent is greater than 50% in coordination of care (as documented) at patient's floor/unit and/or counseling patient:
--- NOTE | 2020-07-03 12:05 | XRay Report ---
CLINICAL INFORMATION: FOLLOW -UP OF SMALL BOWEL OBSTRUCTION and ileus COMPARISON: None. FINDINGS: NG tube is in stable position overlying the gastric antrum. The GI tract is moderately decompressed with modest gas in the stomach and transverse colon. No evidence of bowel obstruction. No free air or soft tissue mass. IMPRESSION: Decompressed GI tract. No evidence of bowel obstruction Interpreted and Authenticated by: Kushal Draper 07/03/20
[2020-07-03] MEDS ORDERED: [UNRECOGNIZED DRUG - OTHER] PO SCH (13:15)
[2020-07-03] MEDS ORDERED: DILTIAZEM HCL 300 MG PO SCH (13:15)
[2020-07-03] MEDS: DILTIAZEM 120 MG CAP.XL.24H PO SCH (14:50)
[2020-07-03] MEDS: DILTIAZEM 180 MG CAP.XL.24H PO SCH (14:51)
--- NOTE | 2020-07-03 16:09 | Internal Med Progress Note ---
SUBJECTIVE Subjective Patient information: Note initiated : 07/03/20 at 4:08 pm Service Date, if different from initiated Date: [] Patient: Rhea Miles 70 y/o F admitted on 06/24/20 for rectal bleeding. Chief Complaint: [] Principal diagnosis: Fecal impaction; rectal bleeding due to mucosal tear; atrial fibrillation Interval history: This patient was admitted on for rectal bleed secondary to fecal impaction. That has been treated and she is had multiple bowel movements improvement. During course her A. fib went into RVR and was put on a Cardizem drip. And mentally she has not responded with poor mentation. Per nurse she appeared to be with appropriate mental status on nurse intake but has since had poor men tation. And does not appear to be safe to take oral medications and so she has not been getting the oral medications. At bedside when I try to interact with patient she seems to say only "oh yeah, o h yeah", but nothing else. 06/29 Patient is back from CT. She did get some Ativan prior to the procedure. She seem to answer yes and no to a few of my questions and I thought that she moved the toe to command wants but that I could not get her to repeat a follow other commands. She did open her eyes to sternal rub not to voice. 06/30 No real change in mentation. MRI unremarkable yesterday. Scheduled for LP this morning. He seems to have moments of clarity and then will go back to confusio n. *per nurse she was a little more interactive this evening with her director of healthcare systems but when i returned to see her at bedside she was back at her usual mental state. Empiric keppra loading dose given this morning. I discussed the case with [place] neurologist Dr. Jean. Relayed the CSF/Imaging/lab findings/etc... He recommended another loading dose of Keppra 2grams tonight and then 1000 bid. amantadine w/d could also be part of it. This was started tonight. 07/01 Patient a little more responsive today. Seem to move feet to command and answer a few simple questions as to where she was out in order full name is. Started amantadine last night. And also continued Keppra per recommendations from neurologist. 07/02-encephalopathic but follows simple commands, mild leukocytosis today. Slo wly advancing diet-per surgery. 07/03-improving encephalopathy, tolerating diet and supplemental tube feeding, still afib and tachycardic-resumed home cardizem dose. Head: Atraumatic, normal inspection. Eyes: normal appearance, no scleral icterus. Neck: full ROM Respiratory: no respiratory distress. Cardiovascular: normal rate and rhythm, S1, S2. GI/Abdominal: NG tube, tube feeds, soft abdomen, nontender, no guarding. Extremities: full range of motion, nontender. Neurological: CN II-XII intact, intact motor, intact sensation. Psychiatric: confused Skin: warm, normal color Constitutional Vitals: Vital Signs Temp Pulse Resp BP Pulse Ox 98 F 108 H 22 155/80 92 07/03/20 12:00 07/03/20 01:59 07/03/20 14:00 07/03/20 14:00 07/03/20 14:00 Period Temp Pulse Resp BP Sys/Weinstein Pulse Ox Last 24 Hr 97.6 F-98.7 F 108-133 16-42 111-189/43-115 92-99 Intake and Output 07/03/20 07/03/20 07/03/20 05:59 13:59 21:59 Intake Total 2037 420 Output Total 350 Balance 1687 420 Intake & Output: Intake & Output 07/03/20 07/03/20 07/03/20 05:59 13:59 21:59 Intake Total 2037 420 Output Total 350 Balance 1687 420 Intake: IV 1064 110 NaCl 0.9% W/KCl 20Meq 1000ML 1, 954 000 ml @ 75 mls/hr IV .[id number] [facility] Rx#:[id number] Keppra 1,000 mg In Sodium 110 110 Chloride 0.9% 100 ml @ 200 mls/ hr IV Q12 [facility] Rx#:[id number] Oral 0 Tube Feeding 533 270 GI Tube Flush 350 40 NG Tube Flush 90 NG/OG 90 Output: Urine Catheter Amount 350 Other: Urine Appearance Clear Urine Color Dark Yellow Urine Odor Normal Stool Size Large Stool Color Yellow Blood Tinged Stool Consistency Watery Loose # Bowel Movements 1 # of times incontinent of 3 Bowels OBJ DATA Labs CBC & Chem 7: 07/02/20 05:45 07/03/20 05:10 Labs: Abnormal Lab Results 07/03/20 07/02/20 07/02/20 05:10 05:45 05:45 WBC RBC Hgb Hct MCH MCHC RDW MPV Lymph % (Auto) [place] % (Auto) Lymph # (Auto) [place] # (Auto) Lymphocytes % RBC Morphology Hypochromasia Anisocytosis Microcytosis Potassium Creatinine Glucose 235 H 178 H 173 H Uric Acid 2.2 L 2.2 L Phosphorus 2.0 L Lactate Dehydrogenase 316 H Albumin 2.6 L 2.9 L Globulin 3.8 H Albumin/Globulin Ratio 0.7 L 0.9 L Prealbumin Triglycerides 156 H CSF Glucose CSF Total Protein 07/02/20 07/01/20 07/01/20 05:45 14:42 05:56 WBC 11.6 H RBC 3.92 L 3.94 L Hgb 10.0 L 10.3 L Hct 32.7 L 32.9 L MCH 25.5 L MCHC 30.6 L RDW 15.3 H 15.5 H MPV 10.9 H 11.1 H Lymph % (Auto) 9.3 L [place] % (Auto) 13.6 H Lymph # (Auto) 0.94 L [place] # (Auto) 1.37 H Lymphocytes % 11 L RBC Morphology Abnormal A Hypochromasia Few A Anisocytosis 1+ A Microcytosis Few A Potassium Creatinine 0.5 L Glucose 201 H Uric Acid 2.2 L Phosphorus 1.9 L Lactate Dehydrogenase Albumin 2.8 L Globulin Albumin/Globulin Ratio 0.9 L Prealbumin 5.4 L Triglycerides CSF Glucose CSF Total Protein 07/01/20 06/30/20 05:55 15:40 WBC RBC Hgb Hct MCH MCHC RDW MPV Lymph % (Auto) [place] % (Auto) Lymph # (Auto) [place] # (Auto) Lymphocytes % RBC Morphology Hypochromasia Anisocytosis Microcytosis Potassium 3.0 L Creatinine Glucose 139 H Uric Acid Phosphorus Lactate Dehydrogenase Albumin Globulin Albumin/Globulin Ratio Prealbumin Triglycerides CSF Glucose 96 H CSF Total Protein 73.0 H Meds: Medications Amantadine HCl (Amantadine Hcl 100 Mg Capsule) 100 mg PO BID [facility] Last Admin: 07/03/20 08:02 Dose: 100 mg Documented by: Dextrose (Dextrose 50% 50 Ml Vial) 0 ml IV UD PRN PRN Reason: Hypoglycemia Diagnostic Test (Pha) (Accu-Chek 1 Each Strip) 1 each FS Q6 [facility]; Protocol Last Admin: 07/03/20 13:23 Dose: 1 each Documented by: Diltiazem HCl (Diltiazem 120 Mg Cap.Xl.24h) 120 mg PO DAILY [facility] Last Admin: 07/03/20 14:50 Dose: 120 mg Documented by: Diltiazem HCl (Diltiazem 180 Mg Cap.Xl.24h) 180 mg PO DAILY [facility] Last Admin: 07/03/20 14:51 Dose: 180 mg Documented by: Docusate Sodium (Docusate Sodium 50 Mg/5 Ml Oral.Torie) 100 mg PT BID [facility] Last Admin: 07/03/20 08:02 Dose: Not Given Documented by: Duloxetine HCl (Duloxetine 30 Mg Capsule) 60 mg PT HS [facility] Last Admin: 07/02/20 21:14 Dose: 60 mg Documented by: Enoxaparin Sodium (Enoxaparin 40 Mg/0.4 Ml Syringe) 40 mg SQ DAILY [facility] Last Admin: 07/03/20 08:02 Dose: 40 mg Documented by: Glucose (Dextrose 31 Gm Oral.Susp) 15 gm PO PRN PRN PRN Reason: Hypoglycemia Hydralazine HCl (Hydralazine 20 Mg/Ml Vial) 0 mg IV Q4HP PRN PRN Reason: Hypertension Last Admin: 07/02/20 21:16 Dose: 20 mg Documented by: Hydromorphone HCl (Hydromorphone 2 Mg Tablet) 2 mg PO Q4HP PRN; Protocol PRN Reason: Per Pain Protocol Last Admin: 07/02/20 10:34 Dose: 2 mg Documented by: Hydromorphone HCl (Hydromorphone 0.5 Mg/0.5 Ml Syringe) 0.5 mg IV Q2HP PRN; Protocol PRN Reason: Per Pain Protocol Last Admin: 07/03/20 08:42 Dose: 0.5 mg Documented by: Potassium Chloride/Sodium Chloride (Nacl 0.9% W/Kcl 20meq 1000ml) 1,000 mls @ 75 mls/hr IV .[id number] [facility] Last Admin: 07/03/20 05:23 Dose: 75 mls/hr Documented by: Levetiracetam 1,000 mg/ Sodium (Chloride) 110 mls @ 200 mls/hr IV Q12 [facility] Last Infusion: 07/03/20 09:20 Dose: Infused Documented by: Insulin Human Lispro (Insulin Lispro 1 Unit/0.01 Ml Unit) 0 unit SQ Q6 [facility]; Protocol Last Admin: 07/03/20 13:23 Dose: 6 units Documented by: Melatonin (Melatonin 3 Mg Tablet) 6 mg PO QHS [facility] Last Admin: 07/02/20 21:14 Dose: 6 mg Documented by: Metoprolol Tartrate (Metoprolol Tartrate 5 Mg/5 Ml Vial) 5 mg IV Q2HP PRN PRN Reason: Tachyarrhythmias, HR > 110 bpm Last Admin: 07/03/20 13:01 Dose: 5 mg Documented by: Morphine Sulfate (Morphine 2 Mg/Ml Vial) 2 mg IV Q5MIN PRN; Protocol PRN Reason: abd pain Ondansetron HCl (Ondansetron 4 Mg/2 Ml Vial) 4 mg IV Q6HP PRN PRN Reason: Nausea And Vomiting Last Admin: 06/30/20 22:17 Dose: 4 mg Documented by: Pantoprazole Sodium (Pantoprazole 40 Mg Vial) 40 mg IV BIDAC [facility] Last Admin: 07/03/20 06:56 Dose: 40 mg Documented by: Potassium Chloride (Potassium Chloride 20 Meq/15 Ml Ml) 15 meq PT BIDCC [facility] Last Admin: 07/03/20 08:02 Dose: 15 meq Documented by: Pregabalin (Pregabalin 100 Mg Capsule) 200 mg PO BID [facility] Last Admin: 07/03/20 08:01 Dose: 200 mg Documented by: Senna (Sennosides 1 Tablet) 2 tab PO HS [facility] Last Admin: 07/02/20 21:14 Dose: 2 tab Documented by: Sodium Chloride (0.9 % Sodium Chloride 10 Ml Syringe) 10 ml IV Q8 [facility] Last Admin: 07/03/20 05:23 Dose: 10 ml Documented by: A/P Narrative A/P Narrative: Assessment: 70-year-old female history of hypertension, diabetes mellitus type 2, atrial fibrillation on apixaban, COPD, multiple sclerosis on amantadine, GERD, chronic pain on opioids, depression admitted for rectal bleed felt to be from fecal impaction and later developed encephalopathy of uncertain etiology. Hospitalist were consulted for encephalopathy. 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 She did get ativan for some rads testing over the past several days. -abg no co retention; CT/MRI no acute, old infarcts -CSF unremarkable, metabolic state stable -seems to be improving *A. fib RVR: improving *Rectal bleed from fecal impaction: resolved *Ileus: resolved *COPD(): *MS: on amantadine *Depression: *Chronic opioid use: *DM: *GERD: *hypokalemia: improved P: -hold sedating meds -empiric keppra per neurology 1000bid, f/u with neurology -continue home amantadine and home pych meds via NGT -cont home diltiazem, consider adding BB -IVF's, TF's per surgery -cont home psych meds -SSI -lasix prn -electrolyte replacement prn -home ppi -ppx: per surgery (lovenox) Time Spent With Patient Time: Total time spent is greater than 50% in coordination of care (as docum ented) at patient's floor/unit and/or counseling patient: QUALITY Stroke Symptom Onset Unknown: No VTE Deep Vein Thrombosis/Pulmonary Embolism Present on Admission: No
[2020-07-03] MEDS: hydrALAZINE 20 MG/ML VIAL IV PRN (20:28)
[2020-07-03] MEDS: MELATONIN 3 MG TABLET PO SCH (20:49)
[2020-07-03] MEDS: DULoxetine 30 MG CAPSULE PT SCH (20:50)
[2020-07-03] MEDS: SENNOSIDES 1 TABLET PO SCH (20:54)
[2020-07-04] MEDS: INSULIN LISPRO 1 UNIT/0.01 ML UNIT SQ SCH ×4 (00:15→18:00)
[2020-07-04] MEDS: NACL 0.9% W/KCL 20MEQ 1,000 ML IV SCH ×3 (04:41→21:24)
[2020-07-04] MEDS: HYDROmorphone 0.5 MG/0.5 ML SYRINGE IV PRN ×2 (05:00→16:11)
[2020-07-04] MEDS: 0.9 % SODIUM CHLORIDE 10 ML SYRINGE IV SCH ×3 (05:01→21:09)
[2020-07-04] MEDS: METOPROLOL TARTRATE 5 MG/5 ML VIAL IV PRN ×2 (06:41→09:00)
[2020-07-04 07:40] LABS: ALT/SGPT 9 U/L (<40); AST/SGOT 12 U/L (<32); Albumin 2.5 gm/dL (3.2-5.2); Albumin/Globulin Ratio 0.7 (1.0-2.3); Alkaline Phosphatase 91 U/L (39-117); Bilirubin,Direct < 0.2 mg/dL (0-0.3); Bilirubin,Total 0.2 mg/dL (0.1-1.0); Blood Urea Nitrogen 12 mg/dL (8-23); Calcium 9.4 mg/dL (8.6-10.4); Carbon Dioxide 25 mmol/L (22-30); Chloride 106 mmol/L (96-108); Globulin 3.6 gm/dL (2.2-3.7); Glomerular Filtration Rate 92; Glucose 221 mg/dL (70-105); Lactate Dehydrogenase 247 U/L (135-225); Phosphorous 3.2 mg/dL (2.5-4.5); Triglycerides 164 mg/dL (<150); Uric Acid 2.2 mg/dL (2.5-8.0)
[2020-07-04] MEDS: PREGABALIN 100 MG CAPSULE PO SCH ×2 (08:59→21:09)
[2020-07-04] MEDS: DILTIAZEM 180 MG CAP.XL.24H PO SCH (09:00)
[2020-07-04] MEDS: HYDROmorphone 2 MG TABLET PO PRN (09:00)
[2020-07-04] MEDS: AMANTADINE HCL 100 MG CAPSULE PO SCH ×2 (09:00→21:08)
[2020-07-04] MEDS: DILTIAZEM 120 MG CAP.XL.24H PO SCH (09:00)
[2020-07-04] MEDS: POTASSIUM CHLORIDE 20 MEQ/15 ML ML PT SCH ×2 (09:00→16:15)
[2020-07-04] MEDS: ENOXAPARIN 40 MG/0.4 ML SYRINGE SQ SCH (09:01)
[2020-07-04] MEDS: PANTOPRAZOLE 40 MG VIAL IV SCH ×2 (09:01→16:14)
[2020-07-04] MEDS ORDERED: BENZOCAINE/MENTHOL 1 LOZENGE PO PRN (09:19)
--- NOTE | 2020-07-04 09:19 | General Surgery Progress Note ---
SUBJECTIVE Subjective Patient information: Note initiated : 07/04/20 at 9:17 am Service Date, if different from initiated Date: [] Patient: Rhea Miles 70 y/o F admitted on 06/24/20 for rectal bleeding. Chief Complaint: [] Principal diagnosis: Fecal impaction; rectal bleeding due to mucosal tear; atrial fibrillation Interval history: Patient is improving slightly each day. Though she still has significant mental status deficiency she is more alert and aware than yesterday. She is tolerating a little bit of oral feedings, she is tolerating tube feeds at 50 cc an hour.. She is having multiple liquid bowel movements per day, these are less liquid than they were yesterday. When questioned she does not complain of any abdominal discomfort. Constitutional Vitals: Vital Signs Temp Pulse Resp BP Pulse Ox 98 F 108 H 26 H 155/97 92 07/04/20 04:00 07/03/20 01:59 07/04/20 06:08 07/04/20 06:08 07/04/20 06:08 Period Temp Pulse Resp BP Sys/Weinstein Pulse Ox Last 24 Hr 98 F-98.8 F 17-37 125-175/67-129 92-99 Intake and Output 07/03/20 07/04/20 07/04/20 21:59 05:59 13:59 Intake Total 2014 287 5639 Output Total 1850 1300 Balance -410 -811 1000 Weight 185 lb 12.8 oz Intake & Output: Intake & Output 07/03/20 07/04/20 07/04/20 21:59 05:59 13:59 Intake Total 3358 147 1340 Output Total 1850 1300 Balance -410 -811 1000 Weight 185 lb 12.8 oz Intake: IV 1110 1000 NaCl 0.9% W/KCl 20Meq 1000ML 1, 1000 1000 000 ml @ 75 mls/hr IV .[id number] [facility] Rx#:[id number] Keppra 1,000 mg In Sodium 110 Chloride 0.9% 100 ml @ 200 mls/ hr IV Q12 [facility] Rx#:[id number] Tube Feeding 240 489 GI Tube Flush 30 NG Tube Flush 60 NG/OG 60 Output: Urine Catheter Amount 1850 1300 Other: Urine Appearance Clear Clear Urine Color Pale Pale Stool Size Large Small Moderate Stool Color Brown Brown Brown Yellow Yellow Stool Consistency Loose Soft Loose Loose # Voids 1 # Bowel Movements 1 # of times incontinent of 1 1 Bowels General appearance: cooperative and no acute distress GI/Abdominal GI/Abdominal exam: Present soft; Absent distended and tenderness A/P Narrative A/P Narrative: Gradually improving, she is tolerating some p.o. intake however she feels that her throat is sore which is making it difficult. We will give Cepacol lozenges. Continue work on eating, will decrease tube feeds as diet increases. Time Spent With Patient Time: Total time spent is greater than 50% in coordination of care (as documented) at patient's floor/unit and/or counseling patient:
[2020-07-04] MEDS: DOCUSATE SODIUM 50 MG/5 ML ORAL.SOL PT SCH ×2 (09:36→20:55)
[2020-07-04] MEDS: levETIRAcetam 1,000 MG in 0.9 % SODIUM CHLORIDE 100 ML IV SCH ×2 (10:23→21:09)
--- NOTE | 2020-07-04 14:46 | XRay Report ---
CLINICAL INFORMATION: FOLLOW -UP OF SMALL BOWEL OBSTRUCTION and ileus COMPARISON: 07/03/2020 FINDINGS: NG tube is stable satisfactory position. The GI tract is decompressed with small amounts of gas seen only in the transverse and ascending colon. IMPRESSION: Resolution of ileus. Decompressed GI tract. Interpreted and Authenticated by: Kushal Draper 07/04/20
--- NOTE | 2020-07-04 16:58 | Internal Med Progress Note ---
SUBJECTIVE Subjective Patient information: Note initiated : 07/04/20 at 4:55 pm Service Date, if different from initiated Date: [] Patient: Rhea Miles 70 y/o F admitted on 06/24/20 for rectal bleeding. Chief Complaint: [] Principal diagnosis: Fecal impaction; rectal bleeding due to mucosal tear; atrial fibrillation Interval history: This patient was admitted on for rectal bleed secondary to fecal impaction. That has been treated and she is had multiple bowel movements improvement. During course her A. fib went into RVR and was put on a Cardizem drip. And mentally she has not responded with poor mentation. Per nurse she appeared to be with appropriate mental status on nurse intake but has since had poor men tation. And does not appear to be safe to take oral medications and so she has not been getting the oral medications. At bedside when I try to interact with patient she seems to say only "oh yeah, o h yeah", but nothing else. 06/29 Patient is back from CT. She did get some Ativan prior to the procedure. She seem to answer yes and no to a few of my questions and I thought that she moved the toe to command wants but that I could not get her to repeat a follow other commands. She did open her eyes to sternal rub not to voice. 06/30 No real change in mentation. MRI unremarkable yesterday. Scheduled for LP this morning. He seems to have moments of clarity and then will go back to confusio n. *per nurse she was a little more interactive this evening with her pharmacy customer care specialist but when i returned to see her at bedside she was back at her usual mental state. Empiric keppra loading dose given this morning. I discussed the case with [place] neurologist Dr. Jean. Relayed the CSF/Imaging/lab findings/etc... He recommended another loading dose of Keppra 2grams tonight and then 1000 bid. amantadine w/d could also be part of it. This was started tonight. 07/01 Patient a little more responsive today. Seem to move feet to command and answer a few simple questions as to where she was out in order full name is. Started amantadine last night. And also continued Keppra per recommendations from neurologist. 07/02-encephalopathic but follows simple commands, mild leukocytosis today. Slo wly advancing diet-per surgery. 07/03-improving encephalopathy, tolerating diet and supplemental tube feeding, still afib and tachycardic-resumed home cardizem dose. 07/04-eating and having bowel movements, probably near baseline for mental status, added low dose lopressor for rate control Head: Atraumatic, normal inspection. Eyes: normal appearance, no scleral icterus. Neck: full ROM Respiratory: no respiratory distress. Cardiovascular: tachycardia and rhythm, S1, S2. GI/Abdominal: NG tube, tube feeds, soft abdomen, nontender, no guarding. Extremities: full range of motion, nontender. Neurological: CN II-XII intact, intact motor, intact sensation. Psychiatric: normal mood Skin: warm, normal color Constitutional Vitals: Vital Signs Temp Pulse Resp BP Pulse Ox 98.2 F 108 H 21 150/94 94 07/04/20 12:00 07/03/20 01:59 07/04/20 14:01 07/04/20 14:01 07/04/20 14:01 Period Temp Pulse Resp BP Sys/Weinstein Pulse Ox Last 24 Hr 97.6 F-98.8 F 17-27 125-175/67-129 92-99 Intake and Output 07/04/20 07/04/20 07/04/20 05:59 13:59 21:59 Intake Total 489 1410 240 Output Total 1300 Balance -811 1410 240 Intake & Output: Intake & Output 07/04/20 07/04/20 07/04/20 05:59 13:59 21:59 Intake Total 489 1410 240 Output Total 1300 Balance -811 1410 240 Intake: IV 1110 NaCl 0.9% W/KCl 20Meq 1000ML 1, 1000 000 ml @ 75 mls/hr IV .[id number] [facility] Rx#:[id number] Keppra 1,000 mg In Sodium 110 Chloride 0.9% 100 ml @ 200 mls/ hr IV Q12 [facility] Rx#:[id number] Tube Feeding 489 240 240 GI Tube Flush 60 Output: Urine Catheter Amount 1300 Other: Urine Appearance Clear Uretheral (Saleh) Clear Urine Color Pale Uretheral (Saleh) Bright Yellow Stool Size Small Moderate Stool Color Brown Brown Yellow Stool Consistency Soft Loose Loose # Voids 1 # Bowel Movements 1 # of times incontinent of 1 Bowels OBJ DATA Labs CBC & Chem 7: 07/02/20 05:45 07/04/20 04:50 Labs: Abnormal Lab Results 07/04/20 07/03/20 07/02/20 04:50 05:10 05:45 WBC RBC Hgb Hct MCH MCHC RDW MPV Lymphocytes % RBC Morphology Hypochromasia Anisocytosis Microcytosis Glucose 221 H 235 H 178 H Uric Acid 2.2 L 2.2 L 2.2 L Phosphorus 2.0 L Lactate Dehydrogenase 247 H 316 H Albumin 2.5 L 2.6 L 2.9 L Globulin 3.8 H Albumin/Globulin Ratio 0.7 L 0.7 L 0.9 L Triglycerides 164 H 156 H 07/02/20 07/02/20 05:45 05:45 WBC 11.6 H RBC 3.92 L Hgb 10.0 L Hct 32.7 L MCH 25.5 L MCHC 30.6 L RDW 15.3 H MPV 10.9 H Lymphocytes % 11 L RBC Morphology Abnormal A Hypochromasia Few A Anisocytosis 1+ A Microcytosis Few A Glucose 173 H Uric Acid Phosphorus Lactate Dehydrogenase Albumin Globulin Albumin/Globulin Ratio Triglycerides Meds: Medications Amantadine HCl (Amantadine Hcl 100 Mg Capsule) 100 mg PO BID [facility] Last Admin: 07/04/20 09:00 Dose: 100 mg Documented by: Dextrose (Dextrose 50% 50 Ml Vial) 0 ml IV UD PRN PRN Reason: Hypoglycemia Diagnostic Test (Pha) (Accu-Chek 1 Each Strip) 1 each FS Q6 [facility]; Protocol Last Admin: 07/04/20 12:24 Dose: 1 each Documented by: Diltiazem HCl (Diltiazem 120 Mg Cap.Xl.24h) 120 mg PO DAILY [facility] Last Admin: 07/04/20 09:00 Dose: 120 mg Documented by: Diltiazem HCl (Diltiazem 180 Mg Cap.Xl.24h) 180 mg PO DAILY [facility] Last Admin: 07/04/20 09:00 Dose: 180 mg Documented by: Docusate Sodium (Docusate Sodium 50 Mg/5 Ml Oral.Torie) 100 mg PT BID [facility] Last Admin: 07/04/20 09:36 Dose: Not Given Documented by: Duloxetine HCl (Duloxetine 30 Mg Capsule) 60 mg PT HS [facility] Last Admin: 07/03/20 20:50 Dose: 60 mg Documented by: Enoxaparin Sodium (Enoxaparin 40 Mg/0.4 Ml Syringe) 40 mg SQ DAILY [facility] Last Admin: 07/04/20 09:01 Dose: 40 mg Documented by: Glucose (Dextrose 31 Gm Oral.Susp) 15 gm PO PRN PRN PRN Reason: Hypoglycemia Hydralazine HCl (Hydralazine 20 Mg/Ml Vial) 0 mg IV Q4HP PRN PRN Reason: Hypertension Last Admin: 07/03/20 20:28 Dose: 20 mg Documented by: Hydromorphone HCl (Hydromorphone 2 Mg Tablet) 2 mg PO Q4HP PRN; Protocol PRN Reason: Per Pain Protocol Last Admin: 07/04/20 09:00 Dose: 2 mg Documented by: Hydromorphone HCl (Hydromorphone 0.5 Mg/0.5 Ml Syringe) 0.5 mg IV Q2HP PRN; Protocol PRN Reason: Per Pain Protocol Last Admin: 07/04/20 16:11 Dose: 0.5 mg Documented by: Potassium Chloride/Sodium Chloride (Nacl 0.9% W/Kcl 20meq 1000ml) 1,000 mls @ 75 mls/hr IV .[id number] [facility] Last Admin: 07/04/20 08:11 Dose: 75 mls/hr Documented by: Levetiracetam 1,000 mg/ Sodium (Chloride) 110 mls @ 200 mls/hr IV Q12 [facility] Last Infusion: 07/04/20 10:56 Dose: Infused Documented by: Insulin Human Lispro (Insulin Lispro 1 Unit/0.01 Ml Unit) 0 unit SQ Q6 [facility]; Protocol Last Admin: 07/04/20 12:24 Dose: 6 units Documented by: Melatonin (Melatonin 3 Mg Tablet) 6 mg PO QHS [facility] Last Admin: 07/03/20 20:49 Dose: 6 mg Documented by: Metoprolol Tartrate (Metoprolol Tartrate 25 Mg Tablet) 25 mg PO BID [facility] Metoprolol Tartrate (Metoprolol Tartrate 5 Mg/5 Ml Vial) 5 mg IV Q2HP PRN PRN Reason: Tachyarrhythmias, HR > 110 bpm Last Admin: 07/04/20 09:00 Dose: 5 mg Documented by: Morphine Sulfate (Morphine 2 Mg/Ml Vial) 2 mg IV Q5MIN PRN; Protocol PRN Reason: abd pain Ondansetron HCl (Ondansetron 4 Mg/2 Ml Vial) 4 mg IV Q6HP PRN PRN Reason: Nausea And Vomiting Last Admin: 06/30/20 22:17 Dose: 4 mg Documented by: Pantoprazole Sodium (Pantoprazole 40 Mg Vial) 40 mg IV BIDAC [facility] Last Admin: 07/04/20 16:14 Dose: 40 mg Documented by: Potassium Chloride (Potassium Chloride 20 Meq/15 Ml Ml) 15 meq PT BIDCC [facility] Last Admin: 07/04/20 16:15 Dose: 15 meq Documented by: Pregabalin (Pregabalin 100 Mg Capsule) 200 mg PO BID [facility] Last Admin: 07/04/20 08:59 Dose: 200 mg Documented by: Senna (Sennosides 1 Tablet) 2 tab PO HS [facility] Last Admin: 07/03/20 20:54 Dose: Not Given Documented by: Sodium Chloride (0.9 % Sodium Chloride 10 Ml Syringe) 10 ml IV Q8 [facility] Last Admin: 07/04/20 12:25 Dose: 10 ml Documented by: Throat Lozenges (Benzocaine/Menthol 1 Lozenge) 1 lozenge PO PRN PRN PRN Reason: Sore Throat Last Admin: 07/04/20 16:35 Dose: 1 lozenge Documented by: A/P Narrative A/P Narrative: Assessment: 70-year-old female history of hypertension, diabetes mellitus type 2, atrial fibrillation on apixaban, COPD, multiple sclerosis on amantadine, GERD, chronic pain on opioids, depression admitted for rectal bleed felt to be from fecal impaction and later developed encephalopathy of uncertain etiology. Hospitalist were consulted for encephalopathy. 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 She did get ativan for some rads testing over the past several days. -abg no co retention; CT/MRI no acute, old infarcts -CSF unremarkable, metabolic state stable -seems to be improving *A. fib RVR: improving *Rectal bleed from fecal impaction: resolved *Ileus: resolved *COPD(): *MS: on amantadine *Depression: *Chronic opioid use: *DM: *GERD: *hypokalemia: improved P: -hold sedating meds -empiric keppra per neurology 1000bid, f/u with neurology -continue home amantadine and home pych meds via NGT -cont home diltiazem -add lopressor BID -IVF's, TF's per surgery -cont home psych meds -SSI -lasix prn -electrolyte replacement prn -home ppi -ppx: per surgery (lovenox) Time Spent With Patient Time: Total time spent is greater than 50% in coordination of care (as documented) at patient's floor/unit and/or counseling patient: QUALITY Stroke Symptom Onset Unknown: No VTE Deep Vein Thrombosis/Pulmonary Embolism Present on Admission: No
[2020-07-04] MEDS ORDERED: METOPROLOL TARTRATE 25 MG TABLET PO SCH (21:00)
[2020-07-04] MEDS: MELATONIN 3 MG TABLET PO SCH (21:08)
[2020-07-04] MEDS: DULoxetine 30 MG CAPSULE PT SCH (21:08)
[2020-07-04] MEDS: SENNOSIDES 1 TABLET PO SCH (21:09)
[2020-07-05] MEDS: INSULIN LISPRO 1 UNIT/0.01 ML UNIT SQ SCH ×4 (00:52→21:08)
[2020-07-05] MEDS ORDERED: LORazepam 2 MG/ML VIAL ONE (01:55)
[2020-07-05] MEDS: HYDROmorphone 0.5 MG/0.5 ML SYRINGE IV PRN (01:59)
[2020-07-05] MEDS: METOPROLOL TARTRATE 5 MG/5 ML VIAL IV PRN (05:53)
[2020-07-05] MEDS: 0.9 % SODIUM CHLORIDE 10 ML SYRINGE IV SCH ×4 (05:58→21:09)
--- NOTE | 2020-07-05 07:14 | XRay Report ---
INDICATION: FOLLOW -UP OF SMALL BOWEL OBSTRUCTION and ileus TECHNIQUE: Supine and upright abdomen. COMPARISON: Previous examinations dated 07/04/2020, 07/03/2020, 07/02/2020 FINDINGS:Esophagogastric tube with its tip in the gastric antrum, unchanged. There are surgical clips in the right upper abdominal quadrant There is gas within the colon. No significant distention. No no small bowel dilatation. Bowel gas pattern is considered nonspecific and nonobstructive. No biliary or portal venous gas. No pneumoperitoneum. IMPRESSION: 1. No change in esophagogastric tube position 2. Unremarkable bowel gas pattern Interpreted and Authenticated by: Kushal Rider 07/05/20
[2020-07-05] MEDS ORDERED: DEXTROSE 31 GM ORAL.SUSP PO PRN ×2 (07:47→13:56)
[2020-07-05] MEDS ORDERED: DEXTROSE 50% 50 ML VIAL IV PRN ×2 (07:47→13:56)
[2020-07-05] MEDS: PANTOPRAZOLE 40 MG VIAL IV SCH ×2 (08:12→17:13)
[2020-07-05] MEDS: POTASSIUM CHLORIDE 20 MEQ/15 ML ML PT SCH ×2 (08:55→17:11)
[2020-07-05] MEDS: DILTIAZEM 120 MG CAP.XL.24H PO SCH (08:55)
[2020-07-05] MEDS: ENOXAPARIN 40 MG/0.4 ML SYRINGE SQ SCH (08:55)
[2020-07-05] MEDS: AMANTADINE HCL 100 MG CAPSULE PO SCH ×2 (08:56→21:08)
[2020-07-05] MEDS: DILTIAZEM 180 MG CAP.XL.24H PO SCH (08:56)
[2020-07-05] MEDS: DOCUSATE SODIUM 50 MG/5 ML ORAL.SOL PT SCH (08:57)
[2020-07-05] MEDS: levETIRAcetam 1,000 MG in 0.9 % SODIUM CHLORIDE 100 ML IV SCH (08:58)
[2020-07-05] MEDS ORDERED: INSULIN GLARGINE, HUMAN 1 UNIT/0.01 ML SQ SCH (09:00)
[2020-07-05] MEDS ORDERED: METOPROLOL TARTRATE 25 MG TABLET PO SCH ×2 (09:00→21:00)
[2020-07-05] MEDS: PREGABALIN 100 MG CAPSULE PO SCH ×2 (09:01→21:00)
[2020-07-05] MEDS: NACL 0.9% W/KCL 20MEQ 1,000 ML IV SCH ×2 (09:02→14:02)
[2020-07-05] MEDS: HYDROmorphone 2 MG TABLET PO PRN (09:30)
[2020-07-05] MEDS ORDERED: INSULIN LISPRO 1 UNIT/0.01 ML UNIT SQ SCH (11:30)
--- NOTE | 2020-07-05 13:29 | Internal Med Progress Note ---
SUBJECTIVE Subjective Patient information: Note initiated : 07/05/20 at 1:27 pm Service Date, if different from initiated Date: [] Patient: Rhea Miles 70 y/o F admitted on 06/24/20 for rectal bleeding. Chief Complaint: [] Principal diagnosis: Fecal impaction; rectal bleeding due to mucosal tear; atrial fibrillation Interval history: This patient was admitted on for rectal bleed secondary to fecal impaction. That has been treated and she is had multiple bowel movements improvement. During course her A. fib went into RVR and was put on a Cardizem drip. And mentally she has not responded with poor mentation. Per nurse she appeared to be with appropriate mental status on nurse intake but has since had poor men tation. And does not appear to be safe to take oral medications and so she has not been getting the oral medications. At bedside when I try to interact with patient she seems to say only "oh yeah, o h yeah", but nothing else. 06/29 Patient is back from CT. She did get some Ativan prior to the procedure. She seem to answer yes and no to a few of my questions and I thought that she moved the toe to command wants but that I could not get her to repeat a follow other commands. She did open her eyes to sternal rub not to voice. 06/30 No real change in mentation. MRI unremarkable yesterday. Scheduled for LP this morning. He seems to have moments of clarity and then will go back to confusio n. *per nurse she was a little more interactive this evening with her healthcare interpreter but when i returned to see her at bedside she was back at her usual mental state. Empiric keppra loading dose given this morning. I discussed the case with [place] neurologist Dr. Jean. Relayed the CSF/Imaging/lab findings/etc... He recommended another loading dose of Keppra 2grams tonight and then 1000 bid. amantadine w/d could also be part of it. This was started tonight. 07/01 Patient a little more responsive today. Seem to move feet to command and answer a few simple questions as to where she was out in order full name is. Started amantadine last night. And also continued Keppra per recommendations from neurologist. 07/02-encephalopathic but follows simple commands, mild leukocytosis today. Slo wly advancing diet-per surgery. 07/03-improving encephalopathy, tolerating diet and supplemental tube feeding, still afib and tachycardic-resumed home cardizem dose. 07/04-eating and having bowel movements, probably near baseline for mental status, added low dose lopressor for rate control 07/05-increased lopressor, discussed risk/benefits of anticoagulation, changed from IV to PO Keppra, overall has improved significantly, TTE ordered Head: Atraumatic, normal inspection. Eyes: normal appearance, no scleral icterus. Neck: full ROM Respiratory: no respiratory distress. Cardiovascular: tachycardia and rhythm, S1, S2. GI/Abdominal: NG tube, tube feeds, soft abdomen, nontender, no guarding. Extremities: full range of motion, nontender. Neurological: CN II-XII intact, intact motor, intact sensation. Psychiatric: normal mood Skin: warm, normal color Constitutional Vitals: Vital Signs Temp Pulse Resp BP Pulse Ox 97.6 F 108 H 14 138/93 95 07/05/20 13:11 07/03/20 01:59 07/05/20 13:11 07/05/20 13:11 07/05/20 13:11 Period Temp Pulse Resp BP Sys/Weinstein Pulse Ox Last 24 Hr 97.6 F-98.4 F 14-26 135-177/75-133 89-98 Intake and Output 07/04/20 07/05/20 07/05/20 21:59 05:59 13:59 Intake Total 1291 960 Output Total 2450 900 Balance 1291 -1490 -900 Weight 84.005 kg Intake & Output: Intake & Output 07/04/20 07/05/20 07/05/20 21:59 05:59 13:59 Intake Total 1291 960 Output Total 2450 900 Balance 1291 -1490 -900 Weight 84.005 kg Intake: IV 991 110 NaCl 0.9% W/KCl 20Meq 1000ML 1, 991 000 ml @ 75 mls/hr IV .[id number] [facility] Rx#:[id number] Keppra 1,000 mg In Sodium 110 Chloride 0.9% 100 ml @ 200 mls/ hr IV Q12 [facility] Rx#:[id number] Tube Feeding 240 760 GI Tube Flush 60 90 Output: Urine Catheter Amount 2450 900 Other: Urine Appearance Clear Urine Color Pale Stool Size Small # Bowel Movements 1 1 # of times incontinent of 1 Bowels OBJ DATA Labs CBC & Chem 7: 07/02/20 05:45 07/04/20 04:50 Labs: Abnormal Lab Results 07/04/20 07/03/20 04:50 05:10 Glucose 221 H 235 H Uric Acid 2.2 L 2.2 L Lactate Dehydrogenase 247 H 316 H Albumin 2.5 L 2.6 L Globulin 3.8 H Albumin/Globulin Ratio 0.7 L 0.7 L Triglycerides 164 H 156 H Meds: Medications Amantadine HCl (Amantadine Hcl 100 Mg Capsule) 100 mg PO BID [facility] Last Admin: 07/05/20 08:56 Dose: 100 mg Documented by: Dextrose (Dextrose 50% 50 Ml Vial) 0 ml IV UD PRN PRN Reason: Hypoglycemia Diagnostic Test (Pha) (Accu-Chek 1 Each Strip) 1 each FS ACHS [facility] Last Admin: 07/05/20 12:54 Dose: 1 each Documented by: Diltiazem HCl (Diltiazem 120 Mg Cap.Xl.24h) 120 mg PO DAILY [facility] Last Admin: 07/05/20 08:55 Dose: 120 mg Documented by: Diltiazem HCl (Diltiazem 180 Mg Cap.Xl.24h) 180 mg PO DAILY [facility] Last Admin: 07/05/20 08:56 Dose: 180 mg Documented by: Docusate Sodium (Docusate Sodium 50 Mg/5 Ml Oral.Torie) 100 mg PT BID [facility] Last Admin: 07/05/20 08:57 Dose: Not Given Documented by: Duloxetine HCl (Duloxetine 30 Mg Capsule) 60 mg PT HS [facility] Last Admin: 07/04/20 21:08 Dose: 60 mg Documented by: Enoxaparin Sodium (Enoxaparin 40 Mg/0.4 Ml Syringe) 40 mg SQ DAILY [facility] Last Admin: 07/05/20 08:55 Dose: 40 mg Documented by: Glucose (Dextrose 31 Gm Oral.Susp) 15 gm PO PRN PRN PRN Reason: Hypoglycemia Hydralazine HCl (Hydralazine 20 Mg/Ml Vial) 0 mg IV Q4HP PRN PRN Reason: Hypertension Last Admin: 07/03/20 20:28 Dose: 20 mg Documented by: Hydromorphone HCl (Hydromorphone 2 Mg Tablet) 2 mg PO Q4HP PRN; Protocol PRN Reason: Per Pain Protocol Last Admin: 07/05/20 09:30 Dose: 2 mg Documented by: Hydromorphone HCl (Hydromorphone 0.5 Mg/0.5 Ml Syringe) 0.5 mg IV Q2HP PRN; Protocol PRN Reason: Per Pain Protocol Last Admin: 07/05/20 01:59 Dose: 0.5 mg Documented by: Potassium Chloride/Sodium Chloride (Nacl 0.9% W/Kcl 20meq 1000ml) 1,000 mls @ 75 mls/hr IV .[id number] [facility] Last Admin: 07/05/20 09:02 Dose: Not Given Documented by: Insulin Glargine (Insulin Glargine, Human 1 Unit/0.01 Ml) 10 unit SQ DAILY [facility] Last Admin: 07/05/20 08:56 Dose: 10 unit Documented by: Insulin Human Lispro (Insulin Lispro 1 Unit/0.01 Ml Unit) 0 unit SQ ACHS [facility]; Protocol Last Admin: 07/05/20 12:57 Dose: 2 unit Documented by: Levetiracetam (Levetiracetam 500 Mg Tablet) 500 mg PO BID [facility] Melatonin (Melatonin 3 Mg Tablet) 6 mg PO QHS [facility] Last Admin: 07/04/20 21:08 Dose: 6 mg Documented by: Metoprolol Tartrate (Metoprolol Tartrate 25 Mg Tablet) 50 mg PO BID [facility] Last Admin: 07/05/20 08:56 Dose: 50 mg Documented by: Metoprolol Tartrate (Metoprolol Tartrate 5 Mg/5 Ml Vial) 5 mg IV Q2HP PRN PRN Reason: Tachyarrhythmias, HR > 110 bpm Last Admin: 07/05/20 05:53 Dose: 5 mg Documented by: Morphine Sulfate (Morphine 2 Mg/Ml Vial) 2 mg IV Q5MIN PRN; Protocol PRN Reason: abd pain Ondansetron HCl (Ondansetron 4 Mg/2 Ml Vial) 4 mg IV Q6HP PRN PRN Reason: Nausea And Vomiting Last Admin: 06/30/20 22:17 Dose: 4 mg Documented by: Pantoprazole Sodium ([facility] 40 Mg [facility]) [facility] Admin: 07/05/20 08:12 Dose: 40 mg Documented by: Potassium Chloride (Potassium Chloride 20 Meq/15 Ml Ml) 15 meq PT BIDCC [facility] Last Admin: 07/05/20 08:55 Dose: 15 meq Documented by: Pregabalin (Pregabalin 100 Mg Capsule) 200 mg PO BID [facility] Last Admin: 07/05/20 09:01 Dose: 200 mg Documented by: Senna (Sennosides 1 Tablet) 2 tab PO HS [facility] Last Admin: 07/04/20 21:09 Dose: Not Given Documented by: Sodium Chloride (0.9 % Sodium Chloride 10 Ml Syringe) 10 ml IV Q8 [facility] Last Admin: 07/05/20 12:57 Dose: 10 ml Documented by: Throat Lozenges (Benzocaine/Menthol 1 Lozenge) 1 lozenge PO PRN PRN PRN Reason: Sore Throat Last Admin: 07/04/20 16:35 Dose: 1 lozenge Documented by: A/P Narrative A/P Narrative: Assessment: 70-year-old female history of hypertension, diabetes mellitus type 2, atrial fibrillation on apixaban, COPD, multiple sclerosis on amantadine, GERD, chronic pain on opioids, depression admitted for rectal bleed felt to be from fecal impaction and later developed encephalopathy of uncertain etiology. Hospitalist were consulted for encephalopathy. 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 She did get ativan for some rads testing over the past several days. -abg no co retention; CT/MRI no acute, old infarcts -CSF unremarkable, metabolic state stable -seems to be improving *A. fib RVR: improving *Rectal bleed from fecal impaction: resolved *Ileus: resolved *COPD(): *MS: on amantadine *Depression: *Chronic opioid use: *DM: *GERD: *hypokalemia: improved P: -hold sedating meds -empiric keppra per neurology 1000bid, f/u with neurology -continue home amantadine and home pych meds via NGT -cont home diltiazem -increase lopressor BID -TTE ordered -IVF's, TF's per surgery -cont home psych meds -SSI -lasix prn -electrolyte replacement prn -home ppi -ppx: per surgery (lovenox) Time Spent With Patient Time: Total time spent is greater than 50% in coordination of care (as documented) at patient's floor/unit and/or counseling patient: QUALITY Stroke Symptom Onset Unknown: No VTE Deep Vein Thrombosis/Pulmonary Embolism Present on Admission: No
[2020-07-05] MEDS ORDERED: BUTALB/ACETAMINOPHEN/CAFFEINE 1 TABLET PO PRN (13:32)
--- NOTE | 2020-07-05 13:47 | General Surgery Progress Note ---
SUBJECTIVE Subjective Patient information: Note initiated : 07/05/20 at 1:43 pm Service Date, if different from initiated Date: [] Patient: Rhea Miles 70 y/o F admitted on 06/24/20 for rectal bleeding. Chief Complaint: [] Principal diagnosis: Fecal impaction; rectal bleeding due to mucosal tear; atrial fibrillation; Interval history: Patient is significantly improved. She is now alert and oriented x3. She responds to all questions appropriately. She is taking p.o. full liquids and is able to feed herself. She is asking for solid foods. Her diffuse soft tissue pain has resolved. She denies abdominal pain. Her heart rate is improved with heart rate about 110 with an atrial fibrillation pattern. There has not been any rectal bleeding. She is aware that she has been hospitalized for 11 days. Constitutional Vitals: Vital Signs Temp Pulse Resp BP Pulse Ox 97.6 F 108 H 14 138/93 95 07/05/20 13:11 07/03/20 01:59 07/05/20 13:11 07/05/20 13:11 07/05/20 13:11 Period Temp Pulse Resp BP Sys/Weinstein Pulse Ox Last 24 Hr 97.6 F-98.4 F 14-26 135-177/75-133 89-98 Intake and Output 07/04/20 07/05/20 07/05/20 21:59 05:59 13:59 Intake Total 1291 960 Output Total 2450 900 Balance 1291 -1490 -900 Weight 185 lb 3.2 oz Intake & Output: Intake & Output 07/04/20 07/05/20 07/05/20 21:59 05:59 13:59 Intake Total 1291 960 Output Total 2450 900 Balance 1291 -1490 -900 Weight 185 lb 3.2 oz Intake: IV 991 110 NaCl 0.9% W/KCl 20Meq 1000ML 1, 991 000 ml @ 75 mls/hr IV .[id number] [facility] Rx#:[id number] Keppra 1,000 mg In Sodium 110 Chloride 0.9% 100 ml @ 200 mls/ hr IV Q12 [facility] Rx#:[id number] Tube Feeding 240 760 GI Tube Flush 60 90 Output: Urine Catheter Amount 2450 900 Other: Urine Appearance Clear Urine Color Pale Stool Size Small # Bowel Movements 1 1 # of times incontinent of 1 Bowels Head Head exam: Present atraumatic, normal inspection and normocephalic Eye Eye exam: Present EOMI Pupils: Present PERRL ENT ENT exam: Present mucous membranes dry and normal exam Neck Neck exam: Present full ROM; Absent lymphadenopathy, tenderness and thyromegaly Respiratory Respiratory exam: Present normal respiratory exam and CTAB; Absent accessory muscle use, rhonchi and wheezes Cardiovascular Cardiovascular exam: Present irregular rhythm, +S1, +S2 and tachycardia; Absent JVD GI/Abdominal GI/Abdominal exam: Present soft; Absent distended and tenderness Extremities Exam Extremities exam: Present calf tenderness, full ROM, normal inspection, tenderness (Tenderness of soft tissue of upper and lower extremities) and Foot pink and warm; Absent pedal edema Neurological Exam Additional comments: Patient is more mentally alert and oriented to place and time. She does follow simple commands. She is able to take oral liquids without difficulty. 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
[2020-07-05] MEDS ORDERED: HYDROmorphone 0.5 MG/0.5 ML SYRINGE IV PRN (13:56)
[2020-07-05] MEDS ORDERED: BENZOCAINE/MENTHOL 1 LOZENGE PO PRN (13:56)
[2020-07-05] MEDS ORDERED: ONDANSETRON 4 MG/2 ML VIAL IV PRN (13:56)
[2020-07-05] MEDS ORDERED: METOPROLOL TARTRATE 5 MG/5 ML VIAL IV PRN (13:56)
[2020-07-05] MEDS ORDERED: hydrALAZINE 20 MG/ML VIAL IV PRN (13:56)
[2020-07-05] MEDS: BUTALB/ACETAMINOPHEN/CAFFEINE 1 TABLET PO PRN (17:28)
[2020-07-05] MEDS: DULoxetine 30 MG CAPSULE PO SCH (20:59)
[2020-07-05] MEDS ORDERED: levETIRAcetam 500 MG TABLET PO SCH (21:00)
[2020-07-05] MEDS: levETIRAcetam 500 MG TABLET PO SCH (21:00)
[2020-07-05] MEDS: MELATONIN 3 MG TABLET PO SCH (21:00)
[2020-07-05] MEDS: SENNOSIDES 1 TABLET PO SCH (21:01)
[2020-07-05] MEDS: DOCUSATE SODIUM 100 MG CAPSULE PO SCH (21:01)
[2020-07-06] MEDS: HYDROmorphone 2 MG TABLET PO PRN ×3 (00:25→22:37)
[2020-07-06] MEDS: NACL 0.9% W/KCL 20MEQ 1,000 ML IV SCH ×2 (03:25→17:09)
[2020-07-06] MEDS: 0.9 % SODIUM CHLORIDE 10 ML SYRINGE IV SCH ×3 (05:19→21:20)
[2020-07-06] MEDS: PANTOPRAZOLE 40 MG VIAL IV SCH ×2 (07:17→17:10)
[2020-07-06 07:30] LABS: Basophils # (Auto) 0.14 K/mcL (0.00-0.20); Eosinophils % (Auto) 2.2 % (0.0-7.0); Hematocrit 39.8 % (36.0-48.0); Hemoglobin 12.3 g/dL (12.0-15.0); Lymphocytes # (Auto) 1.39 K/mcL (1.50-4.80); Lymphocytes % (Auto) 10.4 % (15.0-49.0); Mean Cell Volume 82.2 fL (80.0-100.0); Mean Corpuscular HGB Conc 30.9 g/dL (31.0-36.0); Mean Platelet Volume 10.5 fL (7.4-10.4); Monocytes # (Auto) 1.39 K/mcL (0.10-0.90); Monocytes % (Auto) 10.4 % (1.0-12.0); Platelet Count 381 K/mcL (140-440); RBC 4.84 M/mcL (4.00-5.20); Red Cell Distribution Width 15.5 % (11.5-14.5); WBC 13.4 K/mcL (4.5-11.0)
[2020-07-06] MEDS: INSULIN LISPRO 1 UNIT/0.01 ML UNIT SQ SCH ×4 (07:48→21:19)
[2020-07-06 08:00] LABS: ALT/SGPT 11 U/L (<40); AST/SGOT 16 U/L (<32); Albumin 2.9 gm/dL (3.2-5.2); Albumin/Globulin Ratio 0.7 (1.0-2.3); Alkaline Phosphatase 101 U/L (39-117); Bilirubin,Total 0.3 mg/dL (0.1-1.0); Blood Urea Nitrogen 13 mg/dL (8-23); Carbon Dioxide 24 mmol/L (22-30); Chloride 102 mmol/L (96-108); Globulin 4.1 gm/dL (2.2-3.7); Glomerular Filtration Rate 87; Glucose 182 mg/dL (70-105)
--- NOTE | 2020-07-06 08:25 | Internal Med Progress Note ---
SUBJECTIVE Subjective Patient information: Note initiated : 07/06/20 at 8:23 am Service Date, if different from initiated Date: [] Patient: Rhea Miles 70 y/o F admitted on 06/24/20 for rectal bleeding. Chief Complaint: [] Principal diagnosis: Fecal impaction; rectal bleeding due to mucosal tear; atrial fibrillation; Interval history: This patient was admitted on for rectal bleed secondary to fecal impaction. That has been treated and she is had multiple bowel movements improvement. During course her A. fib went into RVR and was put on a Cardizem drip. And mentally she has not responded with poor mentation. Per nurse she appeared to be with appropriate mental status on nurse intake but has since had poor me ntation. And does not appear to be safe to take oral medications and so she has not been getting the oral medications. At bedside when I try to interact with patient she seems to say only "oh yeah, oh yeah", but nothing else. 06/29 Patient is back from CT. She did get some Ativan prior to the procedure. She seem to answer yes and no to a few of my questions and I thought that she moved the toe to command wants but that I could not get her to repeat a follow other commands. She did open her eyes to sternal rub not to voice. 06/30 No real change in mentation. MRI unremarkable yesterday. Scheduled for LP this morning. He seems to have moments of clarity and then will go back to confusi on. *per nurse she was a little more interactive this evening with her direct care specialist but when i returned to see her at bedside she was back at her usual mental state. Empiric keppra loading dose given this morning. I discussed the case with [place] neurologist Dr. Jean. Relayed the CSF/Imaging/lab findings/etc... He recommended another loading dose of Keppra 2grams tonight and then 1000 bid. amantadine w/d could also be part of it. This was started tonight. 07/01 Patient a little more responsive today. Seem to move feet to command and answer a few simple questions as to where she was out in order full name is. Started amantadine last night. And also continued Keppra per recommendations from neurologist. 07/02-encephalopathic but follows simple commands, mild leukocytosis today. Sl owly advancing diet-per surgery. 07/03-improving encephalopathy, tolerating diet and supplemental tube feeding, still afib and tachycardic-resumed home cardizem dose. 07/04-eating and having bowel movements, probably near baseline for mental status, added low dose lopressor for rate control 07/05-increased lopressor to 50 mg BID, discussed risk/benefits of anticoagulation, changed from IV to PO Keppra, overall has improved significantly, TTE ordered 07/06-increased lopressor to 100 mg BID, remove tompkins catheter Head: Atraumatic, normal inspection. Eyes: normal appearance, no scleral icterus. Neck: full ROM Respiratory: no respiratory distress. Cardiovascular: tachycardia, S1, S2. GI/Abdominal: NG tube, tube feeds, soft abdomen, nontender, no guarding. Extremities: full range of motion, nontender. Neurological: CN II-XII intact, intact motor, intact sensation. Psychiatric: normal mood Skin: warm, normal color Constitutional Vitals: Vital Signs Temp Pulse Resp BP Pulse Ox 98.4 F 124 H 20 156/91 95 07/06/20 08:20 07/06/20 08:20 07/06/20 08:20 07/06/20 08:20 07/06/20 08:20 Period Temp Pulse Resp BP Sys/Weinstein Pulse Ox Last 24 Hr 97.6 F-98.4 F 108-124 14-26 130-177/84-114 94-97 Intake and Output 07/05/20 07/06/20 07/06/20 21:59 05:59 13:59 Intake Total 1000 1220 Output Total 2049 1724 Balance -1050 -505 Weight 80.785 kg Intake & Output: Intake & Output 07/05/20 07/06/20 07/06/20 21:59 05:59 13:59 Intake Total 1000 1220 Output Total 2049 1724 Balance -1050 -505 Weight 80.785 kg Intake: IV 1000 1000 NaCl 0.9% W/KCl 20Meq 1000ML 1, 1000 1000 000 ml @ 75 mls/hr IV .[id number] [facility] Rx#:[id number] Oral 220 Output: Urine Catheter Amount 2049 1724 Other: Meal Lunch Percent of Meal Consumed 100% Urine Appearance Clear Clear Uretheral (Tom[place]kins) Clear Urine Color Bright Yellow Bright Yellow Uretheral (Tompkins) Bright Yellow Urine Odor Normal Normal Uretheral (Tompkins) Normal Stool Size Large Stool Color Brown Stool Consistency Soft Loose OBJ DATA Labs CBC & Chem 7: 07/06/20 06:00 07/06/20 06:00 Labs: Abnormal Lab Results 07/06/20 07/06/20 07/04/20 06:00 06:00 04:50 WBC 13.4 H MCH 25.4 L MCHC 30.9 L RDW 15.5 H MPV 10.5 H Lymph % (Auto) 10.4 L Lymph # (Auto) 1.39 L Barrow # (Auto) 1.39 H Absolute Neutrophils 10.17 H Glucose 182 H 221 H Uric Acid 2.2 L Lactate Dehydrogenase 247 H Albumin 2.9 L 2.5 L Globulin 4.1 H Albumin/Globulin Ratio 0.7 L 0.7 L Triglycerides 164 H 07/03/20 05:10 WBC MCH MCHC RDW MPV Lymph % (Auto) Lymph # (Auto) Barrow # (Auto) Absolute Neutrophils Glucose 235 H Uric Acid 2.2 L Lactate Dehydrogenase 316 H Albumin 2.6 L Globulin 3.8 H Albumin/Globulin Ratio 0.7 L Triglycerides 156 H Meds: Medications Acetaminophen/Butalbital/Caffeine (Butalb/Acetaminophen/Caffeine 1 Tablet) 2 tab PO Q4HP PRN PRN Reason: Headache Last Admin: 07/05/20 17:28 Dose: 2 tab Documented by: Amantadine HCl (Amantadine Hcl 100 Mg Capsule) 100 mg PO BID [facility] Last Admin: 07/05/20 21:08 Dose: 100 mg Documented by: Dextrose (Dextrose 50% 50 Ml Vial) 0 ml IV UD PRN PRN Reason: Hypoglycemia Diagnostic Test (Pha) (Accu-Chek 1 Each Strip) 1 each FS ACHS [facility] Last Admin: 07/06/20 07:17 Dose: 1 each Documented by: Diltiazem HCl (Diltiazem 180 Mg Cap.Xl.24h) 180 mg PO DAILY [facility] Diltiazem HCl (Diltiazem 120 Mg Cap.Xl.24h) 120 mg PO DAILY [facility] Docusate Sodium (Docusate Sodium 100 Mg Capsule) 100 mg PO BID [facility] Last Admin: 07/05/20 21:01 Dose: Not Given Documented by: Duloxetine HCl (Duloxetine 30 Mg Capsule) 60 mg PO HS [facility] Last Admin: 07/05/20 20:59 Dose: 60 mg Documented by: Enoxaparin Sodium (Enoxaparin 40 Mg/0.4 Ml Syringe) 40 mg SQ DAILY [facility] Glucose (Dextrose 31 Gm Oral.Susp) 15 gm PO PRN PRN PRN Reason: Hypoglycemia Hydralazine HCl (Hydralazine 20 Mg/Ml Vial) 0 mg IV Q4HP PRN PRN Reason: Hypertension Hydromorphone HCl (Hydromorphone 0.5 Mg/0.5 Ml Syringe) 0.5 mg IV Q2HP PRN; Pr otocol PRN Reason: Per Pain Protocol Hydromorphone HCl (Hydromorphone 2 Mg Tablet) 2 mg PO Q4HP PRN; Protocol PRN Reason: Per Pain Protocol Last Admin: 07/06/20 00:25 Dose: 2 mg Documented by: Potassium Chloride/Sodium Chloride (Nacl 0.9% W/Kcl 20meq 1000ml) 1,000 mls @ 75 mls/hr IV .[id number] [facility] Last Admin: 07/06/20 03:25 Dose: 75 mls/hr Documented by: Insulin Glargine (Insulin Glargine, Human 1 Unit/0.01 Ml) 10 unit SQ DAILY [facility] Insulin Human Lispro (Insulin Lispro 1 Unit/0.01 Ml Unit) 0 unit SQ ACHS [facility]; Protocol Last Admin: 07/06/20 07:48 Dose: 6 unit Documented by: Levetiracetam (Levetiracetam 500 Mg Tablet) 500 mg PO BID [facility] Last Admin: 07/05/20 21:00 Dose: 500 mg Documented by: Melatonin (Melatonin 3 Mg Tablet) 6 mg PO QHS [facility] Last Admin: 07/05/20 21:00 Dose: 6 mg Documented by: Metoprolol Tartrate (Metoprolol Tartrate 5 Mg/5 Ml Vial) 5 mg IV Q2HP PRN PRN Reason: Tachyarrhythmias, HR > 110 bpm Metoprolol Tartrate (Metoprolol Tartrate 50 Mg Tablet) 100 mg PO BID [facility] Ondansetron HCl (Ondansetron 4 Mg/2 Ml Vial) 4 mg IV Q6HP PRN PRN Reason: Nausea And Vomiting Pantoprazole Sodium (Pantoprazole 40 Mg Vial) 40 mg IV BIDAC [facility] Last Admin: 07/06/20 07:17 Dose: 40 mg Documented by: Potassium Chloride (Potassium Chloride 20 Meq/15 Ml Ml) 15 meq PT BIDCC [facility] Last Admin: 07/05/20 17:11 Dose: 15 meq Documented by: Pregabalin (Pregabalin 100 Mg Capsule) 200 mg PO BID [facility] Last Admin: 07/05/20 21:00 Dose: 200 mg Documented by: Senna (Sennosides 1 Tablet) 2 tab PO HS [facility] Last Admin: 07/05/20 21:01 Dose: Not Given Documented by: Sodium Chloride (0.9 % Sodium Chloride 10 Ml Syringe) 10 ml IV Q8 [facility] Last Admin: 07/06/20 05:19 Dose: 10 ml Documented by: Throat Lozenges (Benzocaine/Menthol 1 Lozenge) 1 lozenge PO PRN PRN PRN Reason: Sore Throat A/P Narrative A/P Narrative: Assessment: 70-year-old female history of hypertension, diabetes mellitus type 2, atrial fibrillation on apixaban, COPD, multiple sclerosis on amantadine, GERD, chronic pain on opioids, depression admitted for rectal bleed felt to be from fecal impaction and later developed encephalopathy of uncertain etiology. Hospitalist were consulted for encephalopathy which was probably delirium. She was empirically started on Keppra for possible seizure and will have neurology follow up. The patient has had atrial fibrillation requiring escalating doses of rate controlling CCB and BB. *Encephalopathy: resolved unknown etiology but suspect secondary to delirium. 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 She did get ativan for some rads testing over the past several days. -abg no co retention; CT/MRI no acute, old infarcts -CSF unremarkable, metabolic state stable -seems to be improving *A. fib RVR-difficult to rate control *Dysuria-concern for CAUTI *Rectal bleed from fecal impaction: resolved *Ileus: resolved *COPD(): *MS: on amantadine *Depression: *Chronic opioid use: *DM: *GERD: *hypokalemia: improved P: -hold sedating meds -keppra 500 mg BID, f/u with neurology after discharge -continue home amantadine and home pych meds via NGT -cont home diltiazem -increase lopressor BID for rate control -consider adding digoxin -Check UA w/ reflex to culture -cardiology follow up for afib -consider resuming anticoagulation apixaban -TTE report pending -IVF's per surgery -cont home psych meds -SSI -electrolyte replacement prn -home ppi -ppx: per surgery (lovenox) Time Spent With Patient Time: Total time spent is greater than 50% in coordination of care (as documented) at patient's floor/unit and/or counseling patient: QUALITY Stroke Symptom Onset Unknown: No VTE Deep Vein Thrombosis/Pulmonary Embolism Present on Admission: No
[2020-07-06] MEDS: DOCUSATE SODIUM 100 MG CAPSULE PO SCH ×2 (08:51→21:19)
[2020-07-06] MEDS ORDERED: DILTIAZEM 120 MG CAP.XL.24H PO SCH (09:00)
[2020-07-06] MEDS ORDERED: METOPROLOL TARTRATE 25 MG TABLET PO SCH (09:00)
[2020-07-06] MEDS: POTASSIUM CHLORIDE 20 MEQ/15 ML ML PT SCH ×2 (09:05→17:10)
[2020-07-06] MEDS: ENOXAPARIN 40 MG/0.4 ML SYRINGE SQ SCH (09:05)
[2020-07-06] MEDS: METOPROLOL TARTRATE 50 MG TABLET PO SCH ×2 (09:06→21:16)
[2020-07-06] MEDS: DILTIAZEM 180 MG CAP.XL.24H PO SCH (09:07)
[2020-07-06] MEDS: INSULIN GLARGINE, HUMAN 1 UNIT/0.01 ML SQ SCH (09:07)
[2020-07-06] MEDS: levETIRAcetam 500 MG TABLET PO SCH ×2 (09:07→21:16)
[2020-07-06] MEDS: PREGABALIN 100 MG CAPSULE PO SCH ×2 (09:07→21:17)
[2020-07-06] MEDS: AMANTADINE HCL 100 MG CAPSULE PO SCH ×2 (09:07→21:16)
--- NOTE | 2020-07-06 11:28 | General Surgery Progress Note ---
SUBJECTIVE Subjective Patient information: Note initiated : 07/06/20 at 11:25 am Service Date, if different from initiated Date: [] Patient: Rhea Miles 70 y/o F admitted on 06/24/20 for rectal bleeding. Chief Complaint: [] Principal diagnosis: Fecal impaction; rectal bleeding due to mucosal tear; atrial fibrillation; Interval history: Patient appears to be more alert and aware. She answers all questions appropriately. She expresses her desire to go home. Her white count is elevated to 13,000 today. She also complains of urinary symptoms. Her Saleh catheter has been removed and a urinalysis has been ordered. Her heart rate has been in the 120 range and the hospitalist increased her Lopressor 200 mg twice daily along with the Cardizem extended release. She denies abdominal pain. She has had some loose bowel movements but no rectal bleeding. Hemoglobin is 12.3. Abdominal x-rays show some dilated colon but gas extending to the rectum. She is having multiple episodes of passage of flatus. Constitutional Vitals: Vital Signs Temp Pulse Resp BP Pulse Ox 98.4 F 124 H 20 156/91 95 07/06/20 08:20 07/06/20 08:20 07/06/20 08:20 07/06/20 08:20 07/06/20 08:20 Period Temp Pulse Resp BP Sys/Weinstein Pulse Ox Last 24 Hr 97.6 F-98.4 F 108-124 14-22 130-156/84-93 94-97 Intake and Output 07/05/20 07/06/20 07/06/20 21:59 05:59 13:59 Intake Total 1000 1220 Output Total 2049 1724 Balance -1050 -505 Weight 178 lb 1.6 oz Intake & Output: Intake & Output 07/05/20 07/06/20 07/06/20 21:59 05:59 13:59 Intake Total 1000 1220 Output Total 2049 1724 Balance -1050 -505 Weight 178 lb 1.6 oz Intake: IV 1000 1000 NaCl 0.9% W/KCl 20Meq 1000ML 1, 1000 1000 000 ml @ 75 mls/hr IV .[id number] [facility] Rx#:[id number] Oral 220 Output: Urine Catheter Amount 2049 1724 Other: Meal Lunch Percent of Meal Consumed 100% Urine Appearance Clear Clear Uretheral ([place]) Clear Urine Color Bright Yellow Bright Yellow Uretheral ([facility]) Bright Yellow Urine Odor Normal Normal Uretheral ([facility]h) Normal Stool Size Large Stool Color Brown Stool Consistency Soft Loose Head Head exam: Present atraumatic, normal inspection and normocephalic Eye Eye exam: Present EOMI Pupils: Present PERRL ENT ENT exam: Present mucous membranes dry and normal exam Neck Neck exam: Present full ROM; Absent lymphadenopathy, tenderness and thyromegaly Respiratory Respiratory exam: Present normal respiratory exam and CTAB; Absent accessory muscle use, rhonchi and wheezes Cardiovascular Cardiovascular exam: Present irregular rhythm, +S1, +S2 and tachycardia; Absent JVD GI/Abdominal GI/Abdominal exam: Present soft; Absent distended and tenderness Extremities Exam Extremities exam: Present calf tenderness, full ROM, normal inspection, tenderness (Tenderness of soft tissue of upper and lower extremities) and Foot pink and warm; Absent pedal edema Neurological Exam Additional comments: Patient is more mentally alert and oriented to place and time. She does follow simple commands. She is able to take oral without difficulty. 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
[2020-07-06 12:30] LABS: Appearance,Urine HAZY (Clear); Bacteria,Urine FEW /hpf (0); Bilirubin,Urine Negative (Negative); Color,Urine YELLOW; Culture Indicated,Urine No; Glucose,Urine (UA) Negative (Negative); Ketones,Urine Negative (Negative); Leukocyte Esterase,Urine 25 /ug (Negative); Mucus,Urine FEW /hpf; Nitrate,Urine Negative (Negative); Protein,Urine >=500 mg/dL (Negative); Specific Gravity,Urine 1.013 (1.000-1.035); Urine Blood 0.03 mg/dL (Negative); Urine Hyaline Cast 7 /lph (0-2); Urine RBC 74 /hpf (0-3); Urine Squamous Epithelial Cell 24 /hpf (0-4); Urine Transitional Epi Cells < 1 /hpf (0-2); Urine WBC 11 /hpf (0-4); Urobilinogen,Urine Negative
--- NOTE | 2020-07-06 12:47 | Internal Med Progress Note ---
SUBJECTIVE Subjective Patient information: Note initiated : 07/06/20 at 12:43 pm Service Date, if different from initiated Date: [] Patient: Rhea Miles 70 y/o F admitted on 06/24/20 for rectal bleeding. Chief Complaint: [] Principal diagnosis: Fecal impaction; rectal bleeding due to mucosal tear; atrial fibrillation; Interval history: Interval history: This patient was admitted on for rectal bleed secondary to fecal impaction. That has been treated and she is had multiple bowel movements improvement. During course her A. fib went into RVR and was put on a Cardizem drip. And mentally she has not responded with poor mentation. Per nurse she appeared to be with appropriate mental status on nurse intake but has since had poor mentation. And does not appear to be safe to take oral medications and so she has not been getting the oral medications. At bedside when I try to interact with patient she seems to say only "oh yeah, oh yeah", but nothing else. 06/29 Patient is back from CT. She did get some Ativan prior to the procedure. She seem to answer yes and no to a few of my questions and I thought that she moved the toe to command wants but that I could not get her to repeat a follow other commands. She did open her eyes to sternal rub not to voice. 06/30 No real change in mentation. MRI unremarkable yesterday. Scheduled for LP this morning. He seems to have moments of clarity and then will go back to confusion. *per nurse she was a little more interactive this evening with her point of care technician but when i returned to see her at bedside she was back at her usual mental state. Empiric keppra loading dose given this morning. I discussed the case with [place] neurologist Dr. Jean. Relayed the CSF/Imaging/lab findings/etc... He recommended another loading dose of Keppra 2grams tonight and then 1000 bid. amantadine w/d could also be part of it. This was started tonight. 07/01 Patient a little more responsive today. Seem to move feet to command and answer a few simple questions as to where she was out in order full name is. Started amantadine last night. And also continued Keppra per recommendations from neurologist. 07/02-encephalopathic but follows simple commands, mild leukocytosis today. Slowly advancing diet-per surgery. 07/03-improving encephalopathy, tolerating diet and supplemental tube feeding, still afib and tachycardic-resumed home cardizem dose. 07/04-eating and having bowel movements, probably near baseline for mental status, added low dose lopressor for rate control 07/05-increased lopressor to 50 mg BID, discussed risk/benefits of anticoagulation, changed from IV to PO Keppra, overall has improved significantly, TTE ordered 07/06-increased lopressor to 100 mg BID, remove tompkins catheter Constitutional Vitals: Vital Signs Temp Pulse Resp BP Pulse Ox 98.4 F 124 H 20 156/91 95 07/06/20 08:20 07/06/20 08:20 07/06/20 08:20 07/06/20 08:20 07/06/20 08:20 Period Temp Pulse Resp BP Sys/Weinstein Pulse Ox Last 24 Hr 97.6 F-98.4 F 108-124 14-22 130-156/84-93 94-97 Intake and Output 07/05/20 07/06/20 07/06/20 21:59 05:59 13:59 Intake Total 1000 1220 Output Total 2049 172 Balance -1050 -505 Weight 80.785 kg Intake & Output: Intake & Output 07/05/20 07/06/20 07/06/20 21:59 05:59 13:59 Intake Total 1000 1220 Output Total 2049 172 Balance -1050 -505 Weight 80.785 kg Intake: IV 1000 1000 NaCl 0.9% W/KCl 20Meq 1000ML 1, 1000 1000 000 ml @ 75 mls/hr IV .[id number] [facility] Rx#:[id number] Oral 220 Output: Urine Catheter Amount 2049 1724 Other: Meal Lunch Percent of Meal Consumed 100% Urine Appearance Clear Clear Uretheral ([place]) Clear Urine Color Bright Yellow Bright Yellow Uretheral ([place]pkins) Bright Yellow Urine Odor Normal Normal Uretheral ([place]kins) Normal Stool Size Large Stool Color Brown Stool Consistency Soft Loose Exam: General: awake, No acute Distress Eyes/N/T: PERRL, Head/Neck: neck supple, CV: irreg irreg, tachy, No murmurs, Pulm: Clear b/l, no wheezing/rhonchi/rales Abd: soft, nontender, +BS x4, NGT Ext: no clubbing/cyanosis/edema Neuro: mentation much improved, commands moves all extremities spontaneously. Skin: warm/dry OBJ DATA Labs CBC & Chem 7: 07/06/20 06:00 07/06/20 06:00 Labs: Abnormal Lab Results 07/06/20 07/06/20 07/06/20 11:54 06:00 06:00 WBC 13.4 H MCH 25.4 L MCHC 30.9 L RDW 15.5 H MPV 10.5 H Lymph % (Auto) 10.4 L Lymph # (Auto) 1.39 L [place] # (Auto) 1.39 H Absolute Neutrophils 10.17 H Glucose 182 H Uric Acid Lactate Dehydrogenase Albumin 2.9 L Globulin 4.1 H Albumin/Globulin Ratio 0.7 L Triglycerides Urine Appearance Hazy A Urine Protein >=500 A Ur Leukocyte Esterase 25 A Urine RBC 74 H Urine WBC 11 H Ur Squamous Epith Cells 24 H Urine Bacteria Few A Hyaline Casts 7 H Urine Mucus Few A 07/04/20 04:50 WBC MCH MCHC RDW MPV Lymph % (Auto) Lymph # (Auto) [place] # (Auto) Absolute Neutrophils Glucose 221 H Uric Acid 2.2 L Lactate Dehydrogenase 247 H Albumin 2.5 L Globulin Albumin/Globulin Ratio 0.7 L Triglycerides 164 H Urine Appearance Urine Protein Ur Leukocyte Esterase Urine RBC Urine WBC Ur Squamous Epith Cells Urine Bacteria Hyaline Casts Urine Mucus Meds: Medications Acetaminophen/Butalbital/Caffeine (Butalb/Acetaminophen/Caffeine 1 Tablet) 2 tab PO Q4HP PRN PRN Reason: Headache Last Admin: 07/05/20 17:28 Dose: 2 tab Documented by: Amantadine HCl (Amantadine Hcl 100 Mg Capsule) 100 mg PO BID [facility] Last Admin: 07/06/20 09:07 Dose: 100 mg Documented by: Dextrose (Dextrose 50% 50 Ml Vial) 0 ml IV UD PRN PRN Reason: Hypoglycemia Diagnostic Test (Pha) (Accu-Chek 1 Each Strip) 1 each FS ACHS [facility] Last Admin: 07/06/20 12:02 Dose: 1 each Documented by: Diltiazem HCl (Diltiazem 180 Mg Cap.Xl.24h) 180 mg PO DAILY [facility] Last Admin: 07/06/20 09:07 Dose: 180 mg Documented by: Diltiazem HCl (Diltiazem 120 Mg Cap.Xl.24h) 120 mg PO DAILY [facility] Last Admin: 07/06/20 09:06 Dose: 120 mg Documented by: Docusate Sodium (Docusate Sodium 100 Mg Capsule) 100 mg PO BID [facility] Last Admin: 07/06/20 08:51 Dose: Not Given Documented by: Duloxetine HCl (Duloxetine 30 Mg Capsule) 60 mg PO HS [facility] Last Admin: 07/05/20 20:59 Dose: 60 mg Documented by: Enoxaparin Sodium (Enoxaparin 40 Mg/0.4 Ml Syringe) 40 mg SQ DAILY [facility] Last Admin: 07/06/20 09:05 Dose: 40 mg Documented by: Glucose (Dextrose 31 Gm Oral.Susp) 15 gm PO PRN PRN PRN Reason: Hypoglycemia Hydralazine HCl (Hydralazine 20 Mg/Ml Vial) 0 mg IV Q4HP PRN PRN Reason: Hypertension Hydromorphone HCl (Hydromorphone 0.5 Mg/0.5 Ml Syringe) 0.5 mg IV Q2HP PRN; Protocol PRN Reason: Per Pain Protocol Hydromorphone HCl (Hydromorphone 2 Mg Tablet) 2 mg PO Q4HP PRN; Protocol PRN Reason: Per Pain Protocol Last Admin: 07/06/20 00:25 Dose: 2 mg Documented by: Potassium Chloride/Sodium Chloride (Nacl 0.9% W/Kcl 20meq 1000ml) 1,000 mls @ 75 mls/hr IV .[id number] [facility] Last Admin: 07/06/20 03:25 Dose: 75 mls/hr Documented by: Insulin Glargine (Insulin Glargine, Human 1 Unit/0.01 Ml) 10 unit SQ DAILY [facility] Last Admin: 07/06/20 09:07 Dose: 10 unit Documented by: Insulin Human Lispro (Insulin Lispro 1 Unit/0.01 Ml Unit) 0 unit SQ ACHS [facility]; Protocol Last Admin: 07/06/20 12:22 Dose: 2 unit Documented by: Levetiracetam (Levetiracetam 500 Mg Tablet) 500 mg PO BID [facility] Last Admin: 07/06/20 09:07 Dose: 500 mg Documented by: Melatonin (Melatonin 3 Mg Tablet) 6 mg PO QHS [facility] Last Admin: 07/05/20 21:00 Dose: 6 mg Documented by: Metoprolol Tartrate (Metoprolol Tartrate 5 Mg/5 Ml Vial) 5 mg IV Q2HP PRN PRN Reason: Tachyarrhythmias, HR > 110 bpm Metoprolol Tartrate (Metoprolol Tartrate 50 Mg Tablet) 100 mg PO BID [facility] Last Admin: 07/06/20 09:06 Dose: 100 mg Documented by: Ondansetron HCl (Ondansetron 4 Mg/2 Ml Vial) 4 mg IV Q6HP PRN PRN Reason: Nausea And Vomiting Pantoprazole Sodium (Pantoprazole 40 Mg Vial) 40 mg IV BIDAC [facility] Last Admin: 07/06/20 07:17 Dose: 40 mg Documented by: Potassium Chloride (Potassium Chloride 20 Meq/15 Ml Ml) 15 meq PT BIDCC [facility] Last Admin: 07/06/20 09:05 Dose: 15 meq Documented by: Pregabalin (Pregabalin 100 Mg Capsule) 200 mg PO BID [facility] Last Admin: 07/06/20 09:07 Dose: 200 mg Documented by: Senna (Sennosides 1 Tablet) 2 tab PO HS [facility] Last Admin: 07/05/20 21:01 Dose: Not Given Documented by: Sodium Chloride (0.9 % Sodium Chloride 10 Ml Syringe) 10 ml IV Q8 [facility] Last Admin: 07/06/20 05:19 Dose: 10 ml Documented by: Throat Lozenges (Benzocaine/Menthol 1 Lozenge) 1 lozenge PO PRN PRN PRN Reason: Sore Throat A/P Narrative A/P Narrative: A: *Encephalopathy: REsolved unknown etiology but suspect secondary to delirium or med withdrawal. 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 -abg no co retention; CT/MRI no acute, old infarcts -CSF unremarkable, metabolic state stable *A. fib RVR: improving but difficult *Rectal bleed from fecal impaction: resolved *Ileus: resolved *COPD(): *MS: on amantadine *Depression: *Chronic opioid use: *DM: *GERD: *hypokalemia: improved P: -hold sedating meds -empiric keppra per neurology now at 500bid, f/u with neurology -cont home dilt, off dilt gtt -increase lopressor BID for rate control -consider adding digoxin -consider resuming anticoagulation apixaban -TTE report pending -restarted amantadine, restarted home pysch meds -IVF's, TF's per surgery -SSI -lasix prn-electrolyte replacement prn -home ppi -f/u with cardio outpt -ppx: per surgery (lovenox) Time Spent With Patient Time: Total time spent is greater than 50% in coordination of care (as documented) at patient's floor/unit and/or counseling patient: QUALITY Stroke Symptom Onset Unknown: No VTE Deep Vein Thrombosis/Pulmonary Embolism Present on Admission: No
[2020-07-06] MEDS: BUTALB/ACETAMINOPHEN/CAFFEINE 1 TABLET PO PRN (13:48)
[2020-07-06] MEDS: MELATONIN 3 MG TABLET PO SCH (21:16)
[2020-07-06] MEDS: DULoxetine 30 MG CAPSULE PO SCH (21:16)
[2020-07-06] MEDS: SENNOSIDES 1 TABLET PO SCH (21:19)
[2020-07-07] MEDS: 0.9 % SODIUM CHLORIDE 10 ML SYRINGE IV SCH (06:08)
[2020-07-07 07:15] LABS: Basophils # (Auto) 0.14 K/mcL (0.00-0.20); Basophils % (Auto) 1.2 % (0.0-2.0); Eosinophils # (Auto) 0.29 K/mcL (0.00-0.70); Eosinophils % (Auto) 2.5 % (0.0-7.0); Hematocrit 37.2 % (36.0-48.0); Hemoglobin 11.2 g/dL (12.0-15.0); Lymphocytes # (Auto) 1.84 K/mcL (1.50-4.80); Lymphocytes % (Auto) 16.1 % (15.0-49.0); Mean Cell Volume 84.5 fL (80.0-100.0); Mean Corpuscular HGB Conc 30.1 g/dL (31.0-36.0); Mean Platelet Volume 11.1 fL (7.4-10.4); Monocytes # (Auto) 1.15 K/mcL (0.10-0.90); Monocytes % (Auto) 10.1 % (1.0-12.0); Neutrophils % (Auto) 70.1 % (38.0-78.0); Platelet Count 317 K/mcL (140-440); Red Cell Distribution Width 15.8 % (11.5-14.5); WBC 11.4 K/mcL (4.5-11.0)
--- NOTE | 2020-07-07 07:22 | Internal Med Progress Note ---
SUBJECTIVE Subjective Patient information: Note initiated : 07/07/20 at 7:21 am Service Date, if different from initiated Date: [] Patient: Rhea Miles 70 y/o F admitted on 06/24/20 for rectal bleeding. Chief Complaint: [] Principal diagnosis: Fecal impaction; rectal bleeding due to mucosal tear; atrial fibrillation; Interval history: Interval history: This patient was admitted on for rectal bleed secondary to fecal impaction. That has been treated and she is had multiple bowel movements improvement. During course her A. fib went into RVR and was put on a Cardizem drip. And mentally she has not responded with poor mentation. Per nurse she appeared to be with appropriate mental status on nurse intake but has since had poor mentation. And does not appear to be safe to take oral medications and so she has not been getting the oral medications. At bedside when I try to interact with patient she seems to say only "oh yeah, oh yeah", but nothing else. 06/29 Patient is back from CT. She did get some Ativan prior to the procedure. She seem to answer yes and no to a few of my questions and I thought that she moved the toe to command wants but that I could not get her to repeat a follow other commands. She did open her eyes to sternal rub not to voice. 06/30 No real change in mentation. MRI unremarkable yesterday. Scheduled for LP this morning. He seems to have moments of clarity and then will go back to confusion. *per nurse she was a little more interactive this evening with her attending ambulatory care but when i returned to see her at bedside she was back at her usual mental state. Empiric keppra loading dose given this morning. I discussed the case with [place] neurologist Dr. Jean. Relayed the CSF/Imaging/lab findings/etc... He recommended another loading dose of Keppra 2grams tonight and then 1000 bid. amantadine w/d could also be part of it. This was started tonight. 07/01 Patient a little more responsive today. Seem to move feet to command and answer a few simple questions as to where she was out in order full name is. Started amantadine last night. And also continued Keppra per recommendations from neurologist. 07/02-encephalopathic but follows simple commands, mild leukocytosis today. Slowly advancing diet-per surgery. 07/03-improving encephalopathy, tolerating diet and supplemental tube feeding, still afib and tachycardic-resumed home cardizem dose. 07/04-eating and having bowel movements, probably near baseline for mental status, added low dose lopressor for rate control 07/05-increased lopressor to 50 mg BID, discussed risk/benefits of anticoagulation, changed from IV to PO Keppra, overall has improved significantly, TTE ordered 07/06-increased lopressor to 100 mg BID, remove tompkins catheter 07/07 Doing well. Sitting up in chair eating breakfast. Heart rate little better today. Will adjust her diltiazem morning dose up as well. Constitutional Vitals: Vital Signs Temp Pulse Resp BP Pulse Ox 97.6 F 98 H 20 116/85 95 07/07/20 02:54 07/07/20 02:54 07/07/20 02:54 07/07/20 02:54 07/07/20 02:54 Period Temp Pulse Resp BP Sys/Weinstein Pulse Ox Last 24 Hr 96.5 F-98.4 F 87-124 99-156/71-98 94-96 Intake and Output 07/06/20 07/07/20 07/07/20 21:59 05:59 13:59 Intake Total 1600 125 Output Total 451 Balance 1600 -326 Weight 80.785 kg 80.694 kg Intake & Output: Intake & Output 07/06/20 07/07/20 07/07/20 21:59 05:59 13:59 Intake Total 1600 125 Output Total 451 Balance 1600 -326 Weight 80.785 kg 80.694 kg Intake: IV 1000 NaCl 0.9% W/KCl 20Meq 1000ML 1, 1000 000 ml @ 75 mls/hr IV .[id number] [facility] Rx#:[id number] Oral 600 125 Output: Void Amount 450 # of times incontinent of urine 1 Other: Urine Appearance Clear Urine Color Bright Yellow Stool Color Brown Stool Consistency Soft Loose # Voids 2 Exam: General: awake, No acute Distress Eyes/N/T: PERRL, Head/Neck: neck supple, CV: irreg irreg, tachy, No murmurs, Pulm: Clear b/l, no wheezing/rhonchi/rales Abd: soft, nontender, +BS x4, NGT Ext: no clubbing/cyanosis/edema Neuro: mentation much improved, commands moves all extremities spontaneously. Alert and awake Skin: warm/dry OBJ DATA Labs CBC & Chem 7: 07/07/20 05:58 07/06/20 06:00 Labs: Abnormal Lab Results 07/07/20 07/06/20 07/06/20 05:58 11:54 06:00 WBC 11.4 H Hgb 11.2 L MCH 25.5 L MCHC 30.1 L RDW 15.8 H MPV 11.1 H Lymph % (Auto) Lymph # (Auto) [place] # (Auto) 1.15 H Absolute Neutrophils Glucose 182 H Uric Acid Lactate Dehydrogenase Albumin 2.9 L Globulin 4.1 H Albumin/Globulin Ratio 0.7 L Triglycerides Urine Appearance Hazy A Urine Protein >=500 A Ur Leukocyte Esterase 25 A Urine RBC 74 H Urine WBC 11 H Ur Squamous Epith Cells 24 H Urine Bacteria Few A Hyaline Casts 7 H Urine Mucus Few A 07/06/20 07/04/20 06:00 04:50 WBC 13.4 H Hgb MCH 25.4 L MCHC 30.9 L RDW 15.5 H MPV 10.5 H Lymph % (Auto) 10.4 L Lymph # (Auto) 1.39 L [place] # (Auto) 1.39 H Absolute Neutrophils 10.17 H Glucose 221 H Uric Acid 2.2 L Lactate Dehydrogenase 247 H Albumin 2.5 L Globulin Albumin/Globulin Ratio 0.7 L Triglycerides 164 H Urine Appearance Urine Protein Ur Leukocyte Esterase Urine RBC Urine WBC Ur Squamous Epith Cells Urine Bacteria Hyaline Casts Urine Mucus Meds: Medications Acetaminophen/Butalbital/Caffeine (Butalb/Acetaminophen/Caffeine 1 Tablet) 2 tab PO Q4HP PRN PRN Reason: Headache Last Admin: 07/06/20 13:48 Dose: 2 tab Documented by: Amantadine HCl (Amantadine Hcl 100 Mg Capsule) 100 mg PO BID [facility] Last Admin: 07/06/20 21:16 Dose: 100 mg Documented by: Dextrose (Dextrose 50% 50 Ml Vial) 0 ml IV UD PRN PRN Reason: Hypoglycemia Diagnostic Test (Pha) (Accu-Chek 1 Each Strip) 1 each FS ACHS [facility] Last Admin: 07/06/20 21:20 Dose: 1 each Documented by: Diltiazem HCl (Diltiazem 180 Mg Cap.Xl.24h) 180 mg PO DAILY [facility] Last Admin: 07/06/20 09:07 Dose: 180 mg Documented by: Diltiazem HCl (Diltiazem 120 Mg Cap.Xl.24h) 120 mg PO DAILY [facility] Last Admin: 07/06/20 09:06 Dose: 120 mg Documented by: Docusate Sodium (Docusate Sodium 100 Mg Capsule) 100 mg PO BID [facility] Last Admin: 07/06/20 21:19 Dose: Not Given Documented by: Duloxetine HCl (Duloxetine 30 Mg Capsule) 60 mg PO HS [facility] Last Admin: 07/06/20 21:16 Dose: 60 mg Documented by: Enoxaparin Sodium (Enoxaparin 40 Mg/0.4 Ml Syringe) 40 mg SQ DAILY [facility] Last Admin: 07/06/20 09:05 Dose: 40 mg Documented by: Glucose (Dextrose 31 Gm Oral.Susp) 15 gm PO PRN PRN PRN Reason: Hypoglycemia Hydralazine HCl (Hydralazine 20 Mg/Ml Vial) 0 mg IV Q4HP PRN PRN Reason: Hypertension Hydromorphone HCl (Hydromorphone 0.5 Mg/0.5 Ml Syringe) 0.5 mg IV Q2HP PRN; Protocol PRN Reason: Per Pain Protocol Hydromorphone HCl (Hydromorphone 2 Mg Tablet) 2 mg PO Q4HP PRN; Protocol PRN Reason: Per Pain Protocol Last Admin: 07/06/20 22:37 Dose: 2 mg Documented by: Potassium Chloride/Sodium Chloride (Nacl 0.9% W/Kcl 20meq 1000ml) 1,000 mls @ 75 mls/hr IV .[id number] [facility] Last Admin: 07/06/20 17:09 Dose: 75 mls/hr Documented by: Insulin Glargine (Insulin Glargine, Human 1 Unit/0.01 Ml) 10 unit SQ DAILY [facility] Last Admin: 07/06/20 09:07 Dose: 10 unit Documented by: Insulin Human Lispro (Insulin Lispro 1 Unit/0.01 Ml Unit) 0 unit SQ ACHS [facility]; Protocol Last Admin: 07/06/20 21:19 Dose: 4 unit Documented by: Levetiracetam (Levetiracetam 500 Mg Tablet) 500 mg PO BID [facility] Last Admin: 07/06/20 21:16 Dose: 500 mg Documented by: Melatonin (Melatonin 3 Mg Tablet) 6 mg PO QHS [facility] Last Admin: 07/06/20 21:16 Dose: 6 mg Documented by: Metoprolol Tartrate (Metoprolol Tartrate 5 Mg/5 Ml Vial) 5 mg IV Q2HP PRN PRN Reason: Tachyarrhythmias, HR > 110 bpm Metoprolol Tartrate (Metoprolol Tartrate 50 Mg Tablet) 100 mg PO BID [facility] Last Admin: 07/06/20 21:16 Dose: 100 mg Documented by: Ondansetron HCl (Ondansetron 4 Mg/2 Ml Vial) 4 mg IV Q6HP PRN PRN Reason: Nausea And Vomiting Pantoprazole Sodium (Pantoprazole 40 Mg Vial) 40 mg IV BIDAC [facility] Last Admin: 07/06/20 17:10 Dose: 40 mg Documented by: Potassium Chloride (Potassium Chloride 20 Meq/15 Ml Ml) 15 meq PT BIDCC [facility] Last Admin: 07/06/20 17:10 Dose: 15 meq Documented by: Pregabalin (Pregabalin 100 Mg Capsule) 200 mg PO BID [facility] Last Admin: 07/06/20 21:17 Dose: 200 mg Documented by: Senna (Sennosides 1 Tablet) 2 tab PO HS [facility] Last Admin: 07/06/20 21:19 Dose: Not Given Documented by: Sodium Chloride (0.9 % Sodium Chloride 10 Ml Syringe) 10 ml IV Q8 [facility] Last Admin: 07/07/20 06:08 Dose: 10 ml Documented by: Throat Lozenges (Benzocaine/Menthol 1 Lozenge) 1 lozenge PO PRN PRN PRN Reason: Sore Throat A/P Narrative A/P Narrative: A: *Encephalopathy: REsolved unknown etiology but suspect secondary to delirium or med withdrawal. 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 -abg no co retention; CT/MRI no acute, old infarcts -CSF unremarkable, metabolic state stable *A. fib RVR: improving but difficult *Rectal bleed from fecal impaction: resolved *Ileus: resolved *COPD(): *MS: on amantadine *Depression: *Chronic opioid use: *DM: *GERD: *hypokalemia: improved P: -hold sedating meds -empiric keppra per neurology now at 500bid, f/u with neurology -cont home dilt (increased), off dilt gtt -increased lopressor BID for rate control -consider adding digoxin -consider resuming anticoagulation apixaban -TTE report pending -restarted amantadine, restarted home pysch meds -IVF's, TF's per surgery -SSI -lasix prn-electrolyte replacement prn -home ppi -f/u with cardio outpt -ppx: per surgery (lovenox) Time Spent With Patient Time: Total time spent is greater than 50% in coordination of care (as documented) at patient's floor/unit and/or counseling patient: QUALITY Stroke Symptom Onset Unknown: No VTE Deep Vein Thrombosis/Pulmonary Embolism Present on Admission: No
[2020-07-07] MEDS: NACL 0.9% W/KCL 20MEQ 1,000 ML IV SCH (07:53)
[2020-07-07] MEDS: INSULIN LISPRO 1 UNIT/0.01 ML UNIT SQ SCH ×2 (07:54→15:07)
[2020-07-07] MEDS: PANTOPRAZOLE 40 MG VIAL IV SCH (07:54)
[2020-07-07] MEDS: POTASSIUM CHLORIDE 20 MEQ/15 ML ML PT SCH (07:55)
[2020-07-07 07:59] LABS: Blood Urea Nitrogen 19 mg/dL (8-23); Calcium 9.3 mg/dL (8.6-10.4); Carbon Dioxide 21 mmol/L (22-30); Chloride 107 mmol/L (96-108); Glomerular Filtration Rate 64; Glucose 144 mg/dL (70-105)
--- NOTE | 2020-07-07 08:17 | Discharge Summary ---
Discharge Provider Provider Patient information: Note initiated : 07/07/20 at 8:09 am Service Date, if different from initiated Date: [] Patient: Rhea Miles 70 y/o F admitted on 06/24/20 for rectal bleeding. Chief Complaint: [] Date of admission: 06/24/20 23:29 Discharge date: 07/07/20 Primary care physician: Miya Crocker Admitting clinician: Cindy Templeton Attending physician on admission: Cindy Templeton Consults: 06/24/20 Consult to Physician [CONS] Stat Comment: Consulting Provider: Cindy Templeton Reason For Exam: Physician to Consult 06/28/20 15:51 Consult to Physician [CONS] Routine Comment: FOR EVALUATION OF ACUTE MENTAL STATUS CHANGE Consulting Provider: Don Grewal Reason For Exam: Physician to Consult Attending physician on discharge: Cindy Templeton Discharging clinician: Cindy Templeton COURSE Hospital Course Hospital course: 70-year-old female admitted for severe constipation with rectal bleeding after a large evacuation. The patient has a long history of opioid dependency and had not had a bowel movement for 4 days. She had increasing abdominal pain. After a very large bowel movement she developed some rectal bleeding and was diaphoretic and weak. She was seen in the emergency room where it was noted that she had tenderness of her abdomen and generalized weakness. She was also disoriented and had a white blood count of 23,100. Her hemoglobin however was 14.7. BUN was 35 with a creatinine of 1.8 and lactic acid of 4.6. Abdominal x-ray showed dilated stomach with dilated transverse colon with large volume of stool in the right colon and the left colon leading down to the rectum. This was confirmed by CT. The patient also had tachycardia. It is unknown if she had stopped taking her medications for atrial fibrillation. At the time that she was admitted she was passing liquid stool but was very confused and had significant tachycardia. She was admitted and started on Relistor to block the effect of the opiates on her bowel. Rectal exam revealed a superficial tear which was the cause of her bleeding. She had a significant tachycardia with heart rate in the 1 40-1 50 range. She was initially treated with metoprolol IV and this was later supplemented with Cardizem drip. After about 2days her GI tract was stable but the patient would not take p.o. nasogastric tube was placed for meds and she was started back on her oral medications. She was aggressively hydrated and her blood sugars were controlled with sliding scales. She was treated with Zosyn and her white count returned to normal. The major problem after about 6 days was acute mental status changes. It was said that she was alert in the emergency room but when I evaluated her initially she was totally disoriented and would not answer questions or follow any commands. The question arose as to whether or not she had had some type of seizure disorder. Hospitalist evaluated this and she had CT of the brain which was normal she had MRI which was normal and also had lumbar puncture for sampling of her spinal fluid. This too was normal. She was placed back on her chronic amantadine her pregabalin and Cymbalta. She also was started on Keppra and has continued on that. Patient is now stable. She is probably back to baseline. Medications have been adjusted by the hospitalist for discharge. Discharge diagnosis: Opioid-induced constipation severe Secondary discharge diagnosis: Anal rectal tear with bleeding Diabetes mellitus type 2 Atrial fibrillation with rapid ventricular response Dehydration with acute on chronic kidney injury Hypertension Acute mental status changes with delirium Lactic acidosis Gastroesophageal reflux disease Long-term prescription opiate use Chronic obstructive lung disease Reason for admission: Rectal bleeding Procedures: None Pertinent studies/significant findings: CT of abdomen and pelvis CT of head MRI of brain Lumbar puncture Complications: None Time Spent with Patient Time attestation: Total time spent providing and/or coordinating discharge services: Physical Examination Vital Signs Vital signs: Temp Pulse Resp BP Pulse Ox 97.6 F 98 H 20 116/85 95 07/07/20 02:54 07/07/20 02:54 07/07/20 02:54 07/07/20 02:54 07/07/20 02:54 General physical appearance General physical exam: well developed, well nourished, no distress and no pain Eyes Eye exam: PERRL, normal ocular movement and other (Unable to determine if patient can focus) ENT ENT exam: decreased hearing Head Head exam IM: Present atraumatic, normal inspection and normocephalic Neck Neck exam: no masses, no bruits, trachea midline, no lymphadenopathy and no venous distension Cardiovascular Cardiovascular exam IM: Present irregular rhythm (Irregularly irregular rhythm with average rate 100) and tachycardia Respiratory Respiratory exam: normal respiratory effort and clear to auscultation Abdomen Abdomen: Present soft, non tender and bowel sounds (Normal bowel sounds) Integumentary Integumentary: Present no rash and no growths Neurologic Neurologic: Present normal coordination and normal sensation Musculoskeletal Musculoskeletal: Present normal gait and normal posture Psychiatric Psychiatric: Present oriented to time, oriented to person, oriented to place, speech is normal and memory intact Discharge Plan Patient/Caregiver Discharge Instructions Activity: as per physical therapy Diet: Regular Diet Activity Restrictions/Additional Instructions: Referral to see cardiology in 3 to 10 days for atrial fibrillation Monitor heart rate twice daily and bring 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 Referral to see neurologist in 3 to 10 days for seizure evaluation Prescriptions: New diltiazem HCl 180 mg capsule,extended release 24hr 180 mg PO BID Qty: 60 RF: 0 levetiracetam 500 mg Tablet 500 mg PO BID Qty: 60 RF: 0 metoprolol tartrate 50 mg Tablet 100 mg PO BID Qty: 120 RF: 0 hydromorphone 4 mg Tablet 2 mg PO Q6 Qty: 30 RF: 0 Discontinued diltiazem HCl [Cartia XT] 300 mg capsule,extended release 24hr 300 mg PO QDAY RF: 0 lisinopril 40 mg tablet 40 mg PO QDAY RF: 0 No Action Myrbetriq 50 mg tablet extended release 24 hr 25 mg PO QDAY Qty: 30 RF: 3 omeprazole 20 mg capsule,delayed release(DR/EC) 20 mg PO QDAY RF: 0 metformin 500 mg tablet extended release 24 hr 500 mg PO BID RF: 0 pregabalin 200 mg capsule 200 mg PO BID RF: 0 hydromorphone 2 mg tablet 2 mg PO Q4H PRN (Reason: Pain) RF: 0 amantadine HCl 100 mg capsule 100 mg PO BID RF: 0 Digestive Advantage 1 tab PO QDAY RF: 0 potassium chloride 10 mEq tablet extended release 10 meq PO QDAY RF: 0 furosemide 20 mg tablet 20 mg PO BID Qty: 60 RF: 11 Vitamin D3 50 mcg 1 tab PO QPM RF: 0 albuterol sulfate 90 mcg/actuation HFA aerosol inhaler 2 puff INHALATION Q4 PRN (Reason: Shortness Of Breath) RF: 0 duloxetine 60 mg capsule, delayed rel sprinkle 60 mg PO QHS RF: 0 Eliquis 5 mg tablet 5 mg PO BID RF: 0 Other Ambulatory Orders: OT Discharge Order (Routine) Location: None Selected Ordered By: Cindy Templeton Physical Therapy at Discharge - General (Routine) Location: None Selected Ordered By: Cindy Templeton Follow Up Plan Follow up with: Miya Crocker MD [Primary Care Provider] - Patient Disposition: Xfer SNF Prognosis: Fair Rehab Potential: Fair I certify that the patient requires SNF services: Yes Overall status at discharge: patient is back to baseline Discharge Orders: Discharge Order (Routine); Ordered 07/07/20 Ordered By: Cindy Templeton Pending Pending Pending: Resuscitation Status Full Code Diet GI Soft/Transitional Start SunJuly 05 1357 Acetaminophen/Butalbital/Caffeine (Butalb/Acetaminophen/Caffeine 1 Tablet) 2 tab PO Q4HP PRN PRN Reason: Headache Last Admin: 07/06/20 13:48 Dose: 2 tab Documented by: Admin: 07/05/20 17:28 Dose: 2 tab Documented by: DAVE Amantadine HCl (Amantadine Hcl 100 Mg Capsule) 100 mg PO BID [facility] Last Admin: 07/06/20 21:16 Dose: 100 mg Documented by: ТАТЬЯНА Admin: 07/06/20 09:07 Dose: 100 mg Documented by: Admin: 07/05/20 21:08 Dose: 100 mg Documented by: ТАТЬЯНА Diagnostic Test (Pha) (Accu-Chek 1 Each Strip) 1 each FS ACHS [facility] Last Admin: 07/07/20 07:53 Dose: 1 each Documented by: Admin: 07/06/20 21:20 Dose: 1 each Documented by: ТАТЬЯНА Admin: 07/06/20 17:15 Dose: 1 each Documented by: Admin: 07/06/20 12:02 Dose: 1 each Documented by: Admin: 07/06/20 07:17 Dose: 1 each Documented by: Admin: 07/05/20 20:56 Dose: 1 each Documented by: ТАТЬЯНА Admin: 07/05/20 17:13 Dose: 1 each Documented by: DAVE Diltiazem HCl (Diltiazem 180 Mg Cap.Xl.24h) 180 mg PO DAILY [facility] Last Admin: 07/06/20 09:07 Dose: 180 mg Documented by: DAVE Docusate Sodium (Docusate Sodium 100 Mg Capsule) 100 mg PO BID [facility] Last Admin: 07/06/20 21:19 Dose: Not Given Documented by: ТАТЬЯНА Admin: 07/06/20 08:51 Dose: Not Given Documented by: Admin: 07/05/20 21:01 Dose: Not Given Documented by: ТАТЬЯНА Duloxetine HCl (Duloxetine 30 Mg Capsule) 60 mg PO HS [facility] Last Admin: 07/06/20 21:16 Dose: 60 mg Documented by: ТАТЬЯНА Admin: 07/05/20 20:59 Dose: 60 mg Documented by: ТАТЬЯНА Enoxaparin Sodium (Enoxaparin 40 Mg/0.4 Ml Syringe) 40 mg SQ DAILY [facility] Last Admin: 07/06/20 09:05 Dose: 40 mg Documented by: DAVE Hydromorphone HCl (Hydromorphone 2 Mg Tablet) 2 mg PO Q4HP PRN; Protocol PRN Reason: Per Pain Protocol Last Admin: 07/06/20 22:37 Dose: 2 mg Documented by: ТАТЬЯНА Admin: 07/06/20 18:49 Dose: 2 mg Documented by: ТАТЬЯНА Admin: 07/06/20 00:25 Dose: 2 mg Documented by: ТАТЬЯНА Potassium Chloride/Sodium Chloride (Nacl 0.9% W/Kcl 20meq 1000ml) 1,000 mls @ 75 mls/hr IV .[id number] [facility] Last Admin: 07/07/20 07:53 Dose: 75 mls/hr Documented by: Infusion: 07/07/20 06:29 Dose: 75 mls/hr Documented by: Admin: 07/06/20 17:09 Dose: 75 mls/hr Documented by: Infusion: 07/06/20 16:45 Dose: 75 mls/hr Documented by: Admin: 07/06/20 03:25 Dose: 75 mls/hr Documented by: ТАТЬЯНА Infusion: 07/06/20 03:22 Dose: 75 mls/hr Documented by: ТАТЬЯНА Admin: 07/05/20 14:02 Dose: 75 mls/hr Documented by: [email or web address] Insulin Glargine (Insulin Glargine, Human 1 Unit/0.01 Ml) 10 unit SQ DAILY [facility] Last Admin: 07/06/20 09:07 Dose: 10 unit Documented by: DAVE Insulin Human Lispro (Insulin Lispro 1 Unit/0.01 Ml Unit) 0 unit SQ ACHS [facility]; Protocol Last Admin: 07/07/20 07:54 Dose: 2 unit Documented by: Admin: 07/06/20 21:19 Dose: 4 unit Documented by: ТАТЬЯНА Admin: 07/06/20 18:26 Dose: 2 unit Documented by: Admin: 07/06/20 12:22 Dose: 2 unit Documented by: Admin: 07/06/20 07:48 Dose: 6 unit Documented by: Admin: 07/05/20 21:08 Dose: 4 unit Documented by: ТАТЬЯНА Admin: 07/05/20 17:29 Dose: 2 unit Documented by: DAVE Levetiracetam (Levetiracetam 500 Mg Tablet) 500 mg PO BID [facility] Last Admin: 07/06/20 21:16 Dose: 500 mg Documented by: ТАТЬЯНА Admin: 07/06/20 09:07 Dose: 500 mg Documented by: Admin: 07/05/20 21:00 Dose: 500 mg Documented by: ТАТЬЯНА Melatonin (Melatonin 3 Mg Tablet) 6 mg PO QHS [facility] Last Admin: 07/06/20 21:16 Dose: 6 mg Documented by: ТАТЬЯНА Admin: 07/05/20 21:00 Dose: 6 mg Documented by: ТАТЬЯНА Metoprolol Tartrate (Metoprolol Tartrate 50 Mg Tablet) 100 mg PO BID [facility] Last Admin: 07/06/20 21:16 Dose: 100 mg Documented by: ТАТЬЯНА Admin: 07/06/20 09:06 Dose: 100 mg Documented by: DAVE Pantoprazole Sodium (Pantoprazole 40 Mg Vial) 40 mg IV BIDAC [facility] Last Admin: 07/07/20 07:54 Dose: 40 mg Documented by: Admin: 07/06/20 17:10 Dose: 40 mg Documented by: Admin: 07/06/20 07:17 Dose: 40 mg Documented by: Admin: 07/05/20 17:13 Dose: 40 mg Documented by: DAVE Potassium Chloride (Potassium Chloride 20 Meq/15 Ml Ml) 15 meq PT BIDCC [facility] Last Admin: 07/07/20 07:55 Dose: 15 meq Documented by: Admin: 07/06/20 17:10 Dose: 15 meq Documented by: Admin: 07/06/20 09:05 Dose: 15 meq Documented by: Admin: 07/05/20 17:11 Dose: 15 meq Documented by: DAVE Pregabalin (Pregabalin 100 Mg Capsule) 200 mg PO BID [facility] Admin: 07/06/20 21:17 Dose: 200 mg Documented by: ТАТЬЯНА Admin: 07/06/20 09:07 Dose: 200 mg Documented by: Admin: 07/05/20 21:00 Dose: 200 mg Documented by: ТАТЬЯНА Senna (Sennosides 1 Tablet) 2 tab PO HS [facility] Admin: 07/06/20 21:19 Dose: Not Given Documented by: ТАТЬЯНА Admin: 07/05/20 21:01 Dose: Not Given Documented by: ТАТЬЯНА Sodium Chloride (0.9 % Sodium Chloride 10 Ml Syringe) 10 ml IV Q8 [facility] Admin: 07/07/20 06:08 Dose: 10 ml Documented by: ТАТЬЯНА Admin: 07/06/20 21:20 Dose: 10 ml Documented by: ТАТЬЯНА Admin: 07/06/20 14:40 Dose: Not Given Documented by: Admin: 07/06/20 05:19 Dose: 10 ml Documented by: ТАТЬЯНА Admin: 07/05/20 21:09 Dose: 10 ml Documented by: ТАТЬЯНА Admin: 07/05/20 14:02 Dose: 10 ml Documented by: [email or web address] Shift Summary 07/07/20 04:29 Shift Summary by Mary Rhodes Patient admitted for sepsis, fecal impaction, and rectal bleeding signs/symptoms (states 2 days prior at home till seen) with sudden onset of encephalopathy symptoms during hospitalization that have greatly improved since 06/24 and she has returned to baseline with cognitive status. She is alert and oriented times three to four, used the call light appropriately, was given shower last evening and recalled appropriately names/events. She is up with 1 SBA/FWW/Gaitbelt and fatigues easily and becomes dyspneic with moderate exertion and has poor safety awareness and the bed alarm was utilized but not set off by the patient this shift. She sat on the edge of the bed or repositioned herself frequently in bed, pullup briefs in place for stress incontinence and no BM this shift, perineal area/abdominal panus redness greatly improved. SL IV left forearm, IV NS with 20 KCL infusing at 75 ml/hr into her right forearm. Dilaudid given twice PO for c/o chronic neck/back pain and she wishes to seek a referral to the pain clinic via her PCP upon her discharge. She is agreeable to going to [facility] upon discharge for PT/OT and re-conditioning, caregivers Pito is on vacation at this time. VSS, RA, HR 80s-90s and B/P normotensive with increase in Lopressor to 100 mg BID from 50 mg BID. Will update shift summary report at bedside. Initialized on 07/07/20 04:29 - END OF NOTE
[2020-07-07] MEDS ORDERED: HYDROmorphone 2 MG TABLET PO PRN (08:25)
[2020-07-07] MEDS: METOPROLOL TARTRATE 50 MG TABLET PO SCH (08:50)
[2020-07-07] MEDS: PREGABALIN 100 MG CAPSULE PO SCH (08:50)
[2020-07-07] MEDS: levETIRAcetam 500 MG TABLET PO SCH (08:51)
[2020-07-07] MEDS: DOCUSATE SODIUM 100 MG CAPSULE PO SCH ×2 (08:51→08:55)
[2020-07-07] MEDS: DILTIAZEM 180 MG CAP.XL.24H PO SCH (08:51)
[2020-07-07] MEDS: INSULIN GLARGINE, HUMAN 1 UNIT/0.01 ML SQ SCH (08:52)
[2020-07-07] MEDS: ENOXAPARIN 40 MG/0.4 ML SYRINGE SQ SCH (08:52)
[2020-07-07] MEDS ORDERED: DILTIAZEM 180 MG CAP.XL.24H PO SCH (09:00)
[2020-07-07] MEDS: AMANTADINE HCL 100 MG CAPSULE PO SCH (09:27)
== END 2020-07-07 13:35 | DRG 392 ==
LOC: ED 20:01 → ICU 23:28 → MEDSUR 07-05 16:05
PROVIDERS: ADMIT Family Medicine Adult Medicine; ATTEND Family Medicine Adult Medicine